=== PATIENT | male | born 1965 | race Caucasian/White ===

== ENCOUNTER 2019-09-26 08:03 | Outpatient (CLI) | payer MEDICAID, SELFPAY ==
[2019-09-26 08:58] VITALS: BMI 31.6
--- NOTE | 2019-09-26 09:22 | ECG_ITS ---
NAME OF STUDY: LEXISCAN SESTAMIBI STRESS TEST INDICATION: Chest Pain; Shortness of Breath NOTE: Please note that this is the electrocardiogram portion of the Lexiscan/Sestamibi stress test. The perfusion scan will be documented separately. DATA: Baseline heart rate was 85 beats per minute. Baseline blood pressure was 143/85 millimeters of mercury. Target heart rate was 167. Maximum heart rate achieved was 95. which was 56 % of the predicted target heart rate. Maximum blood pressure was 143/85 millimeters of mercury. The reason for ending the test was completion of the protocol. The patient experienced shortness of breath which was then resolved at the end of the test. ELECTROCARDIOGRAM: BASELINE: Sinus rhythm. Normal axis. Interventricular conduction delay, no ST-T changes suggestive of ischemia noted. No arrhythmia noted. EXERCISE: After Lexiscan injection, no ST-T changes suggestive of ischemic noted. No arrhythmia noted. CONCLUSION: Please note due to baseline abnormality of the EKG specificity and sensitivity of the EKG portion of LexiScan MIBI stress test will be low 1. EKG not suggestive of ischemia 2. Lexiscan injection unremarkable. 3. Perfusion scan will be documented separately. Electronically Signed On 09-26-2019 18:17:53 INSOLE AND HEEL STIFFENER by Bhaskar Ramachandran M.D. [email or web address]
--- NOTE | 2019-09-26 09:23 | NMCV_ITS ---
NM MIBI/MIBI Stress/Rest [address] Nicko Obrien Age: 54 Gender: M : 1965 Exam Date: 09/26/2019 09:14 Ordering Phys: Breana Marrero Technologist: LILY Verdin Exam Location: [facility] Indications: Chest Pain and S.O.B. STRESS TEST [facility] IMAGE PROTOCOL Rest/Stress 1 Lexiscan Day Radiopharmaceutical Dose (mCi) Administration Site Administered by Rest: Tc-99m 10.2 IV LILY Verdin Sestamibi Stress:Tc-99m 30.6 IV LILY Verdin Sestamibi Rest: 26-Sep-2019 60 Discovery 630 Stress: 26-Sep-2019 60 Discovery 630 0.4mg Lexiscan. Images obtained in supine and prone position. SPECT RESULTS Technical Quality: Good Raw Data Analysis: Normal, Soft tissue attenuation Image Corrections: No attenuation or motion correction applied Summed Stress Score: 1 Summed Rest Score: 0 Summed Difference Score: 1 PERFUSION FINDINGS SPECT images demonstrate homogeneous tracer distribution throughout the myocardium. FUNCTIONAL RESULTS (calculated via Gated SPECT) Stress Image LV EF (%): 70 Stress EDV (mL):98 TID: 0.96 Stress ESV (mL):29 Rest Image LV EF (%): 70 FUNCTIONAL FINDINGS: There is normal left ventricular systolic function. IMPRESSIONS Myocardial perfusion imaging is normal and low probability for obstructive coronary disease. EKG segment will be documented separately. Bhaskar Ramachandran MD (Electronically Signed) Final Date: 26 September 2019 13:06 S
[2019-09-26] MEDS: regadenoson 0.4 Mg/5 ml Syringe IVP (09:53)
[2019-09-26 10:07] VITALS: BP 143/85; PULSE 84
--- NOTE | 2019-09-26 10:10 | SUR.PREOP ---
Patient reports no pain or discomfort prior to the start of the procedure.
== END 2019-09-26 08:04 | disposition home or self-care (01) ==
LOC: RAD 08:11 → CDL 08:16
PROVIDERS: Family Provider Family Medicine; PCP Family Medicine; Visit Provider Nurse Practitioner Family
DX: R07.9 Chest pain, unspecified (principal); R53.83 Other fatigue; R06.02 Shortness of breath
CPT/HCPCS: 78452; 93017; A9500; J2785

== ENCOUNTER → 2019-10-24 09:30 | Outpatient (BNVA) | payer MEDICAID, SELFPAY | PROVIDERS: Family Provider Family Medicine; PCP Family Medicine; Visit Provider Specialist | DX: M25.562 Pain in left knee (principal); M25.561 Pain in right knee | CPT/HCPCS: 73560; 73565 ==

== ENCOUNTER 2019-10-31 15:57 | Emergency (ER) | payer MEDICAID, SELFPAY ==
[2019-10-31 16:01] VITALS: BMI 37.9
[2019-10-31 16:03] VITALS: BP 163/75; PULSE 102; RESP 18; TEMP 36.9; O2SAT 97
--- NOTE | 2019-10-31 16:04 | ED_ITS ---
Entered by Vero Pérez, acting as scribe for Ricardo Vallejo DO Documented by User: Darcy Ochoa MD 10/31/19 19:22 HPI - Neuro Symptoms/Deficit General: Chief Complaint: Neuro Symptoms/Deficit Stated Complaint: Poss stroke? Time Seen by Provider: 10/31/19 16:04 PFSH ED PFSH: Statuses (acute, chronic, etc) shown below reflect problem list status as previously entered and may not be historically accurate Social History Smoking and tobacco status: never smoked Alcohol intake: former Course Vital Signs: Vital signs: Vital Signs Temperature 98.4 F 10/31/19 16:03 Pulse Rate 99 10/31/19 19:22 Respiratory Rate 21 H 10/31/19 19:22 Blood Pressure 133/61 10/31/19 19:22 Pulse Oximetry 98 10/31/19 19:22 MDM - Neuro Symptoms/Deficit MDM Narrative: Medical decision making narrative: Patient presents here with paresthesias that is since resolved. Patient's had the symptoms for a while has no signs of acute stroke here. Patient's head CT is normal. Hemoglobin is lower than previous. I did a rectal exam that showed no signs of blood in his stool. I spoke to patient by possible admission he states he feels improved and would like to go home. I feel he is stable for discharge and informed him he needs to follow-up with his primary doctor in 3 to 5 weeks to have his hemoglobin checked. He is to return to ER if he worsens. He understands and agrees to this plan. Lab Data: Labs: Lab Results 10/31/19 10/31/19 10/31/19 Range/Units 16:15 16:36 16:36 WBC 4.3 (4.0-10.0) 10^3/ uL RBC 4.25 (4.1-5.3) 10^6/u L Hgb 8.2 L (11.7-16.6) g/dL Hct 29.7 L (42.0-52.0) % MCV 69.9 L (80-94) fL MCH 19.3 L (28.0-34.0) pg MCHC 27.6 L (30.0-36.0) g/dL RDW 15.9 H (12.1-15.1) % Plt Count 240 (130-400) 10^3/c mm MPV 10.3 (7.4-10.4) fL Neut % (Auto) 58.5 % Lymph % (Auto) 26.0 % [place] % (Auto) 9.6 % Eos % (Auto) 5.2 % Baso % (Auto) 0.5 % Neut # (Auto) 2.5 (1.8-7.7) 10^3/u L Lymph # (Auto) 1.1 (0.8-4.8) 10^3/u L [place] # (Auto) 0.4 (0.2-0.9) 10^3/u L Eos # (Auto) 0.2 (0.0-0.8) 10^3/u L Baso # (Auto) 0.0 (0.0-0.1) 10^3/u L Nucleated RBC % (a uto) 0 % Nucleated RBCs # 0.0 /100WBC PT 14.90 H (10.5-13.3) SECO NDS INR 1.13 (0.8-1.2) APTT 34.1 (23.9-36.7) SECO NDS Sodium (136-145) mmol/L Potassium (3.5-5.1) mmol/L Chloride (98-107) mmol/L Carbon Dioxide (22-29) mmol/L Anion Gap (5-19) BUN (6-20) mg/dL Creatinine (0.7-1.2) mg/dL GFR Calculation (90-130) mL/min Glucose (65-115) mg/dL POC Glucose 294 (70-110) mg/dL Calcium (8.5-10.5) mg/dL Total Bilirubin (0.15-1.2) mg/dL AST (0-40) U/L ALT (0-41) U/L Alkaline Phosphata se (40-130) IU/L Total Protein (6.6-8.7) g/dL Albumin (3.5-5.2) g/dL Globulin (1.3-4.6) g/dL Urine Color (Yellow) Urine Appearance (CLEAR) Urine pH (5-7) Ur Specific Gravit y (1.005-1.030) Urine Protein (Negative) Urine Glucose (UA) (Normal) Urine Ketones (Negative) Urine Occult Blood (Negative) Urine Nitrate (Negative) Urine Bilirubin (NEGATIVE) Urine Urobilinogen (Negative) mg/dL Ur Leukocyte Jessica ase (Negative) Urine Opiates Scre en (Negative) ng/mL Ur Barbiturates Sc reen (Negative) ng/mL Ur Phencyclidine S crn (Negative) ng/mL Ur Amphetamines Sc reen (Negative) ng/mL U Benzodiazepines Scrn (Negative) ng/mL Urine Cocaine Scre en (Negative) ng/mL U Marijuana (THC) Screen (Negative) ng/mL 10/31/19 10/31/19 10/31/19 Range/Units 16:36 17:45 17:45 WBC (4.0-10.0) 10^3/ uL RBC (4.1-5.3) 10^6/u L Hgb (11.7-16.6) g/dL Hct (42.0-52.0) % MCV (80-94) fL MCH (28.0-34.0) pg MCHC (30.0-36.0) g/dL RDW (12.1-15.1) % Plt Count (130-400) 10^3/c mm MPV (7.4-10.4) fL Neut % (Auto) % Lymph % (Auto) % [place] % (Auto) % Eos % (Auto) % Baso % (Auto) % Neut # (Auto) (1.8-7.7) 10^3/u L Lymph # (Auto) (0.8-4.8) 10^3/u L [place] # (Auto) (0.2-0.9) 10^3/u L Eos # (Auto) (0.0-0.8) 10^3/u L Baso # (Auto) (0.0-0.1) 10^3/u L Nucleated RBC % (a uto) % Nucleated RBCs # /100WBC PT (10.5-13.3) SECO NDS INR (0.8-1.2) APTT (23.9-36.7) SECO NDS Sodium 132 L (136-145) mmol/L Potassium 4.2 (3.5-5.1) mmol/L Chloride 98 (98-107) mmol/L Carbon Dioxide 24 (22-29) mmol/L Anion Gap 14.2 (5-19) BUN 8 (6-20) mg/dL Creatinine 0.8 (0.7-1.2) mg/dL GFR Calculation 101.1 (90-130) mL/min Glucose 319 H (65-115) mg/dL POC Glucose (70-110) mg/dL Calcium 9.3 (8.5-10.5) mg/dL Total Bilirubin 0.4 (0.15-1.2) mg/dL AST 55 H (0-40) U/L ALT 48 H (0-41) U/L Alkaline Phosphata se 135 H (40-130) IU/L Total Protein 7.4 (6.6-8.7) g/dL Albumin 4.1 (3.5-5.2) g/dL Globulin 3.3 (1.3-4.6) g/dL Urine Color Yellow (Yellow) Urine Appearance Clear (CLEAR) Urine pH 5 (5-7) Ur Specific Gravit y 1.015 (1.005-1.030) Urine Protein Neg (Negative) Urine Glucose (UA) 4+ H (Normal) Urine Ketones Negative (Negative) Urine Occult Blood Neg (Negative) Urine Nitrate Negative (Negative) Urine Bilirubin Neg (NEGATIVE) Urine Urobilinogen Norm (Negative) mg/dL Ur Leukocyte Jessica ase Negative (Negative) Urine Opiates Scre en Negative (Negative) ng/mL Ur Barbiturates Sc reen Negative (Negative) ng/mL Ur Phencyclidine S crn Negative (Negative) ng/mL Ur Amphetamines Sc reen Negative (Negative) ng/mL U Benzodiazepines Scrn Negative (Negative) ng/mL Urine Cocaine Scre en Negative (Negative) ng/mL U Marijuana (THC) Screen Negative (Negative) ng/mL Discharge Plan Discharge Patient Disposition: Home, Self-Care Clinical Impression: Paresthesia Anemia Qualifiers: Anemia type: unspecified type Qualified Code(s): D64.9 - Anemia, unspecified Condition: Stable Prescriptions: No Action Humira Pen 40 mg/0.8 mL pen injector kit 40 mg SUBCUT ONCE RF: 0 pantoprazole 40 mg tablet,delayed release (DR/EC) 40 mg PO QDAY RF: 0 venlafaxine [Effexor XR] 150 mg capsule,extended release 24hr 150 mg PO QDAY RF: 0 aspirin [Adult Low Dose Aspirin] 81 mg tablet,delayed release (DR/EC) 81 mg PO QDAY RF: 0 metformin 500 mg tablet 500 mg PO BID RF: 0 lisinopril 20 mg tablet 20 mg PO QDAY RF: 0 lovastatin 20 mg tablet 20 mg PO QDAY RF: 0 tizanidine 4 mg capsule 4 mg PO TID PRNRF: 0 naproxen 500 mg tablet 500 mg PO BID RF: 0 amitriptyline 50 mg tablet 50 mg PO QDAY RF: 0 tramadol 50 mg tablet 50 mg PO BID PRNRF: 0 isosorbide mononitrate 30 mg tablet extended release 24 hr 30 mg PO QDAY 30 Days Qty: 30 RF: 0 Discharge Orders: Discharge Order (Routine); Ordered 10/31/19 Ordered By: Darcy Ochoa Referrals: Luis Fernando Rhodes [Primary Care Provider] - 4-7 days Discharge Diet: Advance as tolerated Discharge Activity: Resume usual activity Patient Instructions: Paresthesia (ED), Anemia (ED) Discharge Date/Time: 10/31/19 19:22 Coding Level of Care Code ED Stretcher Leveler Operator for Chg Fwd Exam Problem Focused Documented by User: Ricardo Vallejo DO 11/03/19 06:37 HPI - Neuro Symptoms/Deficit General: Chief Complaint: Neuro Symptoms/Deficit Stated Complaint: Poss stroke? Time Seen by Provider: 10/31/19 16:04 Source: patient and family Mode of arrival: ambulatory Limitations: no limitations History of Present Illness: HPI Narrative: 54 yo male presents with numbness to R face and R arm. pt states this started today. pt has had chest pain in the L chest. pt states he has a hx of strokes. pt denies any other symptoms at this time. No history of previous coronary artery disease. Symptoms are not associated any exertions. Onset (ago): hour(s) (today) Timing confirmed by: spouse and family member Location: right face and right arm Severity: mild Quality: numb Relieving factors: none Exacerbating factors: none Context: sudden onset Associated symptoms: Reports no associated symptoms and chest pain (Left sided); Deny headache(s), malaise, nausea, vertigo or vomiting Treatments Prior to Arrival: none Review of Systems Const: Denies: fever, chills, body aches, fatigue, malaise or night sweats Eyes: Denies: photophobia ENMT: Denies: throat pain, oral sores/lesions, dental pain, nasal discharge or nasal congestion Card: Reports: chest pain (Left sided) Resp: Denies: shortness of breath, productive cough, non-productive cough or wheezing GI: Denies: abdominal pain, nausea, vomiting, vomiting blood, coffee grounds in vomit, difficulty swallowing, heartburn/indigestion, diarrhea, constipation, cramping, blood in stool or black tarry stool : Denies: flank pain, difficulty urinating, painful urination, urinary frequency, urinary urgency, urinary incontinence or blood in urine Skin/Breast: Denies: rash, itching or redness Neuro: Denies: headache, weakness in extremities, changes in sensation, lack of coordination, difficulty walking, frequent falls, dizziness, vertigo or confusion Psych: Denies: anxiety, depression, loss of interest, visual hallucinations, auditory hallucinations, suicidal ideation or homicidal ideation Endo: Denies: excessive urination, excessive thirst, tired all the time or cold intolerance Jayson/Lymph: Denies: easy bruising, easy bleeding, petechiae, enlarged lymph nodes or tender lymph nodes All/Imm: Denies: acute wheezing PFSH ED PFSH: Statuses (acute, chronic, etc) shown below reflect problem list status as previously entered and may not be historically accurate Social History Smoking and tobacco status: never smoked Alcohol intake: former NIH stroke score NIHSS: Level Of Consciousness - 1a: 0 Level Of Consciousness Questions - 1b: Both Correct Level Of Consciousness Commands - 1c: Both Correct Best Gaze - 2: Normal Visual Ch - 3: No Visual Loss Facial Palsy - 4: Normal Motor Arm Right - 5: No Drift Motor Arm Left - 5: No Drift Motor Leg Right - 6: No Drift Motor Leg Left - 6: No Drift Limb Ataxia - 7: Absent Sensory - 8: Mild To Moderate Loss Best Language - 9: No Aphasia Dysarthia - 10: Normal Extinction And Inattention - 11: 0 Score: Total Score: 1 Physical Exam Const: COMMON NORMALS: average body habitus, oriented x3 and alert GENERAL APPEARANCE: cooperative, comfortable, well kempt and well developed NUTRITIONAL APPEARANCE: obese ORIENTATION/CONSCIOUSNESS: Yes awake, Yes oriented to person and Yes oriented to place HENMT: COMMON NORMALS: normocephalic, head/scalp atraumatic, EAC's normal, TM's normal bilaterally, external nose normal, moist oral mucous membranes and oropharynx normal HEAD & SCALP: normocephalic and atraumatic NOSE: external nose normal EXTERNAL AUDITORY CANAL: EAC's normal TYMPANIC MEMBRANE: TM's normal bilaterally MOUTH: oral and palatal mucosa normal, lip normal and tongue normal THROAT: posterior oropharynx normal and tonsils normal Eye: COMMON NORMALS: PERRL, EOMs intact bilaterally, conjunctivae normal and no scleral icterus CONJUNCTIVA: Yes conjunctivae normal PUPIL: Yes PERRL Neck/C-Spine: COMMON NORMALS: full ROM, no lymphadenopathy, supple, no meningeal signs and thyroid normal THYROID: thyroid normal and asymmetrical Lymph: LYMPHATIC: no lymphadenopathy noted Resp: COMMON NORMALS: normal respiratory effort, no retractions, no use of accessory muscles and clear to auscultation bilaterally AUSCULTATION: clear to auscultation bilaterally GI: COMMON NORMALS: normal to inspection, nondistended, normoactive bowel sounds, soft to palpation and no hepatosplenomegaly PALPATION: Yes soft and Yes no hepatosplenomegaly : COMMON NORMALS: Yes no CVA tenderness BLADDER/KIDNEY EXAM: Yes no CVA tenderness Back/Pelvis: COMMON NORMALS: no CVA tenderness LUMBAR SPINE/LOWER BACK: Yes normal to inspection Neuro: COMMON NORMALS: oriented x3 SENSORIUM/ORIENTATION: Yes alert, Yes oriented to person and Yes oriented to place MENINGEAL SIGNS: Yes no meningeal signs Psych: APPEARANCE: Yes well kempt Skin: COMMON NORMALS: no rashes or lesions noted and skin turgor normal GENERAL SKIN EXAM: no rashes or lesions noted and turgor normal Course ED course: Care transferred to Dr. Ochoa at change of shift Vital Signs: Vital signs: Vital Signs Temperature 98.4 F 10/31/19 16:03 Pulse Rate 99 10/31/19 19:22 Respiratory Rate 21 H 10/31/19 19:22 Blood Pressure 133/61 10/31/19 19:22 Pulse Oximetry 98 10/31/19 19:22 MDM - Neuro Symptoms/Deficit Lab Data: Labs: Lab Results 10/31/19 10/31/19 10/31/19 Range/Units 16:15 16:36 16:36 WBC 4.3 (4.0-10.0) 10^3/ uL RBC 4.25 (4.1-5.3) 10^6/u L Hgb 8.2 L (11.7-16.6) g/dL Hct 29.7 L (42.0-52.0) % MCV 69.9 L (80-94) fL MCH 19.3 L (28.0-34.0) pg MCHC 27.6 L (30.0-36.0) g/dL RDW 15.9 H (12.1-15.1) % Plt Count 240 (130-400) 10^3/c mm MPV 10.3 (7.4-10.4) fL Neut % (Auto) 58.5 % Lymph % (Auto) 26.0 % [place] % (Auto) 9.6 % Eos % (Auto) 5.2 % Baso % (Auto) 0.5 % Neut # (Auto) 2.5 (1.8-7.7) 10^3/u L Lymph # (Auto) 1.1 (0.8-4.8) 10^3/u L [place] # (Auto) 0.4 (0.2-0.9) 10^3/u L Eos # (Auto) 0.2 (0.0-0.8) 10^3/u L Baso # (Auto) 0.0 (0.0-0.1) 10^3/u L Nucleated RBC % (a uto) 0 % Nucleated RBCs # 0.0 /100WBC PT 14.90 H (10.5-13.3) SECO NDS INR 1.13 (0.8-1.2) APTT 34.1 (23.9-36.7) SECO NDS Sodium (136-145) mmol/L Potassium (3.5-5.1) mmol/L Chloride (98-107) mmol/L Carbon Dioxide (22-29) mmol/L Anion Gap (5-19) BUN (6-20) mg/dL Creatinine (0.7-1.2) mg/dL GFR Calculation (90-130) mL/min Glucose (65-115) mg/dL POC Glucose 294 (70-110) mg/dL Calcium (8.5-10.5) mg/dL Total Bilirubin (0.15-1.2) mg/dL AST (0-40) U/L ALT (0-41) U/L Alkaline Phosphata se (40-130) IU/L Total Protein (6.6-8.7) g/dL Albumin (3.5-5.2) g/dL Globulin (1.3-4.6) g/dL Urine Color (Yellow) Urine Appearance (CLEAR) Urine pH (5-7) Ur Specific Gravit y (1.005-1.030) Urine Protein (Negative) Urine Glucose (UA) (Normal) Urine Ketones (Negative) Urine Occult Blood (Negative) Urine Nitrate (Negative) Urine Bilirubin (NEGATIVE) Urine Urobilinogen (Negative) mg/dL Ur Leukocyte Jessica ase (Negative) Urine Opiates Scre en (Negative) ng/mL Ur Barbiturates Sc reen (Negative) ng/mL Ur Phencyclidine S crn (Negative) ng/mL Ur Amphetamines Sc reen (Negative) ng/mL U Benzodiazepines Scrn (Negative) ng/mL Urine Cocaine Scre en (Negative) ng/mL U Marijuana (THC) Screen (Negative) ng/mL 10/31/19 10/31/19 10/31/19 Range/Units 16:36 17:45 17:45 WBC (4.0-10.0) 10^3/ uL RBC (4.1-5.3) 10^6/u L Hgb (11.7-16.6) g/dL Hct (42.0-52.0) % MCV (80-94) fL MCH (28.0-34.0) pg MCHC (30.0-36.0) g/dL RDW (12.1-15.1) % Plt Count (130-400) 10^3/c mm MPV (7.4-10.4) fL Neut % (Auto) % Lymph % (Auto) % [place] % (Auto) % Eos % (Auto) % Baso % (Auto) % Neut # (Auto) (1.8-7.7) 10^3/u L Lymph # (Auto) (0.8-4.8) 10^3/u L [place] # (Auto) (0.2-0.9) 10^3/u L Eos # (Auto) (0.0-0.8) 10^3/u L Baso # (Auto) (0.0-0.1) 10^3/u L Nucleated RBC % (a uto) % Nucleated RBCs # /100WBC PT (10.5-13.3) SECO NDS INR (0.8-1.2) APTT (23.9-36.7) SECO NDS Sodium 132 L (136-145) mmol/L Potassium 4.2 (3.5-5.1) mmol/L Chloride 98 (98-107) mmol/L Carbon Dioxide 24 (22-29) mmol/L Anion Gap 14.2 (5-19) BUN 8 (6-20) mg/dL Creatinine 0.8 (0.7-1.2) mg/dL GFR Calculation 101.1 (90-130) mL/min Glucose 319 H (65-115) mg/dL POC Glucose (70-110) mg/dL Calcium 9.3 (8.5-10.5) mg/dL Total Bilirubin 0.4 (0.15-1.2) mg/dL AST 55 H (0-40) U/L ALT 48 H (0-41) U/L Alkaline Phosphata se 135 H (40-130) IU/L Total Protein 7.4 (6.6-8.7) g/dL Albumin 4.1 (3.5-5.2) g/dL Globulin 3.3 (1.3-4.6) g/dL Urine Color Yellow (Yellow) Urine Appearance Clear (CLEAR) Urine pH 5 (5-7) Ur Specific Gravit y 1.015 (1.005-1.030) Urine Protein Neg (Negative) Urine Glucose (UA) 4+ H (Normal) Urine Ketones Negative (Negative) Urine Occult Blood Neg (Negative) Urine Nitrate Negative (Negative) Urine Bilirubin Neg (NEGATIVE) Urine Urobilinogen Norm (Negative) mg/dL Ur Leukocyte Jessica ase Negative (Negative) Urine Opiates Scre en Negative (Negative) ng/mL Ur Barbiturates Sc reen Negative (Negative) ng/mL Ur Phencyclidine S crn Negative (Negative) ng/mL Ur Amphetamines Sc reen Negative (Negative) ng/mL U Benzodiazepines Scrn Negative (Negative) ng/mL Urine Cocaine Scre en Negative (Negative) ng/mL U Marijuana (THC) Screen Negative (Negative) ng/mL Imaging Data^: CT Head: Radiologist's impression: [address] [address] [address] Scan Report Signed Patient: Nicko Obrien #: [id number] : 1965Acct#:[id number] Age/Sex: 54 / MADM Date: 10/31/19 Loc: ERRoom/Bed: Attending Dr: Ordering Provider/Ordering MD: Ricardo Vallejo DO Date of Service: 10/31/19 Procedure(s): CT head wo con* [id number] Accession Number(s): [id number] Report Number: [id number] WS: [id number] CT scan of the head, 10/31/2019 Clinical Data: Symptoms of Acute Stroke Comparison: MRI of the head and brain, 12/21/2009 DLP: 891.[address] scans at [facility] use at least one of these dose optimization techniques: automated exposure control; mA and/or kV adjustment per patient size (includes targeted exams where dose is matched to clinical indication); or iterative reconstruction. Findings: The ventricular system is normal without shift. No recent infarct or hemorrhage is seen. There are no abnormal intracerebral masses. The cerebellum and brainstem are not remarkable. Bony windows of the skull and skull base show no fractures or erosions. The mastoid air cells, internal auditory canals, sella turcica, intraorbital contents, and paranasal sinuses are unremarkable. CT/CT head wo con* [id number] Impression: Negative CT scan of the head Dictated By:Elsa Blas MD Signed By:Elsa Blasigned Date/Time:10/31/19 1618 Discharge Plan Discharge Patient Disposition: Home, Self-Care Clinical Impression: Paresthesia Anemia Qualifiers: Anemia type: unspecified type Qualified Code(s): D64.9 - Anemia, unspecified Condition: Stable Prescriptions: No Action Humira Pen 40 mg/0.8 mL pen injector kit 40 mg SUBCUT ONCE RF: 0 pantoprazole 40 mg tablet,delayed release (DR/EC) 40 mg PO QDAY RF: 0 venlafaxine [Effexor XR] 150 mg capsule,extended release 24hr 150 mg PO QDAY RF: 0 aspirin [Adult Low Dose Aspirin] 81 mg tablet,delayed release (DR/EC) 81 mg PO QDAY RF: 0 metformin 500 mg tablet 500 mg PO BID RF: 0 lisinopril 20 mg tablet 20 mg PO QDAY RF: 0 lovastatin 20 mg tablet 20 mg PO QDAY RF: 0 tizanidine 4 mg capsule 4 mg PO TID PRNRF: 0 naproxen 500 mg tablet 500 mg PO BID RF: 0 amitriptyline 50 mg tablet 50 mg PO QDAY RF: 0 tramadol 50 mg tablet 50 mg PO BID PRNRF: 0 isosorbide mononitrate 30 mg tablet extended release 24 hr 30 mg PO QDAY 30 Days Qty: 30 RF: 0 Discharge Orders: Discharge Order (Routine); Ordered 10/31/19 Ordered By: Darcy Ochoa Referrals: Luis Fernando Rhodes [Primary Care Provider] - 4-7 days Discharge Diet: Advance as tolerated Discharge Activity: Resume usual activity Patient Instructions: Paresthesia (ED), Anemia (ED) Discharge Date/Time: 10/31/19 19:22 Coding Level of Care Code ED Stretcher Leveler Operator for Chg Fwd Exam Problem Focused The documentation recorded by the Beto damian Bridget Annette, accurately reflects the service I personally performed and the decisions made by Yoni tsai Curtis L, DO Oct 31, 2019 15:57
--- NOTE | 2019-10-31 16:12 | ECG_ITS ---
Measurements Intervals [place] Rate: 101 P: 56 OH: 156 QRS: 20 QRSD: 92 T: 46 QT: 330 QTc: 429 SINUS TACHYCARDIA ABNORMAL RHYTHM ECG Compared to ECG 03/26/2018 07:48:34 Atrial-paced complex(es) or rhythm no longer present Myocardial infarct finding no longer present Electronically Signed On 10-31-2019 20:06:45 LINE CONSTRUCTION ENGINEER by Bhaskar Ramachandran M.D. [id number]
--- NOTE | 2019-10-31 16:12 | CT_ITS ---
WS: [id number] CT scan of the head, 10/31/2019 Clinical Data: Symptoms of Acute Stroke Comparison: MRI of the head and brain, 12/21/2009 DLP: 891.[address] scans at [facility] use at least one of these dose optimization techniques: automat ed exposure control; mA and/or kV adjustment per patient size (includes targeted exams where dose is matched to clinical indication); or iterative reconstruction. Findings: The ventricular system is normal without shift. No recent infarct or hemorrhage is seen. There are no abnormal intracerebral masses. The cerebellum and brainstem are not remarkable. Bony windows of the skull and skull base show no fractures or erosions. The mastoid air cells, materials intern al auditory canals, sella turcica, intraorbital contents, and paranasal sinuses are unremarkable. CT/CT head wo con* [id number] Impression: Negative CT scan of the head
[2019-10-31 16:21] LABS: Glucose Point of Care 294 mg/dL (70-110)
[2019-10-31] MEDS: sodium chloride 0.9% 500 ML 999 ML IV (16:47)
[2019-10-31 17:01] LABS: Basophils % 0.5 %; Eosinophils # 0.2 10^3/uL (0.0-0.8); Eosinophils % 5.2 %; Hematocrit 29.7 % (42.0-52.0); Hemoglobin 8.2 g/dL (11.7-16.6); Lymphocytes # 1.1 10^3/uL (0.8-4.8); Mean Corpuscular HGB Conc 27.6 g/dL (30.0-36.0); Mean Corpuscular Hemoglobin 19.3 pg (28.0-34.0); Mean Corpuscular Volume 69.9 fL (80-94); Mean Platelet Volume 10.3 fL (7.4-10.4); Monocytes # 0.4 10^3/uL (0.2-0.9); Monocytes % 9.6 %; Neutrophils # 2.5 10^3/uL (1.8-7.7); Neutrophils % 58.5 %; Nucleated Red Blood Cells % 0 %; Platelet Count 240 10^3/cmm (130-400); Red Blood Count 4.25 10^6/uL (4.1-5.3); Red Cell Distribution Width 15.9 % (12.1-15.1); White Blood Count 4.3 10^3/uL (4.0-10.0)
[2019-10-31 17:17] LABS: INR 1.13 (0.8-1.2)
[2019-10-31 17:18] LABS: Partial Thromboplastin Time 34.1 SECONDS (23.9-36.7)
[2019-10-31 17:19] LABS: Alanine Aminotransferase 48 U/L (0-41); Albumin Level 4.1 g/dL (3.5-5.2); Alkaline Phosphatase 135 IU/L (40-130); Anion Gap 14.2 (5-19); Aspartate Amino Transferase 55 U/L (0-40); Blood Urea Nitrogen 8 mg/dL (6-20); Calcium 9.3 mg/dL (8.5-10.5); Carbon Dioxide 24 mmol/L (22-29); Chloride 98 mmol/L (98-107); Globulin 3.3 g/dL (1.3-4.6); Glomerular Filtration Rate 101.1 mL/min (90-130); Glucose 319 mg/dL (65-115); Potassium 4.2 mmol/L (3.5-5.1); Sodium 132 mmol/L (136-145); Total Bilirubin 0.4 mg/dL (0.15-1.2); Total Protein 7.4 g/dL (6.6-8.7)
[2019-10-31 18:03] LABS: Add Urine Microscopic? NO
[2019-10-31 18:32] LABS: Amphetamines Screen Urine Negative (Negative); Barbiturates Screen Urine Negative (Negative); Benzodiazepines Screen Urine Negative (Negative); Cocaine Screen Urine Negative (Negative); Opiate Screen Urine Negative (Negative); PCP Screen Urine Negative (Negative); THC Screen Urine Negative (Negative)
[2019-10-31 18:37] LABS: Bilirubin Urine Neg (NEGATIVE); Blood Urine Neg (Negative); Glucose Urine UA 4+ (Normal); Ketones Urine Negative (Negative); Leukocyte Esterase Urine Negative (Negative); Nitrate Urine Negative (Negative); Protein Urine Neg (Negative); Specific Gravity, Urine 1.015 (1.005-1.030); Urine Appearance Clear (CLEAR); Urine Color Yellow (Yellow); Urobilinogen Urine Norm (Negative); pH Urine 5 (5-7)
[2019-10-31 19:22] VITALS: BP 133/61; PULSE 99; RESP 21; O2SAT 98
--- NOTE | 2019-11-04 14:31 | DCPLANNER ---
renal case manager had message to speak with patient about getting established with a primary care. renal case manager called patient, unable to speak with patient at this time, a voicemail was left for patient to return manager case phone call.
== END 2019-10-31 19:22 | disposition home or self-care (01) ==
PROVIDERS: Family Medicine; Emergency Provider Emergency Medicine; Family Provider Family Medicine; PCP Family Medicine
DX: R20.2 Paresthesia of skin (principal); D64.9 Anemia, unspecified; Z79.82 Long term (current) use of aspirin; Z79.4 Long term (current) use of insulin
CPT/HCPCS: 36415; 36416; 70450; 80053; 80307; 81003; 82962; 85025; 85610; 85730; 93005; 96360; 99283; 99284; A9270; J7040

== ENCOUNTER 2019-11-03 10:52 | Outpatient (CLI) | payer MEDICAID, SELFPAY ==
--- NOTE | 2019-11-03 11:45 | MR_ITS ---
WS: [id number] MRI RIGHT KNEE HISTORY: Pain COMPARISON: Knee radiograph 10/24/2019 Anterior cruciate ligament: Intact. Posterior cruciate ligament: Intact. Medial collateral ligament: Intact. Posterior lateral corner structures: Intact. Medial menisci: Intrasubstance degeneration in the posterior horn. No full-thickness tear. Lateral meniscus: Intact. Normal signal, size and shape. Extensor mechanism: Distal quadriceps tendon and patellar tendons are intact. Fluid and soft tissue: There is a small suprapatellar joint effusion. No Shelton's cyst. Osseous and articular structures: Patellofemoral compartment: Very slight lateral subluxation of the patella. There is mild thinning an d fissuring of the cartilage, greatest over the medial facet. No marrow edema. Medial compartment: Normal. Lateral compartment: Normal. MR/MR knee RT wo con* [id number] IMPRESSION: 1. Small suprapatellar joint effusion. 2. Mild lateral subluxation of the patella and mild fissuring of the patellar cartilage.
== END 2019-11-03 10:53 | disposition home or self-care (01) ==
LOC: RADSHAW 10:56
PROVIDERS: Family Provider Family Medicine; PCP Family Medicine; Visit Provider Specialist
DX: S83.011A Lateral subluxation of right patella, initial encounter (principal); X58.XXXA Exposure to other specified factors, initial encounter; M25.461 Effusion, right knee
CPT/HCPCS: 73721

== ENCOUNTER 2019-11-20 23:11 | Emergency (ER) | payer MEDICAID, SELFPAY ==
[2019-11-20 23:16] VITALS: BP 126/68; PULSE 96; RESP 18; TEMP 37.3; O2SAT 96; BMI 36.0
[2019-11-21] VITALS (11 sets, daily range): BP systolic 127–154; BP diastolic 56–86; PULSE 85–96; RESP 14–18; TEMP 36.6–36.9; O2SAT 95
--- NOTE | 2019-11-21 01:47 | ED_ITS ---
Entered by Katia Nuñez, acting as scribe for Ej Piper DO Nov 20, 2019 23:11 HPI - General Adult General: Chief complaint: General Medical Stated complaint: HENDRICKSON/SOB Time Seen by Provider: 11/21/19 01:46 Source: patient Mode of arrival: ambulatory History of Present Illness: HPI narrative: 54 y/o male presents to the ED with complaint of fever ( 100.1), cough and congestion. Pt states he has had the cough for a month, and congestion/HENDRICKSON for the past few days. He has had green/yellow sputum. He has been using his inhaler, as prescribed and doing his scheduled breathing treatments. He has family hx of heart dz and is scheduled for cardiac testing soon. Pt states he has a hx of anemia and is scheduled for an upper and lower scope, later this month. MD complaint: Congestion/HENDRICKSON/Cough Location: head and chest Severity: mild Pain Consistency: intermittent Associated symptoms: Reports cough, dyspnea, headache(s) and short of breath; Deny confusion, nausea, rash, palpitations or vomiting Review of Systems Const: Reports: fever; Denies: chills Eyes: Denies: change in vision or blurry vision ENMT: Reports: post nasal drip; Denies: painful swallowing, swelling of lips/tongue or facial/sinus pain Card: Denies: palpitations, irregular heart rhythm, edema or swelling of fee t/ankles Resp: Reports: shortness of breath and productive cough; Denies: non-productive cough or wheezing GI: Denies: abdominal pain, nausea, vomiting, rectal pain, blood in stool or black tarry stool : Denies: difficulty urinating, painful urination, urinary frequency, urinary urgency or blood in urine Musc: Reports: extremity swelling; Denies: neck pain, back pain, redness or joint warmth Skin/Breast: Denies: rash, itching or redness Neuro: Reports: headache; Denies: dizziness, vertigo or confusion Psych: Denies: anxiety PFSH ED PFSH: Social History Smoking and tobacco status: never smoked Alcohol intake: former Lives independently: Yes Household members: spouse History of recent travel: No Physical Exam Const: COMMON NORMALS: alert GENERAL APPEARANCE: well developed ORIENTATION/CONSCIOUSNESS: Yes awake, Yes oriented to person, Yes oriented to place and Yes oriented to time HENMT: COMMON NORMALS: normocephalic, external ears normal, external nose normal and moist oral mucous membranes HEAD & SCALP: normocephalic; no scalp tenderness FACE & SINUS: normal facial exam NOSE: external nose normal and no nasal discharge EXTERNAL EAR: Yes external ears normal MOUTH: tongue normal THROAT: posterior oropharynx normal; no peritonsillar mass Eye: COMMON NORMALS: PERRL, EOMs intact bilaterally and conjunctivae normal EYELID: eyelids normal CONJUNCTIVA: Yes conjunctivae normal PUPIL: Yes PERRL Neck/C-Spine: COMMON NORMALS: full ROM Chest: COMMONS NORMALS: inspection of chest normal CHEST: Yes symmetrical chest wall rise and No tenderness Resp: COMMON NORMALS: clear to auscultation bilaterally EFFORT & INSPEC TION: No tachypneic, No respiratory distress, No retractions, No uses accessory muscles and No tracheal deviation AUSCULTATION: clear to auscultation bilaterally, no rhonchi, no wheezes and diminished lung sounds (mild) Cardio: COMMON NORMALS: regular rate and regular rhythm RATE: regular rate RHYTHM: regular rhythm HEART SOUNDS: no murmurs PERIPHERAL PULSES: radial pulses present GI: INSPECTION: No abdominal distension AUSCULTATION: No hyperactive bowel sounds and No hypoactive bowel sounds PALPATION: No tender, No guarding and No rigid PERCUSSION: no dullness to percussion and no tympanic to percussion Extremity: GENERAL: Yes edema (+1 bilateral) Neuro: SENSORIUM/ORIENTATION: Yes alert, Yes oriented to person, Yes oriented to place and Yes oriented to time Psych: COMMON NORMALS: mental status grossly normal and speech normal SPEECH: Yes normal speech Skin: COMMON NORMALS: no rashes or lesions noted GENERAL SKIN EXAM: no rashes or lesions noted Course Vital Signs: Vital signs: Vital Signs Temperature 98.4 F 11/21/19 06:17 Pulse Rate 96 11/20/19 23:16 Respiratory Rate 18 11/20/19 23:16 Blood Pressure 126/68 11/20/19 23:16 Pulse Oximetry 96 11/20/19 23:16 MDM - General Adult MDM Narrative: Medical decision making narrative: 54-year-old male presents with shortness of breath, cough, and sputum production. He has a history of anemia, and had a hemoglobin of 8.4 last week. It 7.4 today. His other laboratory is benign. He notes that he has endoscopies scheduled I believe next week. His chest x-ray is free of infiltrate, although there is some perihilar opacity on the left side of his chest.. He is not having chest pain. CTA performed, does not reveal a clot or infiltrate. He does have some mediastinal nodes. He is receiving 1 unit of PRBCs. He will be allowed home with treatment for bronchitis. Lab Data: Labs: Lab Results 11/21/19 11/21/19 11/21/19 Range/Units 02:05 02:05 03:40 WBC 6.0 (4.0-10.0) 10^3/ uL RBC 3.91 L (4.1-5.3) 10^6/u L Hgb 7.4 L (11.7-16.6) g/dL Hct 28.3 L (42.0-52.0) % MCV 72.4 L (80-94) fL MCH 18.9 L (28.0-34.0) pg MCHC 26.1 L (30.0-36.0) g/dL RDW 21.4 H (12.1-15.1) % Plt Count 199 (130-400) 10^3/c mm MPV 9.6 (7.4-10.4) fL Neut % (Auto) 57.1 % Lymph % (Auto) 26.8 % [place] % (Auto) 11.5 % Eos % (Auto) 3.8 % Baso % (Auto) 0.3 % Neut # (Auto) 3.4 (1.8-7.7) 10^3/u L Lymph # (Auto) 1.6 (0.8-4.8) 10^3/u L [place] # (Auto) 0.7 (0.2-0.9) 10^3/u L Eos # (Auto) 0.2 (0.0-0.8) 10^3/u L Baso # (Auto) 0.0 (0.0-0.1) 10^3/u L Nucleated RBC % (a uto) 0 % Nucleated RBCs # 0.0 /100WBC Sodium 135 L (136-145) mmol/L Potassium 4.3 (3.5-5.1) mmol/L Chloride 101 (98-107) mmol/L Carbon Dioxide 22 (22-29) mmol/L Anion Gap 16.3 (5-19) BUN 9 (6-20) mg/dL Creatinine 0.9 (0.7-1.2) mg/dL GFR Calculation 88.3 L (90-130) mL/min Glucose 161 H (65-115) mg/dL Calcium 9.2 (8.5-10.5) mg/dL Total Bilirubin 0.4 (0.15-1.2) mg/dL AST 44 H (0-40) U/L ALT 35 (0-41) U/L Alkaline Phosphata se 132 H (40-130) IU/L C-Reactive Protein 17.0 H (0.0-4.9) mg/L NT-Pro-B Natriuret Pep 31 (0-125) pg/mL Total Protein 6.8 (6.6-8.7) g/dL Albumin 3.9 (3.5-5.2) g/dL Globulin 2.9 (1.3-4.6) g/dL Urine Color Yellow (Yellow) Urine Appearance Clear (CLEAR) Urine pH 7 (5-7) Ur Specific Gravit y 1.010 (1.005-1.030) Urine Protein Neg (Negative) Urine Glucose (UA) Norm (Normal) Urine Ketones Negative (Negative) Urine Blood Neg (Negative) Urine Nitrate Negative (Negative) Urine Bilirubin Neg (NEGATIVE) Urine Urobilinogen Norm (Negative) mg/dL Ur Leukocyte Jessica ase Negative (Negative) Urine RBC Rare (0-2) /hpf Urine WBC Rare (0-5) /hpf Ur Squamous Epith Cells Rare (0-5) Urine Bacteria Trace (NONE) Blood Type Rho(D) Type Antibody Screen Crossmatch 11/21/19 Range/Units 03:55 WBC (4.0-10.0) 10^3/ uL RBC (4.1-5.3) 10^6/u L Hgb (11.7-16.6) g/dL Hct (42.0-52.0) % MCV (80-94) fL MCH (28.0-34.0) pg MCHC (30.0-36.0) g/dL RDW (12.1-15.1) % Plt Count (130-400) 10^3/c mm MPV (7.4-10.4) fL Neut % (Auto) % Lymph % (Auto) % [place] % (Auto) % Eos % (Auto) % Baso % (Auto) % Neut # (Auto) (1.8-7.7) 10^3/u L Lymph # (Auto) (0.8-4.8) 10^3/u L [place] # (Auto) (0.2-0.9) 10^3/u L Eos # (Auto) (0.0-0.8) 10^3/u L Baso # (Auto) (0.0-0.1) 10^3/u L Nucleated RBC % (a uto) % Nucleated RBCs # /100WBC Sodium (136-145) mmol/L Potassium (3.5-5.1) mmol/L Chloride (98-107) mmol/L Carbon Dioxide (22-29) mmol/L Anion Gap (5-19) BUN (6-20) mg/dL Creatinine (0.7-1.2) mg/dL GFR Calculation (90-130) mL/min Glucose (65-115) mg/dL Calcium (8.5-10.5) mg/dL Total Bilirubin (0.15-1.2) mg/dL AST (0-40) U/L ALT (0-41) U/L Alkaline Phosphata se (40-130) IU/L C-Reactive Protein (0.0-4.9) mg/L NT-Pro-B Natriuret Pep (0-125) pg/mL Total Protein (6.6-8.7) g/dL Albumin (3.5-5.2) g/dL Globulin (1.3-4.6) g/dL Urine Color (Yellow) Urine Appearance (CLEAR) Urine pH (5-7) Ur Specific Gravit y (1.005-1.030) Urine Protein (Negative) Urine Glucose (UA) (Normal) Urine Ketones (Negative) Urine Blood (Negative) Urine Nitrate (Negative) Urine Bilirubin (NEGATIVE) Urine Urobilinogen (Negative) mg/dL Ur Leukocyte Jessica ase (Negative) Urine RBC (0-2) /hpf Urine WBC (0-5) /hpf Ur Squamous Epith Cells (0-5) Urine Bacteria (NONE) Blood Type B Positive Rho(D) Type Positive Antibody Screen Negative Crossmatch See Detail Discharge Plan Discharge Patient Disposition: Home, Self-Care Clinical Impression: Bronchitis Anemia Qualifiers: Anemia type: iron deficiency Iron deficiency anemia type: unspecified iron deficiency Qualified Code(s): D50.9 - Iron deficiency anemia, unspecified Condition: Stable Prescriptions: New doxycycline hyclate 100 mg capsule 100 mg PO BID 10 Days Qty: 20 RF: 0 prednisone 20 mg tablet 40 mg PO DAILY 5 Days Qty: 10 RF: 0 No Action Humira Pen 40 mg/0.8 mL pen injector kit 40 mg SUBCUT ONCE RF: 0 pantoprazole 40 mg tablet,delayed release (DR/EC) 40 mg PO QDAY RF: 0 venlafaxine [Effexor XR] 150 mg capsule,extended release 24hr 150 mg PO QDAY RF: 0 aspirin [Adult Low Dose Aspirin] 81 mg tablet,delayed release (DR/EC) 81 mg PO QDAY RF: 0 metformin 500 mg tablet 500 mg PO BID RF: 0 lisinopril 20 mg tablet 20 mg PO QDAY RF: 0 lovastatin 20 mg tablet 20 mg PO QDAY RF: 0 tizanidine 4 mg capsule 4 mg PO TID PRNRF: 0 naproxen 500 mg tablet 500 mg PO BID RF: 0 amitriptyline 50 mg tablet 50 mg PO QDAY RF: 0 tramadol 50 mg tablet 50 mg PO BID PRNRF: 0 glipizide 5 mg tablet 5 mg PO DAILY RF: 0 ferrous sulfate 325 mg (65 mg iron) tablet 325 mg PO BID RF: 0 isosorbide mononitrate 30 mg tablet extended release 24 hr 30 mg PO QDAY 30 Days Qty: 30 RF: 11 aspirin 81 mg Tablet,Chewable 81 mg PO DAILY RF: 0 Coricidin HBP Chest Anthony-Cough 10-200 mg Capsule 1 tab-cap PO Q8H PRN (Reason: Congestion) RF: 0 Discharge Orders: Discharge Order (Routine); Ordered 11/21/19 Ordered By: Ej Piper Referrals: Luis Fernando Rhodes [Primary Care Provider] - 1-3 days Discharge Diet: Advance as tolerated Discharge Activity: Increase activity as tolerated Patient Instructions: Acute Bronchitis (ED), Anemia (ED) Activity Restrictions/Additional Instructions: Return for worsening shortness of breath, chest discomfort, fever greater than 100, etc. despite treatment. You should have your blood count rechecked in 2 to 3 days to ensure it came up appropriately. Use your inhaler every 4 hours while awake for the first 2 days, then as needed. Coding Level of Care Code ED Reducing Machine Operator for Chg Fwd Exam Comprehensive The documentation recorded by the ectoribJoaquin ibrahim Ashley, accurately reflects the service I personally performed and the decisions made by me, Ej Piper DO Nov 20, 2019 23:11
--- NOTE | 2019-11-21 01:56 | ECG_ITS ---
Measurements Intervals Lynn Rate: 85 P: 66 IN: 158 QRS: 50 QRSD: 83 T: 61 QT: 367 QTc: 438 SINUS RHYTHM Compared to ECG 10/31/2019 16:16:02 Sinus tachycardia no longer present Electronically Signed On 11-21-2019 20:21:40 LAND SURVEYING SURVEY WORKER by Chiara Perez M.D. [email or web address]
--- NOTE | 2019-11-21 01:57 | XR_ITS ---
WS: [id number] XR chest 2V* [id number] REASON FOR EXAM: sob FINDINGS: Comparisons April 01, 2019. The heart and mediastinal interfaces are normal. The lung david are well aerated there are scattered granulomas bilaterally similar to the previous e xam. The hilum and apices are normal. No osseous abnormalities. A scoliotic curve convex to the right is seen. XR/XR chest 2V* [id number] IMPRESSION: Negative chest for active pathology.
[2019-11-21 02:16] LABS: Basophils % 0.3 %; Eosinophils # 0.2 10^3/uL (0.0-0.8); Eosinophils % 3.8 %; Hematocrit 28.3 % (42.0-52.0); Hemoglobin 7.4 g/dL (11.7-16.6); Lymphocytes # 1.6 10^3/uL (0.8-4.8); Lymphocytes % 26.8 %; Mean Corpuscular HGB Conc 26.1 g/dL (30.0-36.0); Mean Corpuscular Hemoglobin 18.9 pg (28.0-34.0); Mean Corpuscular Volume 72.4 fL (80-94); Mean Platelet Volume 9.6 fL (7.4-10.4); Monocytes # 0.7 10^3/uL (0.2-0.9); Monocytes % 11.5 %; Neutrophils # 3.4 10^3/uL (1.8-7.7); Neutrophils % 57.1 %; Nucleated Red Blood Cells % 0 %; Platelet Count 199 10^3/cmm (130-400); Red Blood Count 3.91 10^6/uL (4.1-5.3); Red Cell Distribution Width 21.4 % (12.1-15.1)
[2019-11-21 02:41] LABS: Alanine Aminotransferase 35 U/L (0-41); Albumin Level 3.9 g/dL (3.5-5.2); Alkaline Phosphatase 132 IU/L (40-130); Anion Gap 16.3 (5-19); Aspartate Amino Transferase 44 U/L (0-40); Blood Urea Nitrogen 9 mg/dL (6-20); Calcium 9.2 mg/dL (8.5-10.5); Carbon Dioxide 22 mmol/L (22-29); Chloride 101 mmol/L (98-107); Globulin 2.9 g/dL (1.3-4.6); Glomerular Filtration Rate 88.3 mL/min (90-130); Glucose 161 mg/dL (65-115); NT Pro B Type Natriuretic Pept 31 pg/mL (0-125); Potassium 4.3 mmol/L (3.5-5.1); Sodium 135 mmol/L (136-145); Total Bilirubin 0.4 mg/dL (0.15-1.2); Total Protein 6.8 g/dL (6.6-8.7)
--- NOTE | 2019-11-21 03:15 | CTR_ITS ---
PROCEDURE INFORMATION: Exam: CT Angiography Chest With Contrast Exam date and time: 11/21/2019 3:20 AM Age: 54 years old Clinical indication: Dyspnea; Additional info: Chest pain TECHNIQUE: Imaging protocol: Computed tomographic angiography of the chest with intravenous contrast. 3D rendering: MIP and/or 3D reconstructed images were created by the technologist. Total DLP: 623.18 mGy-cm Radiation optimization: All CT scans at this facility use at least one of these dose optimization techniques: automated exposure control; mA and/or kV adjustment per patient size (includes targeted exams where dose is matched to clinical indication); or iterative reconstruction. Contrast material: VISI; Contrast volume: 95 ml; Contrast route: IV; COMPARISON: CT Chest/Abdomen/Pelvis wo IV 03/10/2017 11:34 AM FINDINGS: Limitations: Motion on multiple slices through the lung bases. Pulmonary arteries: No central or segmental pulmonary embolus. No apparent subsegmental emboli on the slices without motion. Aorta: Still no aortic aneurysm. No aortic dissection. Other arteries: Two right renal arteries again evident. Lungs: Continued presence of small calcified granulomas in each lung; possible interval development of the calcified granuloma in the anterior medial right upper lobe. Interval clearance of the dependent atelectasis from both posterior sulci. Pleural space: Unremarkable. No pneumothorax. No pleural effusion. Heart: Still no cardiomegaly. No pericardial effusion. Mediastinum: Mild mediastinal lipomatosis again evident. Liver: No current suggestion of hepatic steatosis. Lymph nodes: Continued calcified nodes in each hilum and the AP window. Interval increase appearance of enlarged mediastinal and bilateral hilar nodes. Bones/joints: Continued mild S-shaped scoliosis. Old compression fractures again evident. Continued degeneration of a few discs. Old left 10th rib fracture. Soft tissues: Small lipoma in the medial subcutaneous fat of the right upper back still suspected. CT/CT angio chest PE protcl [id number] IMPRESSION: 1. No apparent pulmonary embolus. 2. Interval mediastinal and bilateral hilar adenopathy. 3. Old granulomatous disease again evident. Other findings detailed above. Radiation Dose CTDIVOL = (mGy): DLP = 623.18 (mGy-cm)
[2019-11-21] MEDS: diphenhydrAMINE 50 mg/mL SDV 1mL IVP (03:56)
[2019-11-21] MEDS: hydrocortisone 100 mg/2 mL SDV IVP (04:00)
[2019-11-21] MEDS: iodixanol 320 mg/mL 100mL Btl IV (04:17)
[2019-11-21 04:38] LABS: Bacteria Urine TRACE; Bilirubin Urine Neg (NEGATIVE); Blood Urine Neg (Negative); Glucose Urine UA Norm (Normal); Ketones Urine Negative (Negative); Leukocyte Esterase Urine Negative (Negative); Nitrate Urine Negative (Negative); Protein Urine Neg (Negative); RBC Urine RARE /hpf (0-2); Squamous Epithelial Cell Urine RARE (0-5); Urine Appearance Clear (CLEAR); Urine Color Yellow (Yellow); Urobilinogen Urine Norm (Negative); WBC Urine RARE /hpf (0-5); pH Urine 7 (5-7)
--- NOTE | 2019-11-21 07:27 | PC.NURSE ---
Report received from PM shift nurse at this time. Blood transfusing at 75mL/hr at this time, patient is tolerating well. Will continue to monitor.
--- NOTE | 2019-11-21 07:27 | PC.NURSE ---
Blood transfusion rate increased to 150mL/hr at this time.
[2019-11-21] MEDS: sodium chloride 0.9% 500 ML 999 ML IV (08:30)
== END 2019-11-21 10:12 | disposition home or self-care (01) ==
PROVIDERS: Emergency Provider Emergency Medicine; Family Provider Family Medicine; PCP Family Medicine
DX: J40 Bronchitis, not specified as acute or chronic (principal); D64.9 Anemia, unspecified
CPT/HCPCS: 36430; 71046; 71275; 80053; 81001; 83880; 85025; 86140; 86850; 86900; 86920; 93005; 96360; 96374; 96375; 99283; 99284; J1200; J1720; J7040; P9016; Q9967

== ENCOUNTER 2019-12-02 08:15 | Outpatient (CLI) | payer MEDICAID, SELFPAY ==
--- NOTE | 2019-12-02 08:45 | US_ITS ---
WS: [id number] Gallbladder ultrasound, 12/02/2019 Clinical Data: abdominal pain Comparison: Gallbladder ultrasound, 05/13/2019. Findings: The gallbladder shows no sludge or stone. The wall measures 0.2 cm with no pericholecystic fluid. The common bile duct is 0.4 cm and there are no intrahepatic ductal abnormalities. Liver shows no cysts, masses or dilated intrahepatic ducts. The liver measures 14.90 cm and shows fat ty infiltration. The pancreas is obscured by overlying bowel gas but no cyst, pseudocyst, or evidence of pancreatitis is noted. Right kidney measures 4.83 x 5.57 x 12.3 cm and no cyst, masses or hydronephrosis can be seen. The aorta and inferior vena cava show no vascular abnormalities. US/US gall bladder [id number] Impression: Negative gallbladder.
== END 2019-12-02 08:16 | disposition home or self-care (01) ==
LOC: US 08:16
PROVIDERS: Family Provider Family Medicine; PCP Family Medicine; Visit Provider Surgery
DX: R10.9 Unspecified abdominal pain (principal)
CPT/HCPCS: 76705

== ENCOUNTER 2019-12-06 07:28 | Day surgery (SDC) | payer MEDICAID, SELFPAY ==
[2019-12-05 10:25] VITALS: BMI 37.0
--- NOTE | 2019-12-06 07:58 | W.PM.OPSUD ---
Surgery/Procedure H&P Update DATE OF PROCEDURE: December 06, 2019 DATE H&P PERFORMED: 11/15/19 H&P UPDATE INFORMATION: I have reviewed H&P completed within last 30 days, I have examined patient prior to procedure and No changes to prior documentation PREOP DIAGNOSIS: Anemia PLANNED PROCEDURE: Operation Date: 12/06/19 09:30 Proposed Procedures p EGD/COLON [id number] 21848 D64.9(Not Applicable) - Renny Gould MD s Colonoscopy(Not Applicable) - Renny Gould MD
[2019-12-06 08:14] VITALS: BP 148/83; PULSE 92; RESP 18; TEMP 36.9; O2SAT 97
[2019-12-06] MEDS: sodium chloride 0.9% 1,000 ML 30 ML IV (08:16)
[2019-12-06 08:23] LABS: Glucose Point of Care 156 mg/dL (70-110)
--- NOTE | 2019-12-06 08:54 | ANES.PREANE2 ---
Pre-Anesthetic Assessment Pre-Anesthetic Assessment: Height/Weight: Height 1.7 m Weight 107.501 kg Temp Pulse Resp BP Pulse Ox 98.4 F 92 18 148/83 97 12/06/19 08:14 12/06/19 08:14 12/06/19 08:14 12/06/19 08:14 12/06/19 08:14 Preop Diagnosis: Anemia Proposed Procedure: Operation Date: 12/06/19 09:30 Proposed Procedures p EGD/COLON [id number] 55706 D64.9(Not Applicable) - Renny Gould MD s Colonoscopy(Not Applicable) - Renny Gould MD Familial anesthetic complications: none Was Beta [place] taken within 24 hours: N/A Last intake: Intake Last Liquid Date 12/05/19 Last Liquid Time 21:00 Last Solid Date 12/04/19 Social: Social History: No alcohol and No tobacco Exam: Pre-Anes Outpt Exam: alert, oriented x 3, clear to auscultation bilaterally and regular rate & rhythm Airway: Submandibular: WNL Cervical ROM: Other (limited) MP: 1 Dentition: False History/ROS: No significant history except as noted Pulmonary: Pulmonary: COPD, Cough, Sleep apnea (CPAPA) and SOB Comments: inhaler as needed CV/HEM: CV/HEM: Angina (Stable), Arrythmia, CAD and HTN : : None reported Hepatic: Hepatic: Cirrohsis ( non drinking ) GI: GI: GERD (controlled) Metabolic: Metabolic: DM, Hyperlipidemia and Morbid obesity Musc/skel: Musc/skel: Lower Back Pain and OA/DJD Neuropsych: Neuropsych: Depression, HENDRICKSON and TIA ( 6-7months ago ) Anesthetic Plan: ASA status: 3 Anesthesia: MAC Risk of > 500 ml blood loss (7ml/kg in children): No Meds/Allergies Current Medications: Current Medications Generic Name Dose Route Start Last Admin Trade Name Freq PRN Reason Stop Dose Admin Sodium Chloride 1,000 mls @ 30 ml s/hr 12/06/19 08:00 12/06/19 08:16 Sodium Chloride 0.9% IV 12/07/19 07:59 30 mls/hr .Q24H PAULA Administration PFSH Anesthesia PFSH: Social History Smoking and tobacco status: never smoked Alcohol intake: former Lives independently: Yes Household members: spouse History of recent travel: No Data Anesthesia Other Labs: Laboratory Results - last 48 hr 12/06/19 08:12 POC Glucose 156 Cardiac Studies: Holter Monitor 11/05/19
[2019-12-06 10:24] VITALS: BP 154/78; PULSE 56; RESP 18; TEMP 36.6; O2SAT 96
--- NOTE | 2019-12-06 10:32 | ANE.PACU2 ---
 Inpatient post-anesthesia follow up: Airway intact: Yes Vital signs: Temperature 98.4 F Pulse Rate 92 Respiratory Rate 18 Blood Pressure 148/83 Pulse Oximetry 97 Oxygen Delivery Me thod Room Air Oxygen Flow Rate Fraction of Inspir ed Oxygen Hydration adequate: Yes Nausea and vomiting: No Pain level: 1 Mental status: Baseline
[2019-12-06 10:36] VITALS: BP 155/91; PULSE 92; RESP 16; TEMP 36.6; O2SAT 98
== END 2019-12-06 10:47 | disposition home or self-care (01) ==
PROVIDERS: Family Provider Family Medicine; PCP Family Medicine; Visit Provider Surgery
PROC: 0DJ08ZZ Inspection of Upper Intestinal Tract, Via Natural or Artificial Opening Endoscopic (ICD-10-PCS; CPT 43235; principal; 2019-12-06 09:30)
PROC: 0DJD8ZZ Inspection of Lower Intestinal Tract, Via Natural or Artificial Opening Endoscopic (ICD-10-PCS; CPT 45378; 2019-12-06 09:30)
DX: D50.9 Iron deficiency anemia, unspecified (principal); K29.70 Gastritis, unspecified, without bleeding; K64.8 Other hemorrhoids; J44.9 Chronic obstructive pulmonary disease, unspecified; G47.30 Sleep apnea, unspecified; I25.10 Atherosclerotic heart disease of native coronary artery without angina pectoris; I10 Essential (primary) hypertension; K21.9 Gastro-esophageal reflux disease without esophagitis; E11.9 Type 2 diabetes mellitus without complications; E66.01 Morbid (severe) obesity due to excess calories; Z68.37 Body mass index [BMI] 37.0-37.9, adult
CPT/HCPCS: 12345; 36416; 43239; 45384; 82962; 88305; J2704; J7030

== ENCOUNTER 2019-12-31 19:47 | Emergency (ER) | payer MEDICAID, SELFPAY ==
[2019-12-31 19:54] VITALS: BP 139/81; PULSE 103; RESP 16; TEMP 37.4; O2SAT 97; BMI 37.3
--- NOTE | 2019-12-31 20:55 | XRR_ITS ---
PROCEDURE INFORMATION: Exam: XR Ribs, Bilateral Exam date and time: 12/31/2019 8:56 PM Age: 54 years old Clinical indication: Other: Bilateral rib pain; Additional info: Cough, rib pain TECHNIQUE: Imaging protocol: XR of the bilateral ribs. Views: 3 views. COMPARISON: CR XR chest 2V* [id number] 11/21/2019 2:25 AM FINDINGS: Bones/joints: There appears to be a subtle fracture of the left anterior 8th rib visible on the oblique view only. Lungs: The lungs are clear. Pleural space: No pleural effusion or pneumothorax. Soft tissues: Normal. XR/XR ribs BI mn 4V w CXR1V [id number] IMPRESSION: Subtle probably recent fracture left anterior 8th rib
--- NOTE | 2019-12-31 21:42 | W.ED.GENADLT ---
HPI - General Adult General: Chief complaint: General Medical Stated complaint: rib pain Time Seen by Provider: 12/31/19 20:06 Source: patient Mode of arrival: ambulatory Limitations: no limitations History of Present Illness: HPI narrative: Patient is a 54-year-old gentleman who presents today with rib pain. The patient has been coughing for the last 2 days. He has had a rib fracture in the past that he says the pain he is feeling in his ribs is similar to that. He also states that 1 week ago he was seen at another emergency department with a lady who was coughing and was told that on the same day that the lady was there he was called and told that the lady tested positive for COVID-19. The patient states that her he was not in actual contact with the person that was diagnosed, however his girlfriend and his son were in contact with the person. He was out in his truck when the person who supposedly has the infection was in the other emergency department. He states he has a subjective fever. He has mild shortness of breath. He is here to be evaluated. MD complaint: cough, rib pain Onset (ago): day(s) (2) Location: chest Radiation: non-radiation Severity: severe Quality: sharp Pain Consistency: intermittent Relieving factors: none Exacerbating factors: other (cough) Associated symptoms: Reports chest pain, cough, fevers/chills and short of breath; Deny dyspnea, headache(s), nausea, rash, palpitations or vomiting Treatments prior to arrival: none Review of Systems General: Reports: 10 or more systems reviewed and unremarkable except in HPI and below Const: Denies: fever, chills or body aches Eyes: Denies: change in vision or blurry vision ENMT: Denies: throat pain, enlarged tonsils, painful swallowing, hoarseness, mouth pain or swelling of lips/tongue Card: Reports: chest pain; Denies: palpitations, irregular heart rhythm, edema or swelling of feet/ankles Resp: Denies: shortness of breath, productive cough or non-productive cough GI: Denies: abdominal pain, nausea or vomiting : Denies: flank pain, painful urination, urinary frequency, urinary urgency or urinary hesitancy Musc: Denies: neck pain, back pain or extremity swelling Skin/Breast: Denies: rash, itching or redness Neuro: Denies: headache, numbness in extremities or weakness in extremities Endo: Denies: excessive urination, excessive thirst or tired all the time PFSH ED PFSH: Social History Smoking and tobacco status: never smoked Alcohol intake: former Lives independently: Yes Household members: spouse History of recent travel: No Physical Exam Const: COMMON NORMALS: no apparent distress, average body habitus, oriented x3, no limitations, healthy appearing, alert and well nourished HENMT: COMMON NORMALS: normocephalic, head/scalp atraumatic and moist oral mucous membranes HEAD & SCALP: normocephalic and atraumatic Eye: COMMON NORMALS: PERRL, EOMs intact bilaterally, conjunctivae normal and no scleral icterus CONJUNCTIVA: Yes conjunctivae normal PUPIL: Yes PERRL Neck/C-Spine: COMMON NORMALS: full ROM, supple, no meningeal signs, no JVD and no carotid bruits Chest: COMMONS NORMALS: inspection of chest normal and palpation of chest normal Resp: COMMON NORMALS: normal respiratory effort, no retractions, no use of accessory muscles, clear to auscultation bilaterally and percussion normal AUSCULTATION: clear to auscultation bilaterally PERCUSSION: percussion normal Cardio: COMMON NORMALS: no JVD, regular rate, regular rhythm, S1 normal heart sound, S2 normal heart sound, no gallops, no clicks, no murmurs, no rub and peripheral pulses 2+ throughout RATE: regular rate RHYTHM: regular rhythm HEART SOUNDS: S1 normal and S2 normal PERIPHERAL PULSES: pulses 2+ throughout GI: COMMON NORMALS: normal to inspection, nondistended, normoactive bowel sounds, soft to palpation, non-tender, no hepatosplenomegaly, no masses and no bruits PALPATION: Yes soft and Yes no hepatosplenomegaly : COMMON NORMALS: Yes no CVA tenderness BLADDER/KIDNEY EXAM: Yes no CVA tenderness Back/Pelvis: COMMON NORMALS: no CVA tenderness Extremity: COMMON NORMALS: normal to inspection, full ROM, normal capillary refill, no calf tenderness and no pedal edema Neuro: COMMON NORMALS: oriented x3 SENSORIUM/ORIENTATION: Yes alert MENINGEAL SIGNS: Yes no meningeal signs Skin: COMMON NORMALS: no rashes or lesions noted, no wounds, skin turgor normal, no jaundice, no petechiae and no mottling GENERAL SKIN EXAM: no rashes or lesions noted and turgor normal Course Vital Signs: Vital signs: Vital Signs Temperature 99.3 F 12/31/19 19:54 Pulse Rate 103 H 12/31/19 19:54 Respiratory Rate 16 12/31/19 19:54 Blood Pressure 139/81 12/31/19 19:54 Pulse Oximetry 97 12/31/19 19:54 MDM - General Adult MDM Narrative: Medical decision making narrative: Patient who presents to the emergency department with rib pain secondary to cough. He also claims that he has been exposed to COVID-19 in the last week. The patient is not in any distress, vital signs are stable. He is not ill enough to be admitted to the hospital. He was swabbed for influenza and COVID-19. He has negative for influenza. He is therefore discharged home and advised to self quarantine for at least 14 days. He will be contacted with the results of the test Medical Records: Attestation: I reviewed the patient's medical records. Lab Data: Labs: Lab Results 12/31/19 Range/Units 21:00 Influenza Type A A g Negative (Negative) Influenza Type B A g Negative (Negative) Imaging Data^: Other Xray: Radiologist's impression: [address] [address] XRay Report Signed Patient: Nicko Obrien #: [id number] : 1965Acct#:[id number] Age/Sex: 54 / MADM Date: 12/31/19 [facility] Attending Dr: Ordering Provider/Ordering MD: Tino Josue MD, [facility] [place] of Service: 12/31/19 Procedure(s): XR ribs BI mn 4V w CXR1V [id number] Accession Number(s): [id number] Report Number: [id number] PROCEDURE INFORMATION: Exam: XR Ribs, Bilateral Exam date and time: 12/31/2019 8:56 PM Age: 54 years old Clinical indication: Other: Bilateral rib pain; Additional info: Cough, rib pain TECHNIQUE: Imaging protocol: XR of the bilateral ribs. Views: 3 views. COMPARISON: CR XR chest 2V* [id number] 11/21/2019 2:25 AM FINDINGS: Bones/joints: There appears to be a subtle fracture of the left anterior 8th rib visible on the oblique view only. Lungs: The lungs are clear. Pleural space: No pleural effusion or pneumothorax. Soft tissues: Normal. XR/XR ribs BI mn 4V w CXR1V [id number] IMPRESSION: Subtle probably recent fracture left anterior 8th rib Dictated By:Shellie Hayward MD Signed By:Shellie Haywardigned Date/Time:12/31/192130 DD/ 29 Discharge Plan Discharge Patient Disposition: Home, Self-Care Clinical Impression: Exposure to COVID-19 virus Closed rib fracture Qualifiers: Encounter type: initial encounter Rib fracture type: single rib Laterality: left Qualified Code(s): S22.32XA - Fracture of one rib, left side, initial encounter for closed fracture Condition: Stable Prescriptions: [place] 5-325 mg tablet 1 tab PO Q8H PRN (Reason: rib fracture) Qty: 14 RF: 0 Continued Humira Pen 40 mg/0.8 mL pen injector kit 40 mg SUBCUT ONCE RF: 0 pantoprazole 40 mg tablet,delayed release (DR/EC) 40 mg PO QDAY RF: 0 venlafaxine [Effexor XR] 150 mg capsule,extended release 24hr 150 mg PO QDAY RF: 0 aspirin [Adult Low Dose Aspirin] 81 mg tablet,delayed release (DR/EC) 81 mg PO QDAY RF: 0 metformin 500 mg tablet 500 mg PO BID RF: 0 lovastatin 20 mg tablet 20 mg PO QDAY RF: 0 tizanidine 4 mg capsule 4 mg PO TID PRN (Reason: Spasms) RF: 0 naproxen 500 mg tablet 500 mg PO BID RF: 0 amitriptyline 50 mg tablet 50 mg PO QDAY RF: 0 tramadol 50 mg tablet 50 mg PO BID PRN (Reason: Pain) RF: 0 glipizide 5 mg tablet 5 mg PO DAILY RF: 0 ferrous sulfate 325 mg (65 mg iron) tablet 325 mg PO BID RF: 0 isosorbide mononitrate 30 mg tablet extended release 24 hr 30 mg PO QDAY 30 Days Qty: 30 RF: 11 Coricidin HBP Chest Anthony-Cough 10-200 mg Capsule 1 tab-cap PO Q8H PRN (Reason: Congestion) RF: 0 Discharge Orders: Discharge Order (Routine); Ordered 12/31/19 Ordered By: Tino Josue Referrals: Luis Fernando Rhodes [Primary Care Provider] - 7-10 days Discharge Diet: Usual diet Discharge Activity: Increase activity as tolerated Patient Instructions: Rib Fracture (ED) Activity Restrictions/Additional Instructions: Return for any new or worsening symptoms. Follow-up with your primary care provider within 1 week. Take the pain medication as needed for severe pain and ibuprofen as needed for mild to moderate pain. Since it appears he went in place where you were exposed to COVID-19, you have been tested for this illness and you will be contacted with the results of the test. Until you are contacted you need to quarantine at home for at least 14 days. If however you feel worse, especially with shortness of breath then please return to the emergency department for evaluation. If you have any concerns please return for evaluation. Coding Level of Care Code ED Wire Coiler Machine Operator for Felipa Pérez
[2019-12-31 21:45] VITALS: BP 111/53; PULSE 66; RESP 16; O2SAT 97
[2019-12-31 21:48] LABS: Influenza A by IFA Negative (Negative); Influenza B by IFA Negative (Negative)
[2020-01-03 07:51] LABS: Coronavirus Overall Results NOT DETECTED
== END 2019-12-31 21:57 | disposition home or self-care (01) ==
PROVIDERS: Emergency Provider Family Medicine; Family Provider Family Medicine; PCP Family Medicine
DX: S22.32XA Fracture of one rib, left side, initial encounter for closed fracture (principal); X58.XXXA Exposure to other specified factors, initial encounter; Z20.828 Contact with and (suspected) exposure to other viral communicable diseases; I10 Essential (primary) hypertension; E11.9 Type 2 diabetes mellitus without complications; G45.9 Transient cerebral ischemic attack, unspecified
CPT/HCPCS: 12345; 71111; 87635; 87804; 99281; 99283

== ENCOUNTER 2020-01-04 23:16 | Emergency (ER) | payer MEDICAID, SELFPAY ==
[2020-01-04 23:17] VITALS: BP 156/90; PULSE 90; RESP 18; TEMP 37.4; O2SAT 95; BMI 36.6
--- NOTE | 2020-01-04 23:24 | ED_ITS ---
HPI - Chest Pain General: Chief Complaint: Chest Pain Stated Complaint: RIGHT RIB PAIN Time Seen by Provider: 01/04/20 23:17 Source: patient and EMS Mode of arrival: EMS Limitations: no limitations History of Present Illness: HPI narrative: 54-year-old male who was transferred here from [place] to have imaging to rule out pulmonary embolism. Patient had elevated d-dimer over there. Patient's troponins were negative. He states he had a cough for a month and a fever over the last 2 to 3 days. He states he had severe right-sided chest pain and has been told last week that he had a rib fracture. He states pain is much worse with his cough and with palpation. Associated symptoms: Reports fever(s); Deny abdominal pain, dyspnea, nausea or vomiting Review of Systems Const: Reports: fever; Denies: chills, body aches or change in appetite Eyes: Denies: blurry vision or eye discomfort ENMT: Denies: throat pain or dental pain Card: Reports: chest pain Resp: Reports: non-productive cough; Denies: shortness of breath GI: Denies: abdominal pain, nausea, vomiting or diarrhea : Denies: painful urination Musc: Denies: neck pain or back pain Skin/Breast: Denies: rash Neuro: Denies: headache Psych: Denies: depression Jayson/Lymph: Denies: easy bruising All/Imm: Denies: hives PFSH ED PFSH: Medical History COPD (chronic obstructive pulmonary disease) Depression Diabetes mellitus, type II Dyslipidemia Gastroesophageal reflux Hiatal hernia Hypertension Migraine Sleep apnea TIA (transient ischemic attack) Had several episodes , most recent one was in Aug. Has Migraine head ache Surgical History H/O esophagogastroduodenoscopy (~12/06/19) Gastritis H/O hernia repair History of carpal tunnel release Left Status post colonoscopy (~12/06/19) AVMs ascending colon Family History Other CAD (coronary artery disease) Cancer Denies family history of Anesthesia complication Bleeding disorder Social History Smoking and tobacco status: never smoked Alcohol intake: former Lives independently: Yes Household members: spouse History of recent travel: No Physical Exam Const: COMMON NORMALS: no apparent distress, oriented x3 and healthy appearing HENMT: COMMON NORMALS: normocephalic and head/scalp atraumatic HEAD & SCALP: normocephalic and atraumatic Eye: COMMON NORMALS: PERRL and EOMs intact bilaterally PUPIL: Yes PERRL Neck/C-Spine: COMMON NORMALS: full ROM and supple Chest: COMMONS NORMALS: inspection of chest normal OTHER: point tender over right chest Resp: COMMON NORMALS: normal respiratory effort, no retractions, no use of accessory muscles and clear to auscultation bilaterally AUSCULTATION: clear to auscultation bilaterally Cardio: COMMON NORMALS: regular rate, regular rhythm and no murmurs RATE: regular rate RHYTHM: regular rhythm GI: COMMON NORMALS: normal to inspection, nondistended, normoactive bowel sounds, soft to palpation, non-tender and no masses PALPATION: Yes soft Extremity: COMMON NORMALS: normal to inspection and full ROM Neuro: COMMON NORMALS: oriented x3, moves all extremities and no focal motor deficits Psych: COMMON NORMALS: mental status grossly normal, thought process normal and cooperative THOUGHT PROCESS: normal thought process Skin: COMMON NORMALS: no rashes or lesions noted and no wounds GENERAL SKIN EXAM: no rashes or lesions noted Course Vital Signs: Vital signs: Vital Signs Temperature 99.3 F 01/04/20 23:17 Pulse Rate 78 01/05/20 01:49 Respiratory Rate 18 01/05/20 01:49 Blood Pressure 156/90 01/05/20 01:40 Pulse Oximetry 100 01/05/20 01:49 MDM - Chest Pain MDM Narrative: Medical decision making narrative: Patient presents for chest pain that is likely muscular in nature. Patient is point tender on the right side of his chest. He is sent here on a PE and CT scan here is negative. Patient's lab work here is negative as well. He has no signs of pneumonia. Patient is stable for discharge and is to follow-up with his primary care doctor in 3 to 5 days and return if worsening. Lab Data: Labs: Lab Results 01/04/20 01/04/20 01/04/20 Range/Units 23:35 23:35 23:35 WBC 7.1 (4.0-10.0) 10^3/ uL RBC 5.28 (4.1-5.3) 10^6/u L Hgb 14.0 (11.7-16.6) g/dL Hct 43.8 (42.0-52.0) % MCV 83.0 (80-94) fL MCH 26.5 L (28.0-34.0) pg MCHC 32.0 (30.0-36.0) g/dL RDW 22.2 H (12.1-15.1) % Plt Count 239 (130-400) 10^3/c mm MPV 9.6 (7.4-10.4) fL Neut % (Auto) 68.8 % Lymph % (Auto) 19.9 % [place] % (Auto) 10.1 % Eos % (Auto) 0.6 % Baso % (Auto) 0.3 % Neut # (Auto) 4.9 (1.8-7.7) 10^3/u L Lymph # (Auto) 1.4 (0.8-4.8) 10^3/u L [place] # (Auto) 0.7 (0.2-0.9) 10^3/u L Eos # (Auto) 0.0 (0.0-0.8) 10^3/u L Baso # (Auto) 0.0 (0.0-0.1) 10^3/u L Nucleated RBC % (a uto) 0 % Nucleated RBCs # 0.0 /100WBC Sodium 134 L (136-145) mmol/L Potassium 4.3 (3.5-5.1) mmol/L Chloride 98 (98-107) mmol/L Carbon Dioxide 24 (22-29) mmol/L Anion Gap 16.3 (5-19) BUN 6 (6-20) mg/dL Creatinine 0.7 (0.7-1.2) mg/dL GFR Calculation 118.0 (90-130) mL/min Glucose 111 (65-115) mg/dL Calculated Osmolal ity 274 L (285-295) mOsm/k g Lactate 1.1 (0.5-2.2) mmol/L Calcium 9.4 (8.5-10.5) mg/dL Imaging Data^: CT Chest: Attestation: I personally reviewed and interpreted this imaging study as follows: Radiologist's impression: [address] [address] [address] Scan Report Signed Patient: Nicko Obrien Unit #: [id number] : 1965 Age/Sex: 54 / M ADM Date: 01/04/20 Loc: ER Room/Bed: Attending Dr: Ordering Provider/Ordering MD: Darcy Ochoa MD Date of Service: 01/04/20 Procedure(s): CT angio chest PE protcl [id number] Accession Number(s): [id number] Report Number: [id number] PROCEDURE INFORMATION: Exam: CT Angiography Chest With Contrast Exam date and time: 01/04/2020 11:46 PM Age: 54 years old Clinical indication: Chest pain; Type not specified; Patient HX: HX rib FX 4 days ago; Additional info: Pe TECHNIQUE: Imaging protocol: Computed tomographic angiography of the chest with intravenous contrast. 3D rendering: MIP and/or 3D reconstructed images were created by the technologist. Total DLP: 624.32 mGy-cm Radiation optimization: All CT scans at this facility use at least one of these dose optimization techniques: automated exposure control; mA and/or kV adjustment per patient size (includes targeted exams where dose is matched to clinical indication); or iterative reconstruction. Contrast material: OMNI 350; Contrast volume: 80 ml; Contrast route: 20G; COMPARISON: CT angio chest PE protcl [id number] 11/21/2019 4:31 AM FINDINGS: Pulmonary arteries: No visible pulmonary embolism/pulmonary arterial thrombus. Aorta: Unremarkable. No aortic aneurysm. No aortic dissection. Lungs: Rare calcified granuloma of antecedent granulomatous disease of the lung parenchyma. No active interstitial or alveolar airspace disease. Pleural space: Unremarkable. No pneumothorax. No pleural effusion. Heart: Unremarkable. No cardiomegaly. No pericardial effusion. Lymph nodes: Again note of moderately prominent middle mediastinal and hilar lymph nodes some with evidence of calcification consistent with antecedent granulomatous disease/antecedent histoplasmosis. No visible significant overall change since 11/21/2019. Bones/joints: Scoliosis. No visible rib fracture. Soft tissues: Unremarkable. CT/CT angio chest PE protcl [id number] IMPRESSION: No visible pulmonary embolism. EKG Data^: EKG 1: Attestation: I personally reviewed and interpreted this EKG as follows: EKG interpretation date: 01/05/20 EKG interpretation time: 01:32 Interpretation: nsr hr [address] or t wave abnormalities qrs 89 qtc 431 Discharge Plan Discharge Patient Disposition: Home, Self-Care Clinical Impression: Chest wall pain Condition: Stable Prescriptions: [place] 5-325 mg tablet 1 tab PO Q6H PRN (Reason: pain) Qty: 14 RF: 0 No Action Humira Pen 40 mg/0.8 mL pen injector kit 40 mg SUBCUT ONCE RF: 0 pantoprazole 40 mg tablet,delayed release (DR/EC) 40 mg PO QDAY RF: 0 venlafaxine [Effexor XR] 150 mg capsule,extended release 24hr 150 mg PO QDAY RF: 0 aspirin [Adult Low Dose Aspirin] 81 mg tablet,delayed release (DR/EC) 81 mg PO QDAY RF: 0 metformin 500 mg tablet 500 mg PO BID RF: 0 lovastatin 20 mg tablet 20 mg PO QDAY RF: 0 tizanidine 4 mg capsule 4 mg PO TID PRN (Reason: Spasms) RF: 0 naproxen 500 mg tablet 500 mg PO BID RF: 0 amitriptyline 50 mg tablet 50 mg PO QDAY RF: 0 tramadol 50 mg tablet 50 mg PO BID PRN (Reason: Pain) RF: 0 glipizide 5 mg tablet 5 mg PO DAILY RF: 0 ferrous sulfate 325 mg (65 mg iron) tablet 325 mg PO BID RF: 0 isosorbide mononitrate 30 mg tablet extended release 24 hr 30 mg PO QDAY 30 Days Qty: 30 RF: 11 Coricidin HBP Chest Anthony-Cough 10-200 mg Capsule 1 tab-cap PO Q8H PRN (Reason: Congestion) RF: 0 [place] 5-325 mg tablet 1 tab PO Q8H PRN (Reason: rib fracture) Qty: 14 RF: 0 Discharge Orders: Discharge Order (Routine); Ordered 01/05/20 Ordered By: Darcy Ochoa Referrals: Luis Fernando Rhodes [Primary Care Provider] - 4-7 days Discharge Diet: Advance as tolerated Discharge Activity: Resume usual activity Patient Instructions: Chest Pain (ED), Thoracic Pain (ED) Discharge Date/Time: 01/05/20 01:55 Coding Level of Care Code ED Artillery Specialist for Chg Fwd Exam Comprehensive
[2020-01-04 23:29] VITALS: BP 156/90; PULSE 86; RESP 18; O2SAT 96
[2020-01-04] MEDS: acetaminophen 500 mg Tablet 1000 MG PO (23:40)
[2020-01-04] MEDS: sodium chloride 0.9% 1,000 ML 999 ML IV (23:42)
[2020-01-04 23:44] VITALS: RESP 18; O2SAT 96
[2020-01-04] MEDS: morphine 4 mg/mL SDV 1 mL IVP (23:44)
[2020-01-04 23:50] LABS: Basophils % 0.3 %; Eosinophils % 0.6 %; Hematocrit 43.8 % (42.0-52.0); Lymphocytes # 1.4 10^3/uL (0.8-4.8); Lymphocytes % 19.9 %; Mean Corpuscular Hemoglobin 26.5 pg (28.0-34.0); Mean Platelet Volume 9.6 fL (7.4-10.4); Monocytes # 0.7 10^3/uL (0.2-0.9); Monocytes % 10.1 %; Neutrophils # 4.9 10^3/uL (1.8-7.7); Neutrophils % 68.8 %; Nucleated Red Blood Cells % 0 %; Platelet Count 239 10^3/cmm (130-400); Red Blood Count 5.28 10^6/uL (4.1-5.3); Red Cell Distribution Width 22.2 % (12.1-15.1); White Blood Count 7.1 10^3/uL (4.0-10.0)
[2020-01-04 23:55] LABS: Anion Gap 16.3 (5-19); Blood Urea Nitrogen 6 mg/dL (6-20); Calcium 9.4 mg/dL (8.5-10.5); Carbon Dioxide 24 mmol/L (22-29); Chloride 98 mmol/L (98-107); Glucose 111 mg/dL (65-115); Lactate (Lactic Acid level) 1.1 mmol/L (0.5-2.2); Osmolality Calculated 274 mOsm/kg (285-295); Potassium 4.3 mmol/L (3.5-5.1); Sodium 134 mmol/L (136-145)
[2020-01-05] VITALS (10 sets, daily range): BP systolic 156; BP diastolic 90; PULSE 78; RESP 18; O2SAT 95–100
[2020-01-05] MEDS: diphenhydrAMINE 50 mg/mL SDV 1mL IVP (00:26)
[2020-01-05] MEDS: hydrocortisone 100 mg/2 mL SDV IVP (00:28)
--- NOTE | 2020-01-05 00:31 | PC.NURSE ---
Pt. pre medicated. To CT scan via stretcher, with tech
[2020-01-05] MEDS: iohexol 350 mg/mL 100 mL Btl IV (00:46)
== END 2020-01-05 01:55 | disposition home or self-care (01) ==
PROVIDERS: Emergency Provider Emergency Medicine; Family Provider Family Medicine; PCP Family Medicine
DX: R07.89 Other chest pain (principal); J44.9 Chronic obstructive pulmonary disease, unspecified; F32.9 Major depressive disorder, single episode, unspecified; E11.9 Type 2 diabetes mellitus without complications; E78.5 Hyperlipidemia, unspecified; K21.9 Gastro-esophageal reflux disease without esophagitis; I10 Essential (primary) hypertension; G47.30 Sleep apnea, unspecified; Z86.73 Personal history of transient ischemic attack (TIA), and cerebral infarction without residual deficits; Z82.49 Family history of ischemic heart disease and other diseases of the circulatory system; Z79.4 Long term (current) use of insulin; Z79.82 Long term (current) use of aspirin
CPT/HCPCS: 12345; 36415; 71275; 80048; 83605; 85025; 96375; 99283; J1200; J1720; J2270; J7030; Q9967

== ENCOUNTER 2020-01-19 19:14 | Emergency (ER) | payer MEDICAID, SELFPAY ==
[2020-01-19 19:20] VITALS: BP 124/81; PULSE 101; RESP 16; TEMP 36.8; O2SAT 97; BMI 37.4
--- NOTE | 2020-01-19 19:27 | ED_ITS ---
HPI - Abdominal Pain General: Chief Complaint: Abdominal Pain Stated Complaint: lower abd pain Time Seen by Provider: 01/19/20 19:26 History of Present Illness: HPI narrative: Pt states about 2 hours ago he tarted having low abd pain, it travels to his right side. He has had chronic right side pain for a while and he has a HIDA scan scheduled next thursday. This pain that started today is different. He started having dry heaves with the pain, he has had dififculty urinating and controlling his bladder for the past 4 days. no fever MD elicited complaint: abdominal pain and flank pain Onset (ago): day(s) Pain Consistency: intermittent Location: RLQ and LLQ Severity: moderate Quality: cramping and stabbing Radiation: LUQ Migration to: no migration Exacerbating factors: eating and movement Relieving factors: nothing Associated Symptoms: Reports anorexia, nausea and vomiting; Denies fever(s) Review of Systems General: Reports: 10 or more systems reviewed and unremarkable except in HPI and below Const: Denies: fever ENMT: Denies: throat pain Card: Denies: chest pain or swelling of feet/ankles Resp: Denies: shortness of breath or productive cough GI: Reports: abdominal pain, nausea and vomiting : Reports: flank pain, urinary frequency, urinary urgency and urinary incontinence Musc: Denies: back pain or extremity swelling Skin/Breast: Denies: rash Neuro: Denies: headache, numbness in extremities or weakness in extremities PFS ED PFSH: Medical History COPD (chronic obstructive pulmonary disease) Depression Diabetes mellitus, type II Dyslipidemia Gastroesophageal reflux Hiatal hernia Hypertension Migraine Sleep apnea TIA (transient ischemic attack) Had several episodes , most recent one was in Aug. Has Migraine h ead ache Surgical History H/O esophagogastroduodenoscopy (~12/06/19) Gastritis H/O hernia repair History of carpal tunnel release Left Status post colonoscopy (~12/06/19) AVMs ascending colon Family History Other CAD (coronary artery disease) Cancer Denies family history of Anesthesia complication Bleeding disorder Social History Smoking and tobacco status: never smoked Alcohol intake: former Lives independently: Yes Household members: spouse History of recent travel: No Physical Exam Const: COMMON NORMALS: no apparent distress and oriented x3 GENERAL APPEARANCE: cooperative; not in distress HENMT: COMMON NORMALS: normocephalic HEAD & SCALP: normal to inspection and normocephalic MOUTH: oral and palatal mucosa normal and lip normal Neck/C-Spine: COMMON NORMALS: full ROM, no lymphadenopathy, supple and no meningeal signs GENERAL: Yes normal visual inspection and Yes trachea midline Chest: COMMONS NORMALS: inspection of chest normal Resp: COMMON NORMALS: normal respiratory effort and clear to auscultation bilaterally EFFORT & INSPECTION: Yes able to speak in complete sentences and No respiratory distress AUSCULTATION: clear to auscultation bilaterally, no rales, no rhonchi and no wheezes Cardio: COMMON NORMALS: regular rate, regular rhythm, S1 normal heart sound, S2 normal heart sound and no murmurs RATE: regular rate RHYTHM: regular rhythm HEART SOUNDS: S1 normal and S2 normal PERIPHERAL PULSES: radial pulses present and dorsalis pedis pulses present GI: COMMON NORMALS: soft to palpation AUSCULTATION: Yes normoactive bowel sounds PALPATION: Yes soft and Yes tender Details: LLQ, RLQ and other (suprapubic) RECTAL EXAM: Yes deferred : COMMON NORMALS: Yes no CVA tenderness BLADDER/KIDNEY EXAM: Yes no CVA tenderness Back/Pelvis: COMMON NORMALS: no CVA tenderness Extremity: COMMON NORMALS: normal to inspection, full ROM, normal capillary refill, no calf tenderness and no pedal edema Neuro: COMMON NORMALS: oriented x3, CN's II-XII intact bilaterally, moves all extremities and no focal motor deficits MENINGEAL SIGNS: Yes no meningeal signs Skin: COMMON NORMALS: no rashes or lesions noted GENERAL SKIN EXAM: no rashes or lesions noted Course Vital Signs: Vital signs: Vital Signs Temperature 98.2 F 01/19/20 19:20 Pulse Rate 92 01/19/20 21:54 Respiratory Rate 16 01/19/20 21:54 Blood Pressure 131/85 01/19/20 21:54 Pulse Oximetry 99 01/19/20 21:54 MDM - Abdominal Pain MDM Narrative: Medical decision making narrative: Pt is allergic to iv constrast but has had it after being pretreated before so I will give him hydrocortisone and benadryl 2100: pts ct is unremarkable, no uti either. I qill try a po challenge on him and have him f/u with general surgery as scheduled. He has a HIDA scan scheduled for next week. he will need to stick with a clear liquid diet and advance as tolerated. He is likely urinating more due to his elevated sugars. pain is gone Lab Data: Attestation: I reviewed the patient's lab results. Labs: Lab Results 01/19/20 01/19/20 01/19/20 Range/Units 20:05 20:13 20:13 WBC 9.0 (4.0-10.0) 10^3/ uL RBC 5.80 H (4.1-5.3) 10^6/u L Hgb 15.6 (11.7-16.6) g/dL Hct 48.7 (42.0-52.0) % MCV 84.0 (80-94) fL MCH 26.9 L (28.0-34.0) pg MCHC 32.0 (30.0-36.0) g/dL RDW 20.4 H (12.1-15.1) % Plt Count 180 (130-400) 10^3/c mm MPV 9.8 (7.4-10.4) fL Neut % (Auto) 72.2 % Lymph % (Auto) 18.7 % Hardy % (Auto) 7.1 % Eos % (Auto) 1.4 % Baso % (Auto) 0.3 % Neut # (Auto) 6.5 (1.8-7.7) 10^3/u L Lymph # (Auto) 1.7 (0.8-4.8) 10^3/u L Hardy # (Auto) 0.6 (0.2-0.9) 10^3/u L Eos # (Auto) 0.1 (0.0-0.8) 10^3/u L Baso # (Auto) 0.0 (0.0-0.1) 10^3/u L Nucleated RBC % (a uto) 0 % Nucleated RBCs # 0.0 /100WBC Sodium 137 (136-145) mmol/L Potassium 3.7 (3.5-5.1) mmol/L Chloride 98 (98-107) mmol/L Carbon Dioxide 28 (22-29) mmol/L Anion Gap 14.7 (5-19) BUN 9 (6-20) mg/dL Creatinine 0.8 (0.7-1.2) mg/dL GFR Calculation 101.1 (90-130) mL/min Glucose 198 H (65-115) mg/dL Calculated Osmolal ity 286 (285-295) mOsm/k g Lactate (0.5-2.2) mmol/L Calcium 9.9 (8.5-10.5) mg/dL Total Bilirubin 0.4 (0.15-1.2) mg/dL AST 61 H (0-40) U/L ALT 91 H (0-41) U/L Alkaline Phosphata se 146 H (40-130) IU/L Total Protein 7.7 (6.6-8.7) g/dL Albumin 4.4 (3.5-5.2) g/dL Globulin 3.3 (1.3-4.6) g/dL Urine Color Yellow (Yellow) Urine Appearance Clear (CLEAR) Urine pH 6 (5-7) Ur Specific Gravit y 1.020 (1.005-1.030) Urine Protein Neg (Negative) Urine Glucose (UA) Norm (Normal) Urine Ketones Negative (Negative) Urine Blood Neg (Negative) Urine Nitrate Negative (Negative) Urine Bilirubin Neg (NEGATIVE) Urine Urobilinogen Norm (Negative) mg/dL Ur Leukocyte Jessica ase Negative (Negative) 01/19/20 Range/Units 20:16 WBC (4.0-10.0) 10^3/ uL RBC (4.1-5.3) 10^6/u L Hgb (11.7-16.6) g/dL Hct (42.0-52.0) % MCV (80-94) fL MCH (28.0-34.0) pg MCHC (30.0-36.0) g/dL RDW (12.1-15.1) % Plt Count (130-400) 10^3/c mm MPV (7.4-10.4) fL Neut % (Auto) % Lymph % (Auto) % Hardy % (Auto) % Eos % (Auto) % Baso % (Auto) % Neut # (Auto) (1.8-7.7) 10^3/u L Lymph # (Auto) (0.8-4.8) 10^3/u L Hardy # (Auto) (0.2-0.9) 10^3/u L Eos # (Auto) (0.0-0.8) 10^3/u L Baso # (Auto) (0.0-0.1) 10^3/u L Nucleated RBC % (a uto) % Nucleated RBCs # /100WBC Sodium (136-145) mmol/L Potassium (3.5-5.1) mmol/L Chloride (98-107) mmol/L Carbon Dioxide (22-29) mmol/L Anion Gap (5-19) BUN (6-20) mg/dL Creatinine (0.7-1.2) mg/dL GFR Calculation (90-130) mL/min Glucose (65-115) mg/dL Calculated Osmolal ity (285-295) mOsm/k g Lactate 1.8 (0.5-2.2) mmol/L Calcium (8.5-10.5) mg/dL Total Bilirubin (0.15-1.2) mg/dL AST (0-40) U/L ALT (0-41) U/L Alkaline Phosphata se (40-130) IU/L Total Protein (6.6-8.7) g/dL Albumin (3.5-5.2) g/dL Globulin (1.3-4.6) g/dL Urine Color (Yellow) Urine Appearance (CLEAR) Urine pH (5-7) Ur Specific Gravit y (1.005-1.030) Urine Protein (Negative) Urine Glucose (UA) (Normal) Urine Ketones (Negative) Urine Blood (Negative) Urine Nitrate (Negative) Urine Bilirubin (NEGATIVE) Urine Urobilinogen (Negative) mg/dL Ur Leukocyte Jessica ase (Negative) Imaging Data ^: CT Abd/Pel: Radiologist's impression: [address] [place] [address] CT Scan Report Signed Patient: Nicko Obrien #: [id number] : 1965Acct#:[id number] Age/Sex: 54 / MADM Date: 01/19/20 Loc: ERRoom/Bed: Attending Dr: Ordering Provider/Ordering MD: Cyndie Scott DO Date of Service: 01/19/20 Procedure(s): CT abdomen pelvis w con* [id number] Accession Number(s): [id number] Report Number: [id number] PROCEDURE INFORMATION: Exam: CT Abdomen And Pelvis With Contrast Exam date and time: 01/19/2020 7:49 PM Age: 54 years old Clinical indication: Abdominal pain; Generalized; Prior surgery; Surgery type: Hernia; Additional info: Abd pain TECHNIQUE: Imaging protocol: Computed tomography of the abdomen and pelvis with intravenous contrast. Radiation optimization: All CT scans at this facility use at least one of these dose optimization techniques: automated exposure control; mA and/or kV adjustment per patient size (includes targeted exams where dose is matched to clinical indication); or iterative reconstruction. Contrast material: VISI 320; Contrast volume: 95 ml; Contrast route: IV; COMPARISON: CT abdomen pelvis w con* [id number] 06/07/2019 12:53 AM RADIATION DOSE METRICS: Total DLP: 1800.84 mGy-cm FINDINGS: Lungs: Limited assessment lung bases without visible evidence of active cardiopulmonary process. Liver: Mild diffuse fatty infiltration liver. Stable tiny left hepatic lobe cyst. Gallbladder and bile ducts: Normal. No calcified stones. No ductal dilation. Pancreas: Normal. No ductal dilation. Spleen: Mild splenomegaly at 15.5 cm. Adrenals: Normal. No mass. Kidneys and ureters: Stable small renal cortical cyst inferior pole right kidney. Stomach and bowel: Minimal diverticulosis coli without evidence for diverticulitis. Nonobstructive bowel pattern. No evidence for adynamic or reactive ileus. Appendix: No evidence of appendicitis. Intraperitoneal space: Unremarkable. No free air. No significant fluid collection. Vasculature: The abdominal aorta is nonaneurysmal. Minimal arterial sclerotic disease. Lymph nodes: Unremarkable. No enlarged lymph nodes. Bladder: Unremarkable as visualized. Reproductive: Unremarkable as visualized. Bones/joints: Mild scoliosis. No visible acute osseous abnormality. Soft tissues: Bilateral small inguinal hernias containing fat only. CT/CT abdomen pelvis w con* [id number] IMPRESSION: 1. Currently no visible evidence of active or acute abdominal or pelvic pathologic process. 2. Splenomegaly. Radiation Dose CTDIVOL = (mGy): DLP = 1800.84 (mGy-cm) Dictated By:Johan Briggs Signed By:Johan BriggsSignasael Date/Time:01/19/202100 Discharge Plan Discharge Patient Disposition: Home, Self-Care Clinical Impression: Abdominal pain in male, Elevated transaminase level Diabetes mellitus, type II Qualifiers: Diabetes mellitus [facility] insulin use: without long term care phlebotomist use Diabetes mellitus complication status: without complication Qualified Code(s): E11.9 - Type 2 diabetes mellitus without complications Condition: Stable Prescriptions: New dicyclomine 10 mg capsule 10 mg PO TID Qty: 20 RF: 0 No Action Humira Pen 40 mg/0.8 mL pen injector kit 40 mg SUBCUT ONCE RF: 0 pantoprazole 40 mg tablet,delayed release (DR/EC) 40 mg PO DAILY RF: 0 venlafaxine [Effexor XR] 150 mg capsule,extended release 24hr 150 mg PO QDAY RF: 0 aspirin [Adult Low Dose Aspirin] 81 mg tablet,delayed release (DR/EC) 81 mg PO DAILY RF: 0 metformin 500 mg tablet 500 mg PO BID RF: 0 lovastatin 20 mg tablet 20 mg PO DAILY RF: 0 tizanidine 4 mg capsule 4 mg PO TID PRN (Reason: Spasms) RF: 0 amitriptyline 50 mg tablet 50 mg PO DAILY RF: 0 tramadol 50 mg tablet 50 mg PO BID PRN (Reason: Pain) RF: 0 glipizide 5 mg tablet 5 mg PO DAILY RF: 0 ferrous sulfate 325 mg (65 mg iron) tablet 325 mg PO BID RF: 0 losartan 50 mg tablet 50 mg PO DAILY RF: 0 Pain Relief 650 mg Tablet Extended Release 650 mg PO Q12H PRN (Reason: Pain) RF: 0 isosorbide mononitrate 30 mg tablet extended release 24 hr 30 mg PO DAILY RF: 0 Discharge Orders: Discharge Order (Routine); Ordered 01/19/20 Ordered By: Cyndie Scott Referrals: Renny Gould MD [Physician] - 4-7 days Luis Fernando Rhodes [Primary Care Provider] - 1-3 days Discharge Diet: Advance as tolerated and Clear Liquid Discharge Activity: Resume usual activity Patient Instructions: Abdominal Pain (ED) Activity Restrictions/Additional Instructions: f/u with Scheduled HIDA scan, return if worse, any problem, any change, check your sugars carefully and maintain a diabetic diet Discharge Date/Time: 01/19/20 22:07 Coding Level of Care Code ED Supervisor Statement Clerks for Chg Fwd Exam Comprehensive
--- NOTE | 2020-01-19 19:44 | CTR_ITS ---
PROCEDURE INFORMATION: Exam: CT Abdomen And Pelvis With Contrast Exam date and time: 01/19/2020 7:49 PM Age: 54 years old Clinical indication: Abdominal pain; Generalized; Prior surgery; Surgery type: Hernia; Additional info: Abd pain TECHNIQUE: Imaging protocol: Computed tomography of the abdomen and pelvis with intravenous contrast. Radiation optimization: All CT scans at this facility use at least one of these dose optimization techniques: automated exposure control; mA and/or kV adjustment per patient size (includes targeted exams where dose is matched to clinical indication); or iterative reconstruction. Contrast material: VISI 320; Contrast volume: 95 ml; Contrast route: IV; COMPARISON: CT abdomen pelvis w con* [id number] 06/07/2019 12:53 AM RADIATION DOSE METRICS: Total DLP: 1800.84 mGy-cm FINDINGS: Lungs: Limited assessment lung bases without visible evidence of active cardiopulmonary process. Liver: Mild diffuse fatty infiltration liver. Stable tiny left hepatic lobe cyst. Gallbladder and bile ducts: Normal. No calcified stones. No ductal dilation. Pancreas: Normal. No ductal dilation. Spleen: Mild splenomegaly at 15.5 cm. Adrenals: Normal. No mass. Kidneys and ureters: Stable small renal cortical cyst inferior pole right kidney. Stomach and bowel: Minimal diverticulosis coli without evidence for diverticulitis. Nonobstructive bowel pattern. No evidence for adynamic or reactive ileus. Appendix: No evidence of appendicitis. Intraperitoneal space: Unremarkable. No free air. No significant fluid collection. Vasculature: The abdominal aorta is nonaneurysmal. Minimal arterial sclerotic disease. Lymph nodes: Unremarkable. No enlarged lymph nodes. Bladder: Unremarkable as visualized. Reproductive: Unremarkable as visualized. Bones/joints: Mild scoliosis. No visible acute osseous abnormality. Soft tissues: Bilateral small inguinal hernias containing fat only. CT/CT abdomen pelvis w con* [id number] IMPRESSION: 1. Currently no visible evidence of active or acute abdominal or pelvic pathologic process. 2. Splenomegaly. Radiation Dose CTDIVOL = (mGy): DLP = 1800.84 (mGy-cm)
[2020-01-19] MEDS: hydrocortisone 100 mg/2 mL SDV IVP (20:12)
[2020-01-19] MEDS: diphenhydrAMINE 50 mg/mL SDV 1mL IVP (20:15)
[2020-01-19] MEDS: sodium chloride 0.9% 1,000 ML 999 ML IV (20:20)
[2020-01-19] MEDS: ondansetron 2 mg/ML SDV 2 mL 4 MG IVP (20:20)
[2020-01-19 20:25] VITALS: RESP 16
[2020-01-19] MEDS: morphine 4 mg/mL SDV 1 mL IVP (20:25)
[2020-01-19] MEDS: iodixanol 320 mg/mL 100mL Btl IV (20:27)
[2020-01-19 20:35] LABS: Basophils % 0.3 %; Eosinophils # 0.1 10^3/uL (0.0-0.8); Eosinophils % 1.4 %; Hematocrit 48.7 % (42.0-52.0); Hemoglobin 15.6 g/dL (11.7-16.6); Lymphocytes # 1.7 10^3/uL (0.8-4.8); Lymphocytes % 18.7 %; Mean Corpuscular Hemoglobin 26.9 pg (28.0-34.0); Mean Platelet Volume 9.8 fL (7.4-10.4); Monocytes # 0.6 10^3/uL (0.2-0.9); Monocytes % 7.1 %; Neutrophils # 6.5 10^3/uL (1.8-7.7); Neutrophils % 72.2 %; Nucleated Red Blood Cells % 0 %; Platelet Count 180 10^3/cmm (130-400); Red Cell Distribution Width 20.4 % (12.1-15.1)
[2020-01-19 20:36] LABS: Add Urine Microscopic? NO
[2020-01-19 20:41] LABS: Bilirubin Urine Neg (NEGATIVE); Blood Urine Neg (Negative); Glucose Urine UA Norm (Normal); Ketones Urine Negative (Negative); Leukocyte Esterase Urine Negative (Negative); Nitrate Urine Negative (Negative); Protein Urine Neg (Negative); Urine Appearance Clear (CLEAR); Urine Color Yellow (Yellow); Urobilinogen Urine Norm (Negative); pH Urine 6 (5-7)
[2020-01-19 20:49] LABS: Lactate (Lactic Acid level) 1.8 mmol/L (0.5-2.2)
[2020-01-19 20:50] LABS: Alanine Aminotransferase 91 U/L (0-41); Albumin Level 4.4 g/dL (3.5-5.2); Alkaline Phosphatase 146 IU/L (40-130); Anion Gap 14.7 (5-19); Aspartate Amino Transferase 61 U/L (0-40); Blood Urea Nitrogen 9 mg/dL (6-20); Calcium 9.9 mg/dL (8.5-10.5); Carbon Dioxide 28 mmol/L (22-29); Chloride 98 mmol/L (98-107); Globulin 3.3 g/dL (1.3-4.6); Glomerular Filtration Rate 101.1 mL/min (90-130); Glucose 198 mg/dL (65-115); Osmolality Calculated 286 mOsm/kg (285-295); Potassium 3.7 mmol/L (3.5-5.1); Sodium 137 mmol/L (136-145); Total Bilirubin 0.4 mg/dL (0.15-1.2); Total Protein 7.7 g/dL (6.6-8.7)
[2020-01-19 21:54] VITALS: BP 131/85; PULSE 92; RESP 16; O2SAT 99
--- NOTE | 2020-01-20 10:44 | DCPLANNER ---
talent program manager had message to schedule a follow up appointment for patient with general surgery. talent program manager called [facility], spoke with Rocio, gave clinic patients information. talent program manager was told that patients information would be printed and given to Lola to schedule. Clinic will call patient with appointment information.
--- NOTE | 2020-01-26 13:49 | DCPLANNER ---
Patient has a follow up appointment scheduled for Monday, January 27, 2020 at 11:[address] Gould. Clinic will call patient with appointment information.
--- NOTE | 2020-01-31 14:06 | DCPLANNER ---
Patient did attend appointment scheduled for 01.27.20 with [facility].
== END 2020-01-19 22:07 | disposition home or self-care (01) ==
PROVIDERS: Emergency Provider Emergency Medicine; Family Provider Family Medicine; PCP Family Medicine
DX: R10.9 Unspecified abdominal pain (principal); R74.0 Nonspecific elevation of levels of transaminase and lactic acid dehydrogenase [LDH]; E11.9 Type 2 diabetes mellitus without complications; Z79.4 Long term (current) use of insulin; Z79.82 Long term (current) use of aspirin; J44.9 Chronic obstructive pulmonary disease, unspecified; E78.5 Hyperlipidemia, unspecified; I10 Essential (primary) hypertension; Z86.73 Personal history of transient ischemic attack (TIA), and cerebral infarction without residual deficits; K21.9 Gastro-esophageal reflux disease without esophagitis
CPT/HCPCS: 12345; 74177; 80053; 81003; 83605; 85025; 96361; 96374; 96375; 99282; 99284; J1200; J1720; J2270; J2405; J7030; Q9967

== ENCOUNTER 2020-01-25 06:54 | Outpatient (CLI) | payer MEDICAID, SELFPAY ==
--- NOTE | 2020-01-25 08:00 | NM_ITS ---
WS: [id number] NM hepatobiliary w phar* [id number] REASON FOR EXAM: Abdominal Pain TECHNICAL: 8.1 mCi reason labeled technetium 99m mebrofenin And was given 8 ounces of ensure to stimu late gallbladder. FINDINGS: The gallbladder appeared promptly at approximately 15 minutes appeared to be well concentra prema at 60 minutes was given 8 ounces ensure plus. The ejection fraction is 73%. NM/NM hepatobiliary w phar* [id number] IMPRESSION: Normal appearance of the gallbladder with normal ejection fraction.
== END 2020-01-25 06:55 | disposition home or self-care (01) ==
LOC: RAD 06:58
PROVIDERS: Family Provider Family Medicine; PCP Family Medicine; Visit Provider Surgery
DX: R10.9 Unspecified abdominal pain (principal)
CPT/HCPCS: 78227; A9537

== ENCOUNTER 2020-08-08 09:59 | Outpatient (CLI) | payer MEDICAID, SELFPAY ==
--- NOTE | 2020-08-08 11:30 | CT_ITS ---
WS: [id number] CT ABDOMEN AND PELVIS WITH CONTRAST HISTORY: R10.33 - Periumbilical pain TECHNIQUE: Imaging performed of the abdomen and pelvis with IV contrast. Single phase imaging of the abdomen. Coronal and sagittal reformats are submitted. All CT scans at [facility] use at least one of these dose optimization techniques: automated exposure control; mA and/or kV adjustment per patient size (includes targeted exams where dose is matched to clinical indication); or iterativ e reconstruction. IV CONTRAST: Visipaque 320; 95 mL IV. Oral contrast: Yes. DLP: 1535.79 mGy.cm COMPARISON: 01/19/2020 Lower thorax: Lung bases are clear. Heart is normal size. Small hiatal hernia. Liver/biliary system: Liver is top normal size with mild hepatic steatosis. Hypodense nodule measurin g 5 mm in the lateral segment LEFT lobe of the liver is unchanged. Surface of the liver is irregular. No bile duct dilatation. Gallbladder: Mildly contracted gallbladder. No adjacent inflammation. Pancreas: Normal. Spleen: Spleen is top normal size at 14 cm in length. Adrenal glands: Normal. Right kidney: Cortical cyst lower pole measures 8 mm. No obstruction. Left kidney: Normal. Aorta: Normal. Lymphadenopathy: None. Free fluid: None. GI tract: No evidence for appendicitis or obstruction. There are few sigmoid diverticula without acut e inflammation. Within the small bowel loops there are numerous tubular intraluminal defects which ne ed to be further evaluated. These may be ingested foreign bodies or parasitic worms. If these structu res are not able to extend to the terminal ileum obstruction is pending. Abdominal wall: Small fat-containing umbilical hernia. Pelvis: Normal. Bones: Partial sacralization L5 on the RIGHT. CT/CT abdomen pelvis w con* [id number] IMPRESSION: 1. No evidence for GI tract obstruction, appendicitis or diverticulitis. 2. Abnormal tubular structures in the small bowel. Not causing obstruction. In gested, nondigested foreign bodies vs helminthic/parasitic disease. 3. Hepatic steatosis. 4. Mild stable splenomegaly. Notified Renny Gould MD at 08/08/2020 12:21 PM.
[2020-08-08] MEDS: iodixanol 320 mg/mL 100mL Btl IV (11:32)
== END 2020-08-08 10:00 | disposition home or self-care (01) ==
LOC: RAD 10:03
PROVIDERS: PCP Family Medicine; Visit Provider Surgery
DX: R10.33 Periumbilical pain (principal); K76.0 Fatty (change of) liver, not elsewhere classified; R16.1 Splenomegaly, not elsewhere classified
CPT/HCPCS: 74177

== ENCOUNTER 2020-08-24 08:32 | Outpatient (CLI) | payer MEDICAID, SELFPAY ==
--- NOTE | 2020-08-24 09:00 | CT_ITS ---
WS: [id number] CT scan of the abdomen and pelvis with Oral contrast. Additional two-dimensional coronal and sagittal reconstruction was performed. 08/24/2020 Clinical Data: R93.3 - Abnormal findings on diagnostic imaging of other parts of digestive tract Comparison: CT abdomen and pelvis, 08/08/2020. DLP: 1115.[address] scans at [facility] use at least one of these dose optimization techniques: automat ed exposure control; mA and/or kV adjustment per patient size (includes targeted exams where dose is matched to clinical indication); or iterative reconstruction. Findings: The lower lungs show no nodules, masses or effusions. The liver, gallbladder, spleen, adrenal glands and pancreas are normal. The kidneys show equal bilateral contrast excretion with no cyst or masses. The abdominal aorta is normal in size. No appendicitis or diverticulitis is seen. Oral contrast is in the stomach and small bowel and there is no bowel dilatation. No abnormal intraluminal filling defects of the small bowel can be seen. No a bscess, adenopathy, ascites, mass, obstruction or free air is present. The bladder is unremarkable. N o inguinal hernia is seen. The prostate is enlarged. There is an incidental cyst of the right spermat ic cord. The bones of the lower thorax, lumbar spine, pelvis, and hips are normal. CT/CT abdomen pelvis wo con [id number] Impression: 1. Negative for abnormal intraluminal small bowel filling defects. 2. Negative for acute intra-abdominal or pelvic abnormalities.
[2020-08-24] MEDS: iohexol 300 mg/mL 50 mL Btl PO (09:29)
== END 2020-08-24 08:33 | disposition home or self-care (01) ==
PROVIDERS: PCP Family Medicine; Visit Provider Surgery
DX: R93.3 Abnormal findings on diagnostic imaging of other parts of digestive tract (principal)
CPT/HCPCS: 74176; Q9967

== ENCOUNTER 2020-12-13 13:48 | Emergency (ER) | payer MEDICAID, SELFPAY ==
[2020-12-13 13:53] VITALS: BP 139/80; PULSE 102; RESP 16; TEMP 36.8; O2SAT 94; BMI 34.9
--- NOTE | 2020-12-13 14:31 | ECG_ITS ---
[facility] Test Date: 2020-12-13 Pat Name: Nicko Obrien Department: Room: Gender: Male Manager Work: : 1965 Requested By: Luna Zamudio Order Number: [id number] Lindsay MD: Chiara Perez M.D. Measurements Intervals [place] Rate: 103 P: 36 SC: 124 QRS: -4 QRSD: 105 T: 32 QT: 348 QTc: 456 Interpretive Statements SINUS TACHYCARDIA POSSIBLE LEFT ATRIAL ENLARGEMENT [-0.1mV P WAVE IN V1/V2] INFERIOR MYOCARDIAL INFARCTION [40+ ms Q WAVE AND/OR ST/T ABNORMALITY IN II/aVF], OF INDETERMINATE AGE Compared to ECG 11/21/2019 02:42:01 Myocardial infarct finding now present Sinus rhythm no longer present Electronically Signed On 12-13-2020 20:38:00 CDT by Chiara Perez M.D. [email or web address]
--- NOTE | 2020-12-13 14:34 | XR_ITS ---
WS: [id number] Exam: XR chest 1V portable [id number] Date/Time of Exam: 12/13/2020 2:34 PM Reason For Exam: chest pain Comparison 12/31/2019. Findings: The lungs are clear and fully expanded. Costophrenic angles are sharp. No infiltrates. Bronchovascula r relief appears normal. Cardiac silhouette is unremarkable. Bony elements are intact. XR/XR chest 1V portable [id number] IMPRESSION: Unremarkable chest radiograph.
[2020-12-13 14:43] VITALS: BP 139/93; PULSE 106; RESP 16; O2SAT 95
--- NOTE | 2020-12-13 14:44 | ED_ITS ---
HPI - Chest Pain General: Chief Complaint: Chest Pain Stated Complaint: CP, H/A, BACK PAIN, L ARM PAIN RADIATING TO NECK Time Seen by Provider: 12/13/20 14:29 History of Present Illness: HPI narrative: This patient is a 55 year old male presenting with chest pain. He reports that it started while he was sitting and watching TV. He also has had 2 episodes of vomiting since the pain started. He has had prior episodes of chest pain in the past - about two years ago was her with chest pain and had a stress test - which was normal. Associated symptoms: Reports abdominal pain, nausea and vomiting; Deny dyspnea or fever(s) Review of Systems General: Reports: 10 or more systems reviewed and unremarkable except in HPI and below Const: Denies: fever(s), chills, fatigue or malaise Eyes: Denies: change in vision ENMT: Denies: odynophagia Card: Reports: chest pain; Denies: swelling of feet/ankles Resp: Denies: dyspnea, productive cough or non-productive cough GI: Reports: abdominal pain, nausea and vomiting : Denies: flank pain Musc: Denies: neck pain or back pain Skin/Breast: Denies: rash Neuro: Denies: headache(s), numbness in extremities or weakness in extremities Jayson/Lymph: Denies: easy bruising or easy bleeding PFS ED PFSH: Medical History COPD (chronic obstructive pulmonary disease) Depression Diabetes mellitus, type II Diastasis recti Dyslipidemia Gastroesophageal reflux Hiatal hernia Hypertension Migraine Sleep apnea TIA (transient ischemic attack) Had several episodes , most recent one was in Aug. Has Migraine head ache Surgical History H/O esophagogastroduodenoscopy (~12/06/19) Gastritis H/O hernia repair History of carpal tunnel release Left History of thumb surgery Status post colonoscopy (~12/06/19) AVMs ascending colon Family History Other CAD (coronary artery disease) Cancer Denies family history of Anesthesia complication Bleeding disorder Social History Smoking and tobacco status: never smoked Alcohol intake: former Lives independently: Yes Household members: spouse History of recent travel: No Physical Exam Const: COMMON NORMALS: no acute distress, patient oriented x3, no limitations and alert GENERAL APPEARANCE: cooperative and comfortable HENMT: HEAD & SCALP: normal to inspection FACE & SINUS: normal facial exam Eye: GENERAL EYE: appearance normal, both eyes and all related structures Neck/C-Spine: COMMON NORMALS: supple, no meningeal signs and no JVD Chest: COMMONS NORMALS: normal inspection of the chest Resp: COMMON NORMALS: normal respiratory effort, No use of accessory muscles and clear to auscultation bilaterally AUSCULTATION: clear to auscultation bilaterally Cardio: COMMON NORMALS: no JVD, regular rate, regular rhythm and No murmurs present (Cardio) RATE: regular rate RHYTHM: regular rhythm GI: COMMON NORMALS: Normal to inspection, nondistended, normoactive bowel sounds present, Soft to palpation and non-tender INSPECTION: Yes normal to inspection AUSCULTATION: Yes normoactive bowel sounds PALPATION: Yes Soft to palpation Back/Pelvis: COMMON NORMALS: thoracic and lumbar spine normal to inspection Extremity: COMMON NORMALS: normal to inspection Neuro: COMMON NORMALS: patient oriented x3, moves all extremities, no focal motor deficits and no sensory deficits noted SENSORIUM/ORIENTATION: Yes alert MENINGEAL SIGNS: Yes no meningeal signs Psych: COMMON NORMALS: mental status grossly normal, cooperative and normal affect Skin: COMMON NORMALS: no rashes or lesions noted and turgor normal GENERAL SKIN EXAM: no rashes or lesions noted and turgor normal Course ED course: Patient looked fairly comfortable on initial arrival - but throughout ED stay became more uncomfortable and tachycardic. Given zofran twice, and morphine ordered. On re-examination, increased tenderness in the RUQ so US ordered. Cardiac work up seems neg so far. On second liter of fluids. care turned over to Dr. Ochoa. Vital Signs: Vital signs: Vital Signs Temperature 98.3 F 12/13/20 13:53 Pulse Rate 110 H 12/13/20 16:34 Respiratory Rate 20 H 12/13/20 16:34 Blood Pressure 152/91 12/13/20 16:34 Pulse Oximetry 96 12/13/20 16:34 MDM - Chest Pain Lab Data: Labs: Lab Results 12/13/20 12/13/20 12/13/20 Range/Units 14:35 14:35 14:35 WBC 10.4 H (4.0-10.0) 10^3/ uL RBC 5.77 H (4.1-5.3) 10^6/u L Hgb 18.6 H (11.7-16.6) g/dL Hct 54.5 H (42.0-52.0) % MCV 94.5 H (80-94) fL MCH 32.2 (28.0-34.0) pg MCHC 34.1 (30.0-36.0) g/dL RDW 13.4 (12.1-15.1) % Plt Count 165 (130-400) 10^3/c mm MPV 10.0 (7.4-10.4) fL Neut % (Auto) 81.0 % Lymph % (Auto) 10.3 % [place] % (Auto) 5.8 % Eos % (Auto) 1.9 % Baso % (Auto) 0.5 % Neut # (Auto) 8.46 H (1.8-7.7) 10^3/u L Lymph # (Auto) 1.1 (0.8-4.8) 10^3/u L [place] # (Auto) 0.6 (0.2-0.9) 10^3/u L Eos # (Auto) 0.2 (0.0-0.8) 10^3/u L Baso # (Auto) 0.1 (0.0-0.1) 10^3/u L Nucleated RBC % (a uto) 0 % Nucleated RBCs # 0.0 /100WBC D-Dimer 0.55 (0-0.59) ug/mIFE U Sodium (136-145) mmol/L Potassium (3.5-5.1) mmol/L Chloride (98-107) mmol/L Carbon Dioxide (22-29) mmol/L Anion Gap (5-19) BUN (6-20) mg/dL Creatinine (0.7-1.2) mg/dL GFR Calculation (90-130) mL/min Glucose (65-115) mg/dL Calculated Osmolal ity (285-295) mOsm/k g Calcium (8.5-10.5) mg/dL Total Bilirubin (0.15-1.2) mg/dL AST (0-40) U/L ALT (0-41) U/L Alkaline Phosphata se (40-130) IU/L Troponin T Baselin e 9 (0-15) ng/L Troponin T 120 Min curyung (0-15) ng/L Delta Troponin T (0-10) ABS# Total Protein (6.6-8.7) g/dL Albumin (3.5-5.2) g/dL Globulin (1.3-4.6) g/dL Lipase (13-60) U/L Urine Color (Yellow) Urine Appearance (CLEAR) Urine pH (5-7) Ur Specific Gravit y (1.005-1.030) Urine Protein (Negative) Urine Glucose (UA) (Normal) Urine Ketones (Negative) Urine Blood (Negative) Urine Nitrate (Negative) Urine Bilirubin (Negative) Urine Urobilinogen (Negative) mg/dL Ur Leukocyte Jessica ase (Negative) 12/13/20 12/13/20 12/13/20 Range/Units 14:35 16:32 16:32 WBC (4.0-10.0) 10^3/ uL RBC (4.1-5.3) 10^6/u L Hgb (11.7-16.6) g/dL Hct (42.0-52.0) % MCV (80-94) fL MCH (28.0-34.0) pg MCHC (30.0-36.0) g/dL RDW (12.1-15.1) % Plt Count (130-400) 10^3/c mm MPV (7.4-10.4) fL Neut % (Auto) % Lymph % (Auto) % [place] % (Auto) % Eos % (Auto) % Baso % (Auto) % Neut # (Auto) (1.8-7.7) 10^3/u L Lymph # (Auto) (0.8-4.8) 10^3/u L [place] # (Auto) (0.2-0.9) 10^3/u L Eos # (Auto) (0.0-0.8) 10^3/u L Baso # (Auto) (0.0-0.1) 10^3/u L Nucleated RBC % (a uto) % Nucleated RBCs # /100WBC D-Dimer (0-0.59) ug/mIFE U Sodium 138 (136-145) mmol/L Potassium 3.9 (3.5-5.1) mmol/L Chloride 100 (98-107) mmol/L Carbon Dioxide 27 (22-29) mmol/L Anion Gap 14.9 (5-19) BUN 11 (6-20) mg/dL Creatinine 0.6 L (0.7-1.2) mg/dL GFR Calculation 140.4 H (90-130) mL/min Glucose 109 (65-115) mg/dL Calculated Osmolal ity 286 (285-295) mOsm/k g Calcium 9.6 (8.5-10.5) mg/dL Total Bilirubin 1.0 (0.15-1.2) mg/dL AST 63 H (0-40) U/L ALT 52 H (0-41) U/L Alkaline Phosphata se 168 H (40-130) IU/L Troponin T Baselin e (0-15) ng/L Troponin T 120 Min curyung 8.70 (0-15) ng/L Delta Troponin T -0.30 L (0-10) ABS# Total Protein 8.2 (6.6-8.7) g/dL Albumin 4.6 (3.5-5.2) g/dL Globulin 3.6 (1.3-4.6) g/dL Lipase 41 (13-60) U/L Urine Color Yellow (Yellow) Urine Appearance Clear (CLEAR) Urine pH 5 (5-7) Ur Specific Gravit y 1.020 (1.005-1.030) Urine Protein Neg (Negative) Urine Glucose (UA) 4+ H (Normal) Urine Ketones 1+ H (Negative) Urine Blood Neg (Negative) Urine Nitrate Negative (Negative) Urine Bilirubin Neg (Negative) Urine Urobilinogen Norm (Negative) mg/dL Ur Leukocyte Jessica ase Negative (Negative) Discharge Plan Discharge Prescriptions: No Action pantoprazole 40 mg tablet,delayed release (DR/EC) 40 mg PO BEDTIME RF: 0 venlafaxine [Effexor XR] 150 mg capsule,extended release 24hr 150 mg PO QPM RF: 0 aspirin [Adult Low Dose Aspirin] 81 mg tablet,delayed release (DR/EC) 81 mg PO BEDTIME RF: 0 tramadol 50 mg tablet 50 mg PO BID PRN (Reason: Pain) RF: 0 metformin 500 mg tablet 1,000 mg PO BID RF: 0 glipizide 5 mg tablet 5 mg PO BID RF: 0 ferrous sulfate 325 mg (65 mg iron) tablet 325 mg PO BID RF: 0 carvedilol 3.125 mg tablet 3.125 mg PO BID 30 Days Qty: 60 RF: 5 (DME) Diabetic Shoes See Rx Instructions .Route .MEDSUPPLY Qty: 1 RF: 0 tamsulosin 0.4 mg capsule 0.4 mg PO DAILY RF: 0 (DME) Diabetic Shoes See Rx Instructions .Route .MEDSUPPLY Qty: 1 RF: 0 losartan 50 mg tablet 25 mg PO BEDTIME RF: 0 multivitamin Tablet 1 tab PO DAILY RF: 0 Flexeril 10 mg Tablet 10 mg PO BID PRN (Reason: Muscle Spasm) RF: 0 tizanidine 2 mg tablet 6 mg PO BEDTIME RF: 0 trazodone 50 mg Tablet 50 - 100 mg PO BEDTIME PRN (Reason: Sleep) RF: 0 gabapentin 300 mg Capsule See Rx Instructions .ROUTE .COMPLEX RF: 0 clobetasol 0.05 % Ointment 1 applic TOPICAL BID RF: 0 lovastatin 20 mg Tablet 20 mg PO BEDTIME RF: 0 ProAir HFA 90 mcg/actuation Hfa Aerosol Inhaler 2 puff INHALATION Q4H PRN (Reason: Shortness Of Breath) RF: 0 Tylenol 325 mg Capsule 650 mg PO PRN RF: 0 Lantus Solostar U-100 Insulin 100 unit/mL (3 mL) Insulin Pen See Rx Instructions .ROUTE .COMPLEX RF: 0 Jardiance 25 mg Tablet 25 mg PO BEDTIME RF: 0 Coding Level of Care Code ED Construction Specialist for Felipa Pérez
[2020-12-13 15:03] LABS: Troponin(5th) Baseline 9 ng/L (0-15)
[2020-12-13 15:25] LABS: Basophils # 0.1 10^3/uL (0.0-0.1); Basophils % 0.5 %; Eosinophils # 0.2 10^3/uL (0.0-0.8); Eosinophils % 1.9 %; Hematocrit 54.5 % (42.0-52.0); Hemoglobin 18.6 g/dL (11.7-16.6); Lymphocytes # 1.1 10^3/uL (0.8-4.8); Lymphocytes % 10.3 %; Mean Corpuscular HGB Conc 34.1 g/dL (30.0-36.0); Mean Corpuscular Hemoglobin 32.2 pg (28.0-34.0); Mean Corpuscular Volume 94.5 fL (80-94); Monocytes # 0.6 10^3/uL (0.2-0.9); Monocytes % 5.8 %; Neutrophils # 8.46 10^3/uL (1.8-7.7); Nucleated Red Blood Cells % 0 %; Platelet Count 165 10^3/cmm (130-400); Red Blood Count 5.77 10^6/uL (4.1-5.3); Red Cell Distribution Width 13.4 % (12.1-15.1); White Blood Count 10.4 10^3/uL (4.0-10.0)
[2020-12-13 16:10] LABS: Alanine Aminotransferase 52 U/L (0-41); Albumin Level 4.6 g/dL (3.5-5.2); Alkaline Phosphatase 168 IU/L (40-130); Anion Gap 14.9 (5-19); Aspartate Amino Transferase 63 U/L (0-40); Blood Urea Nitrogen 11 mg/dL (6-20); Calcium 9.6 mg/dL (8.5-10.5); Carbon Dioxide 27 mmol/L (22-29); Chloride 100 mmol/L (98-107); Globulin 3.6 g/dL (1.3-4.6); Glomerular Filtration Rate 140.4 mL/min (90-130); Glucose 109 mg/dL (65-115); Lipase 41 U/L (13-60); Osmolality Calculated 286 mOsm/kg (285-295); Potassium 3.9 mmol/L (3.5-5.1); Sodium 138 mmol/L (136-145); Total Protein 8.2 g/dL (6.6-8.7)
[2020-12-13 16:27] LABS: D Dimer 0.55 ug/mIFEU (0-0.59)
[2020-12-13] MEDS: ondansetron 2 mg/ML SDV 2 mL 4 MG IVP (16:30)
--- NOTE | 2020-12-13 16:31 | ECG_ITS ---
[facility] Test Date: 2020-12-13 Pat Name: Nicko Obrien Department: Room: Gender: Male [employer] Agent: : 1965 Requested By: Luna Zamudio Order Number: [id number] Lindsay MD: Chiara Perez M.D. Measurements Intervals [place] Rate: 109 P: 62 IA: 150 QRS: 15 QRSD: 83 T: 48 QT: 339 QTc: 458 Interpretive Statements SINUS TACHYCARDIA ABNORMAL RHYTHM ECG Compared to ECG 12/13/2020 13:52:08 Myocardial infarct finding no longer present Electronically Signed On 12-13-2020 20:45:06 CDT by Chiara Perez M.D. [id number]
[2020-12-13 16:34] VITALS: BP 152/91; PULSE 110; RESP 20; O2SAT 96
[2020-12-13 16:57] LABS: Add Urine Microscopic? NO
[2020-12-13 17:10] LABS: Bilirubin Urine Neg (Negative); Blood Urine Neg (Negative); Glucose Urine UA 4+ (Normal); Ketones Urine 1+ (Negative); Leukocyte Esterase Urine Negative (Negative); Nitrate Urine Negative (Negative); Protein Urine Neg (Negative); Urine Appearance Clear (CLEAR); Urine Color Yellow (Yellow); Urobilinogen Urine Norm (Negative); pH Urine 5 (5-7)
--- NOTE | 2020-12-13 17:23 | US_ITS ---
WS: [id number] RIGHT UPPER QUADRANT ULTRASOUND HISTORY: RUQ pain, vomiting COMPARISON: 12/02/2019 Liver: 17.7 cm in length. Mild hepatomegaly without significant coarsened echotexture. Surface of the liver is irregular and nodular. No mass or bile duct dilatation. Gallbladder: Very mildly distended gallbladder with no stones or pericholecystic fluid. CBD: 0.5 cm Pancreas: Poorly visualized pancreas. Right kidney: 11.3 cm in length. Normal size and echogenicity. No hydronephrosis or mass. Aorta and IVC: Unremarkable abdominal aorta and IVC. No ascites. US/US gall bladder [id number] IMPRESSION: 1. No cholelithiasis or gallbladder wall thickening. 2. Mild hepatomegaly with changes of cirrhosis.
--- NOTE | 2020-12-13 18:13 | CTR_ITS ---
PROCEDURE INFORMATION: Exam: CT Abdomen And Pelvis With Contrast Exam date and time: 12/13/2020 6:18 PM Age: 55 years old Clinical indication: Abdominal pain; Prior surgery; Surgery type: Hernia, egd; Additional info: Abd pain TECHNIQUE: Imaging protocol: Computed tomography of the abdomen and pelvis with contrast. Radiation optimization: All CT scans at this facility use at least one of these dose optimization techniques: automated exposure control; mA and/or kV adjustment per patient size (includes targeted exams where dose is matched to clinical indication); or iterative reconstruction. Contrast material: OMNI 300; Contrast volume: 95 ml; Contrast route: INTRAVENOUS (IV); COMPARISON: CT abdomen pelvis wo con [id number] 08/24/2020 10:31 AM RADIATION DOSE METRICS: Total DLP (mGy-cm): 1860.16 FINDINGS: Lungs: The visualized lung bases are clear. Liver: Normal size and density. No focal mass. Gallbladder and bile ducts: No intrahepatic or extrahepatic biliary dilitation. No calcified stones. Pancreas: No evidence of mass. No ductal dilation. Spleen: No splenomegaly or mass. Adrenal glands: Normal. Kidneys and ureters: Simple appearing cysts in the right kidney measure up to 11 mm. These are incidental do not require further imaging. No stones or hydronephrosis. Stomach and bowel: A few scattered diverticula throughout the colon. No signs of acute diverticulitis. No focal bowel wall thickening or mass. No signs of obstruction. Appendix: The appendix is not clearly seen, but there are no secondary signs of acute appendicitis. Intraperitoneal space: No free air. No free fluid or evidence of abscess. Vasculature: No concerning abnormalities. Lymph nodes: No lymphadenopathy. Urinary bladder: Normal CT appearance. Reproductive: Normal CT appearance for age. Bones/joints: No acute abnormality. Soft tissues: Small fat containing inguinal hernias. CT/CT abdomen pelvis w con* [id number] IMPRESSION: 1. Mild colonic diverticulosis. No signs of acute diverticulitis. 2. Small fat containing inguinal hernias. COMMENTS: Consistent with the [employer]'s Incidental Findings Committee white paper (J Am Elvis Radiol 2018): Any incidental renal lesion less than 1 cm or classified as too small to characterize, or any incidental cystic renal lesion characterized as simple-appearing, is likely benign. No follow-up imaging is recommended for these lesions per consensus recommendations based on imaging criteria. Radiation Dose CTDIVOL = (mGy): DLP = 1860.16 (mGy-cm)
[2020-12-13] MEDS: famotidine 20 mg/2 mL INJ 40 MG IVP (18:34)
[2020-12-13] MEDS: morphine 4 mg/mL SDV 1 mL IVP (18:34)
[2020-12-13] MEDS: diphenhydrAMINE 50 mg/mL SDV 1mL IVP (18:34)
[2020-12-13] MEDS: sodium chloride 0.9% 1,000 ML 999 ML IV ×2 (18:35→19:17)
[2020-12-13 18:45] VITALS: BP 136/84; PULSE 119; RESP 27; TEMP 37.4; O2SAT 94
[2020-12-13] MEDS: iohexol 300 mg/mL 100 mL Btl IV (18:52)
[2020-12-13 19:00] VITALS: BP 136/78; PULSE 115; RESP 26; O2SAT 96
[2020-12-13 20:09] VITALS: BP 135/86; PULSE 115; RESP 18; TEMP 37.1; O2SAT 94
== END 2020-12-13 20:13 | disposition home or self-care (01) ==
PROVIDERS: Emergency Medicine; Emergency Provider Emergency Medicine; PCP Family Medicine
DX: R07.9 Chest pain, unspecified (principal); Z79.82 Long term (current) use of aspirin; Z79.4 Long term (current) use of insulin; J44.9 Chronic obstructive pulmonary disease, unspecified; E11.9 Type 2 diabetes mellitus without complications; E78.5 Hyperlipidemia, unspecified; I10 Essential (primary) hypertension; Z86.73 Personal history of transient ischemic attack (TIA), and cerebral infarction without residual deficits
CPT/HCPCS: 36415; 71045; 74177; 76705; 80053; 81003; 83690; 84484; 85025; 85378; 93005; 96374; 96375; 99285; J1200; J2270; J2405; J3490; J7030; Q9967

== ENCOUNTER 2021-01-28 19:16 | Emergency (ER) | payer MEDICAID, SELFPAY ==
[2021-01-28 20:08] VITALS: BP 132/78; PULSE 80; RESP 16; TEMP 36.7; O2SAT 98; BMI 34.7
[2021-01-28 20:13] VITALS: BP 136/64; PULSE 79; RESP 18; TEMP 37.1; O2SAT 96
[2021-01-28 21:01] VITALS: PULSE 79
--- NOTE | 2021-01-28 21:11 | CTR_ITS ---
PROCEDURE INFORMATION: Exam: CT Lumbar Spine Without Contrast Exam date and time: 01/28/2021 9:13 PM Age: 55 years old Clinical indication: Low back pain; Prior surgery; Surgery date: <1 month; Additional info: Pain recent surgery TECHNIQUE: Imaging protocol: Computed tomography images of the lumbar spine without contrast. Radiation optimization: All CT scans at this facility use at least one of these dose optimization techniques: automated exposure control; mA and/or kV adjustment per patient size (includes targeted exams where dose is matched to clinical indication); or iterative reconstruction. COMPARISON: [place] [id number] 03/10/2017 11:37 AM RADIATION DOSE METRICS: Total DLP (mGy-cm): 2735.76 FINDINGS: Vertebrae: See Discs/Spinal canal/Neural foramina finding. Discs/Spinal canal/Neural foramina: Interval surgery with placement of posterior instrumentation at L3 and L4 as well as intervertebral disc space prosthesis. No acute bony findings. Soft tissues: Unremarkable. CT/CT lumbar spine wo con* [id number] IMPRESSION: No acute findings. Radiation Dose CTDIVOL = (mGy): DLP = 2735.76 (mGy-cm)
[2021-01-28] MEDS: dexamethasone 10 mg/mL INJ IM (21:35)
[2021-01-28] MEDS: ketorolac 60 mg/2 mL INJ IM (21:35)
--- NOTE | 2021-01-28 22:36 | ED_ITS ---
HPI - Extremity Problem General: Chief complaint: Extremity Problem,Nontraumatic Stated complaint: LOWER BACK/HIP PAIN Time Seen by Provider: 01/28/21 21:04 Source: patient Mode of arrival: ambulatory Limitations: no limitations History of Present Illness: HPI Narrative: 55 yo male patient presents with lumbar pain that is chronic. Pt states he is having a burning sensation ra diating down his right leg. Pt denies any fever, loss of bowel or bladder. Pt states he has chronic back pain and had lumbar pins placed 3 weeks ago. Pt deneis any urinary symptoms. Pt states he takes oxycodone at home for back pain. pt denies any new injury or trauma. Associated symptoms: Deny chest pain, fever(s) or rash Review of Systems Const: Denies: fever(s), chills, body aches, change in appetite, change in weight, fatigue, malaise or diaphoresis Eyes: Denies: change in vision, blurry vision, blind spots, photophobia, eye discomfort, eye discharge, eye redness, floaters or seeing flashes ENMT: Denies: throat pain, uvular edema, enlarged tonsils, odynophagia, hoarseness, mouth pain, swelling of lips/tongue, oral sores, bleeding gums, dental pain, dry mouth, ear or mastoid pain, ear discharge, change in hearing, tinnitus, disequilibrium, nasal discharge, nasal congestion, post nasal drip or sinus pain Card: Denies: chest pain, palpitations, irregular heart rhythm, edema, swelling of feet/ankles, lightheadedness, syncope, pre-syncope, dyspnea on exert ion, orthopnea, leg pain with exertion or acrocyanosis Resp: Denies: dyspnea, productive cough, non-productive cough, wheezing, stridor, pain on inspiration, change in phlegm color, hemoptysis or chest congestion GI: Denies: abdominal pain, nausea, vomiting, hematemesis, dysphagia, diarrhe a, constipation, GI cramping, change in bowel habits or rectal pain : Denies: flank pain, dysuria, urinary frequency, urinary urgency, urinary hesitancy or hematuria Musc: Reports: back pain; Denies: neck pain, extremity pain, extremity swelling, joint pain, joint swelling, joint redness, joint warmth or deformity Skin/Breast: Denies: rash, pruritus, erythema, sores, new lesions, changes in skin color or dry skin Neuro: Denies: headache(s), numbness in extremities, weakness in extremities, sensory changes, lack of coordination, difficulty walking, frequent falls, dizziness, vertigo, confusion, behavioral changes, Slurred speech present, difficulty communicating thoughts or seizure-like activity Psych: Denies: anxiety, depression, suicidal ideation or homicidal ideation Endo: Denies: polyuria, polydipsia, tired all the time, cold intolerance, excessive sweating, flushing, hot flashes or heat intolerance Jayson/Lymph: Denies: easy bruising, easy bleeding, petechiae, purpura, enlarged lymph nodes or tender lymph nodes All/Imm: Denies: urticaria, throat swelling, tongue swelling, facial swelling, acute wheezing or itchy eyes PFSH ED PFSH: Medical History COPD (chronic obstructive pulmonary disease) Depression Diabetes mellitus, type II Diastasis recti Dyslipidemia Gastroesophageal reflux Hiatal hernia Hypertension Migraine Sleep apnea TIA (transient ischemic attack) Had several episodes , most recent one was in Aug. Has Migraine head ache Surgical History H/O esophagogastroduodenoscopy (~12/06/19) Gastritis H/O hernia repair History of carpal tunnel release Left History of thumb surgery Status post colonoscopy (~12/06/19) AVMs ascending colon Family History Mother CAD (coronary artery disease) Stroke Sister CAD (coronary artery disease) Cancer Diabetes Brother CAD (coronary artery disease) Family/Other Cancer Diabetes Grandmother Diabetes Father Lung disease Denies family history of Clotting disorder Dementia Chronic kidney disease (CKD) Suicide Anesthesia complication Bleeding disorder Social History Smoking and tobacco status: never smoked Alcohol intake: former Lives independently: Yes Household members: spouse History of recent travel: No Physical Exam Const: COMMON NORMALS: no acute distress, average body habitus, patient oriented x3, no limitations, healthy appearing, alert and well nourished HENMT: COMMON NORMALS: normocephalic and atraumatic HEAD & SCALP: normocephalic and atraumatic THROAT: no uvular edema Eye: COMMON NORMALS: Equal, round and reactive pupils present PUPIL: Yes Equal, round and reactive pupils present Neck/C-Spine: COMMON NORMALS: full ROM, no lymphadenopathy, supple, no meningeal signs, no JVD, Thyroid normal and No carotid bruits THYROID: Thyroid normal Lymph: LYMPHATIC: no lymphadenopathy noted and no lymphedema noted Chest: COMMONS NORMALS: normal inspection of the chest Resp: COMMON NORMALS: normal respiratory effort, No retractions, No use of accessory muscles and clear to auscultation bilaterally AUSCULTATION: clear to auscultation bilaterally Cardio: COMMON NORMALS: no JVD, regular rate and regular rhythm RATE: regular rate RHYTHM: regular rhythm GI: COMMON NORMALS: Normal to inspection, nondistended, normoactive bowel sounds present, Soft to palpation, non-tender, No hepatosplenomegaly present, no masses and no bruits PALPATION: Yes Soft to palpation and Yes No hepatosplenomegaly present : COMMON NORMALS: Yes no CVA tenderness BLADDER/KIDNEY EXAM: Yes no CVA tenderness and No CVA tenderness MALE GROIN/PERINEUM EXAM: Yes other (Pt has good rectal tone) Back/Pelvis: COMMON NORMALS: no CVA tenderness, thoracic and lumbar spine normal to inspection, thoraco-lumbar ROM normal and straight leg raise negative bilaterally GENERAL BACK: No CVA tenderness, No mass, No erythema, No ecchymosis, Yes scar(s), No swelling, Yes tenderness and No Millan-Lange sign THORACIC SPINE/UPPER BACK: Yes normal to inspection and Yes thoracic ROM normal LUMBAR SPINE/LOWER BACK: Yes normal to inspection, Yes lumbar ROM normal, Yes lumbar spinal tenderness, Yes paraspinal muscle tenderness and Yes straight leg raise negative bilaterally SACROILIAC JOINTS: Yes SI joints normal Extremity: COMMON NORMALS: normal to inspection, full ROM, capillary refill normal, no joint enlargement, no clubbing, cyanosis or edema, no calf tenderness and no pedal edema Neuro: COMMON NORMALS: patient oriented x3 SENSORIUM/ORIENTATION: Yes alert MENINGEAL SIGNS: Yes no meningeal signs Psych: COMMON NORMALS: mental status grossly normal, Normal thought process present, cooperative, normal affect, speech normal, activity/motor behavior normal, denies hallucinations, denies homicidal ideation and denies suicidal ideation SPEECH: Yes normal speech THOUGHT PROCESS: Normal thought process present Skin: COMMON NORMALS: no rashes or lesions noted, no wounds, turgor normal, no jaundice, no petechiae and no mottling GENERAL SKIN EXAM: no rashes or lesions noted and turgor normal Course Vital Signs: Vital signs: Vital Signs Temperature 98.8 F 01/28/21 20:13 Pulse Rate 79 01/28/21 21:01 Respiratory Rate 18 01/28/21 20:13 Blood Pressure 136/64 01/28/21 20:13 Pulse Oximetry 96 01/28/21 20:13 MDM - Extremity (Nontraumatic) MDM Narrative: Medical decision making narrative: 55 yo male patient presents with lumbar pain that is chronic. Pt states he is having a burning sensation radiating down his right leg. Pt denies any fever, loss of bowel or bladder. Pt states he has chronic back pain and had lumbar pins placed 3 weeks ago. Pt deneis any urinary symptoms. Pt states he takes oxycodone at home for back pain. pt denies any new injury or trauma. Pt CT lumbar spine with no acute findings. Pt has good rectal tone. Pt has no fever and no systemic symptoms of illness. Given patient recent placement of pins, I will have him follow up with surgeon. I discussed close return precautions. Pt was given decadron and toradol while here and did have clinical improvement. Differential Diagnosis: Extremity Problem Differential Diagnosis: Likely deep vein thrombosis of lower extremity (epidural abscess, lumbar radiculapthy scitica chronic back pain) Discharge Plan Discharge Condition: Stable Prescriptions: No Action pantoprazole 40 mg tablet,delayed release (DR/EC) 40 mg PO BEDTIME RF: 0 venlafaxine [Effexor XR] 150 mg capsule,extended release 24hr 150 mg PO QPM RF: 0 aspirin [Adult Low Dose Aspirin] 81 mg tablet,delayed release (DR/EC) 81 mg PO BEDTIME RF: 0 tramadol 50 mg tablet 50 mg PO BID PRN (Reason: Pain) RF: 0 metformin 500 mg tablet 1,000 mg PO BID RF: 0 glipizide 5 mg tablet 5 mg PO BID RF: 0 ferrous sulfate 325 mg (65 mg iron) tablet 325 mg PO BID RF: 0 (DME) Diabetic Shoes See Rx Instructions .Route .MEDSUPPLY Qty: 1 RF: 0 tamsulosin 0.4 mg capsule 0.4 mg PO DAILY RF: 0 (DME) Diabetic Shoes See Rx Instructions .Route .MEDSUPPLY Qty: 1 RF: 0 carvedilol 3.125 mg tablet See Rx Instructions .ROUTE .COMPLEX Qty: 60 RF: 5 losartan 50 mg tablet 25 mg PO BEDTIME RF: 0 multivitamin Tablet 1 tab PO DAILY RF: 0 Flexeril 10 mg Tablet 10 mg PO BID PRN (Reason: Muscle Spasm) RF: 0 tizanidine 2 mg tablet 6 mg PO BEDTIME RF: 0 trazodone 50 mg Tablet 50 - 100 mg PO BEDTIME PRN (Reason: Sleep) RF: 0 gabapentin 300 mg Capsule See Rx Instructions .ROUTE .COMPLEX RF: 0 clobetasol 0.05 % Ointment 1 applic TOPICAL BID RF: 0 lovastatin 20 mg Tablet 20 mg PO BEDTIME RF: 0 ProAir HFA 90 mcg/actuation Hfa Aerosol Inhaler 2 puff INHALATION Q4H PRN (Reason: Shortness Of Breath) RF: 0 Tylenol 325 mg Capsule 650 mg PO PRN RF: 0 Jardiance 25 mg Tablet 25 mg PO BEDTIME RF: 0 Lantus Solostar U-100 Insulin 100 unit/mL (3 mL) insulin pen See Rx Instructions .ROUTE .COMPLEX RF: 0 Discharge Orders: Discharge ED (Routine); Ordered 01/28/21 Ordered By: Didi Moya Referrals: Luis Fernando Rhodes [Primary Care Provider] - Discharge Diet: Advance as tolerated Discharge Activity: Increase activity as tolerated Activity Restrictions/Additional Instructions: Please follow up with surgeon Please return with any worsening of symptoms, fever, loss of bowel or bladder or any other concerning findings. Coding Level of Care Code ED Roving Machine Operator for Felipa Pérez
[2021-01-28 22:54] VITALS: BP 139/78; PULSE 74; RESP 18; TEMP 36.7; O2SAT 97
== END 2021-01-28 22:55 | disposition home or self-care (01) ==
PROVIDERS: Emergency Provider Registered Nurse; PCP Family Medicine
DX: M54.5 Low back pain (principal); Z79.82 Long term (current) use of aspirin; Z79.4 Long term (current) use of insulin
CPT/HCPCS: 72131; 96372; 99283; J1100; J1885

== ENCOUNTER 2021-01-31 22:54 | Emergency (ER) | payer MEDICAID, SELFPAY ==
[2021-01-31 23:09] VITALS: BP 128/70; PULSE 83; RESP 18; TEMP 36.7; O2SAT 96; BMI 34.7
--- NOTE | 2021-01-31 23:41 | ED_ITS ---
HPI - Back Pain/Injury General: Chief Complaint: Back Pain/Injury Stated Complaint: BACK PAIN Time Seen by Provider: 01/31/21 22:56 Source: patient Mode of arrival: ambulatory Limitations: no limitations History of Present Illness: HPI Narrative: 55-year-old male is a history of chronic back pain who had back surgery 3 weeks ago. He states that tonight he was riding a car and felt a sharp twinge in his right lower back with some pain rating down his right side. He denies any difficulty ambulating and denies any bowel or bladder incontinence. States pain is currently a 7 out of 10. He is scheduled to see his neurosurgeon next week and has an MRI scheduled next . Associated symptoms: Deny abdominal pain, chills, dysuria, fever(s), nausea or vomiting Review of Systems Const: Denies: fever(s), chills, body aches or change in appetite Eyes: Denies: blurry vision or eye discomfort ENMT: Denies: throat pain or dental pain Card: Denies: chest pain Resp: Denies: dyspnea GI: Denies: abdominal pain, nausea, vomiting or diarrhea : Denies: dysuria Musc: Reports: back pain; Denies: neck pain Skin/Breast: Denies: rash Neuro: Denies: headache(s) Psych: Denies: depression Jayson/Lymph: Denies: easy bruising All/Imm: Denies: urticaria PFSH ED PFSH: Medical History COPD (chronic obstructive pulmonary disease) Depression Diabetes mellitus, type II Diastasis recti Dyslipidemia Gastroesophageal reflux Hiatal hernia Hypertension Migraine Sleep apnea TIA (transient ischemic attack) Had several episodes , most recent one was in Aug. Has Migraine head ache Surgical History H/O esophagogastroduodenoscopy (~12/06/19) Gastritis H/O hernia repair History of carpal tunnel release Left History of thumb surgery Status post colonoscopy (~12/06/19) AVMs ascending colon Family History Mother CAD (coronary artery disease) Stroke Sister CAD (coronary artery disease) Cancer Diabetes Brother CAD (coronary artery disease) Family/Other Cancer Diabetes Grandmother Diabetes Father Lung disease Denies family history of Clotting disorder Dementia Chronic kidney disease (CKD) Suicide Anesthesia complication Bleeding disorder Social History Smoking and tobacco status: never smoked Alcohol intake: former Lives independently: Yes Household members: spouse History of recent travel: No Physical Exam Const: COMMON NORMALS: no acute distress, patient oriented x3 and healthy appearing HENMT: COMMON NORMALS: normocephalic and atraumatic HEAD & SCALP: normocephalic and atraumatic Eye: COMMON NORMALS: Equal, round and reactive pupils present and EOMs intact bilaterally PUPIL: Yes Equal, round and reactive pupils present Neck/C-Spine: COMMON NORMALS: full ROM and supple Chest: COMMONS NORMALS: normal inspection of the chest and normal palpation of entire chest wall Resp: COMMON NORMALS: normal respiratory effort, No retractions, No use of accessory muscles and clear to auscultation bilaterally AUSCULTATION: clear to auscultation bilaterally Cardio: COMMON NORMALS: regular rate, regular rhythm and No murmurs present (C ardio) RATE: regular rate RHYTHM: regular rhythm GI: COMMON NORMALS: Normal to inspection, nondistended, normoactive bowel sounds present, Soft to palpation, non-tender and no masses PALPATION: Yes Soft to palpation Back/Pelvis: OTHER: Tenderness to right lower back with no midline tenderness no saddle anesthesia Extremity: COMMON NORMALS: normal to inspection and full ROM Neuro: COMMON NORMALS: patient oriented x3, moves all extremities and no focal motor deficits Psych: COMMON NORMALS: mental status grossly normal, Normal thought process present and cooperative THOUGHT PROCESS: Normal thought process present Skin: COMMON NORMALS: no rashes or lesions noted and no wounds GENERAL SKIN EXAM: no rashes or lesions noted Course Vital Signs: Vital signs: Vital Signs Temperature 98.1 F 01/31/21 23:09 Pulse Rate 75 01/31/21 23:51 Respiratory Rate 18 01/31/21 23:09 Blood Pressure 131/80 01/31/21 23:51 Pulse Oximetry 95 01/31/21 23:51 MDM - Back Pain/Injury MDM Narrative: Medical decision making narrative: Patient presents here with back pain is chronic in nature. His pain is much improved here. He has no signs of cord compression or epidural abscess. He is stable for discharge. Patient is able ambulate without any difficulty. He is to follow-up with his neurosurgeon next week and have his MRI next week as scheduled. He is return if worsening. Discharge Plan Discharge Patient Disposition: Home Clinical Impression: Low back pain Qualifiers: Chronicity: chronic Back pain laterality: bilateral Sciatica presence: without sciatica Qualified Code(s): M54.5 - Low back pain Condition: Stable Prescriptions: New hydrocodone-acetaminophen 5-325 mg tablet 1 tab PO Q6H PRN (Reason: pain) Qty: 14 RF: 0 No Action pantoprazole 40 mg tablet,delayed release (DR/EC) 40 mg PO BEDTIME RF: 0 venlafaxine [Effexor XR] 150 mg capsule,extended release 24hr 150 mg PO QPM RF: 0 aspirin [Adult Low Dose Aspirin] 81 mg tablet,delayed release (DR/EC) 81 mg PO BEDTIME RF: 0 tramadol 50 mg tablet 50 mg PO BID PRN (Reason: Pain) RF: 0 metformin 500 mg tablet 1,000 mg PO BID RF: 0 glipizide 5 mg tablet 5 mg PO BID RF: 0 ferrous sulfate 325 mg (65 mg iron) tablet 325 mg PO BID RF: 0 (DME) Diabetic Shoes See Rx Instructions .Route .MEDSUPPLY Qty: 1 RF: 0 tamsulosin 0.4 mg capsule 0.4 mg PO DAILY RF: 0 (DME) Diabetic Shoes See Rx Instructions .Route .MEDSUPPLY Qty: 1 RF: 0 carvedilol 3.125 mg tablet See Rx Instructions .ROUTE .COMPLEX Qty: 60 RF: 5 losartan 50 mg tablet 25 mg PO BEDTIME RF: 0 multivitamin Tablet 1 tab PO DAILY RF: 0 Flexeril 10 mg Tablet 10 mg PO BID PRN (Reason: Muscle Spasm) RF: 0 tizanidine 2 mg tablet 6 mg PO BEDTIME RF: 0 trazodone 50 mg Tablet 50 - 100 mg PO BEDTIME PRN (Reason: Sleep) RF: 0 gabapentin 300 mg Capsule See Rx Instructions .ROUTE .COMPLEX RF: 0 clobetasol 0.05 % Ointment 1 applic TOPICAL BID RF: 0 lovastatin 20 mg Tablet 20 mg PO BEDTIME RF: 0 ProAir HFA 90 mcg/actuation Hfa Aerosol Inhaler 2 puff INHALATION Q4H PRN (Reason: Shortness Of Breath) RF: 0 Tylenol 325 mg Capsule 650 mg PO PRN RF: 0 Jardiance 25 mg Tablet 25 mg PO BEDTIME RF: 0 Lantus Solostar U-100 Insulin 100 unit/mL (3 mL) insulin pen See Rx Instructions .ROUTE .COMPLEX RF: 0 Discharge Orders: Discharge ED (Routine); Ordered 02/01/21 Ordered By: Darcy Ochoa Referrals: Luis Fernando Rhodes [Primary Care Provider] - Discharge Diet: Advance as tolerated Discharge Activity: Resume usual activity Patient Instructions: Back Pain (ED), Opioid Safety Coding Level of Care Code ED Mixer Operator Helper Hot Metal for Felipa Pérez
[2021-01-31 23:51] VITALS: BP 131/80; PULSE 75; O2SAT 95
[2021-02-01] MEDS: dexamethasone 10 mg/mL INJ IM
[2021-02-01] MEDS: HYDROmorphone 1 mg/mL INJ 1 mL IM
[2021-02-01] MEDS: diazePAM 2 mg Tablet PO (00:01)
[2021-02-01 00:52] VITALS: BP 138/84; PULSE 83; O2SAT 95
== END 2021-02-01 00:54 | disposition home or self-care (01) ==
PROVIDERS: Emergency Provider Emergency Medicine; PCP Family Medicine
DX: G89.29 Other chronic pain (principal); M54.5 Low back pain; Z79.82 Long term (current) use of aspirin; Z79.4 Long term (current) use of insulin; J44.9 Chronic obstructive pulmonary disease, unspecified; E11.9 Type 2 diabetes mellitus without complications; E78.5 Hyperlipidemia, unspecified; I10 Essential (primary) hypertension; Z86.73 Personal history of transient ischemic attack (TIA), and cerebral infarction without residual deficits
CPT/HCPCS: 96372; 99283; J1100; J1170

== ENCOUNTER 2021-02-13 07:02 | Outpatient (CLI) | payer MEDICAID, SELFPAY ==
--- NOTE | 2021-02-13 07:15 | USCV_ITS ---
Nicko Obrien Age: 55 Gender: M : 1965 Exam Date: 02/13/2021 07:31 Ordering Phys: Chiara Perez MD ([email or web address]) Technologist: CHRISTOPHE Exam Location: [facility] [place]ication: Risk Factors: Previous Vascular Surgery: Right Brachial BP: / Left Brachial BP: / Right Left Velocity (cm/s) Spectral Plaque Velocity (cm/s) Spectral Plaque Syst/Diast Broadening Syst/Diast Broadening 84.90/ 18.70 Prox CCA 118.00/ 25.40 71.70/ 16.50 Mid CCA 91.50 / 23.20 55.10/ 19.80 Distal CCA 67.30 / 18.70 48.50/ 17.60 Prox ICA 48.00 / 17.70 55.10/ 20.90 Mid ICA 36.80 / 18.40 69.50/ 30.90 Distal ICA 53.20 / 23.00 82.70 ECA 59.20 0.97 ICA/CCA 0.58 Antegrade Vertebral Antegrade 62.80/ 13.20 cm/s 40.80/ 13.80 cm/s Tri Subclavian Tri 67.30 103.4 0 FINDINGS Intimal thickening in the common carotid and internal carotid arteries bilaterally. Normal Doppler flow velocities. Normal Doppler waveforms. CONCLUSIONS Intimal thickening in the common carotid and internal carotid arteries bilaterally. No significant stenosis in the external or internal carotid arteries bilaterally, based on the above findings Dr Chiara Perez MD [facility] (Electronically Signed) Final Date: 18 Feb 2021 11:15 S
== END 2021-02-13 07:03 | disposition home or self-care (01) ==
LOC: US 07:03
PROVIDERS: PCP Family Medicine; Visit Provider Internal Medicine Cardiovascular Disease
DX: I77.9 Disorder of arteries and arterioles, unspecified (principal); R09.89 Other specified symptoms and signs involving the circulatory and respiratory systems
CPT/HCPCS: 93880

== ENCOUNTER 2021-05-15 07:22 | Outpatient (CLI) | payer MEDICAID, SELFPAY ==
[2021-05-15 07:37] VITALS: BMI 32.7
--- NOTE | 2021-05-15 07:42 | ECG_ITS ---
[facility] Test Date: 2021-05-15 Pat Name: Nicko Obrien Department: Room: Gender: Male Rose Grader: : 1965 Requested By: Chiara Perez Order Number: [id number] Lindsay MD: Chiara Perez M.D. Interpretive Statements NAME OF STUDY: LEXISCAN SESTAMIBI STRESS TEST INDICATION: Chest Pain, PROCEDURE: At the baseline, the EKG revealed sinus bradycardia with a poor R wave progression. The baseline blood pressure was 134/88 mm Hg with a heart rate of 59 beats/min. Lexiscan was infused over a period of 20 seconds. A total of 0.4 milligrams of Lexiscan was infused. The stress phase was continued for a total of 5 minutes. Heart rate at the end of the stress phase was 74 with a blood pressure 134/85. The EKG at the peak infusion revealed no significant changes. Sestamibi was injected 20 seconds after the Lexiscan infusion. Blood pressure at the end of the recovery phase was 139/85 with a heart rate of 73 per minute. CONCLUSION: 1. No significant EKG changes with the LexiScan infusion 2. No LexiScan induced chest pain or cardiac arrhythmia 3. Normal blood pressure and heart rate response 4. Sestamibi/sestamibi perfusion scan pending; see separate report. Electronically Signed On 05-17-2021 0:32:50 CDT by Chiara Perez M.D. [id number]
--- NOTE | 2021-05-15 07:43 | NMCV_ITS ---
NM nurys perf SPECT r/s* [id number] Nicko Obrien Age: 55 Gender: M : 1965 Exam Date: 05/15/2021 08:19 Ordering Phys: Chiara Perez MD ([email or web address]) Technologist: LILY Buckley Exam Location: [facility] Indications: CHEST PAIN STRESS TEST Please see separate stress test report in [facility] for full findings IMAGE PROTOCOL Rest/Stress 1 Lexiscan Day Radiopharmaceutical Dose (mCi) Administration Site Administered by Rest: Tc-99m 10.6 IV LILY Davila Sestamibi Stress:Tc-99m 33.0 IV LILY Davila Sestamibi Rest: 15-May-2021 60 Discovery 630 Stress: 15-May-2021 30 Discovery 630 0.4mg Lexiscan. Images obtained in supine and prone position. SPECT RESULTS Technical Quality: Excellent Raw Data Analysis: Normal Image Corrections: No attenuation or motion correction applied Summed Stress Score: 0 Summed Rest Score: 0 Summed Difference Score: 0 PERFUSION FINDINGS Uniform myocardial tracer uptake. No significant perfusion abnormalities. FUNCTIONAL RESULTS (calculated via Gated SPECT) Stress Image LV EF (%): 67 Stress EDV (mL):123 TID: 1 Stress ESV (mL):41 FUNCTIONAL FINDINGS: Segmental wall motion analysis revealing no gross wall motion abnormalities IMPRESSIONS 1. Unremarkable myocardial perfusion imaging 2. Normal LV ejection fraction 67%. 3. LV wall motion analysis revealing no gross wall motion normalities. 4. Normal LV volume. No significant coronary ischemia, based on the above findings Dr Chiara Perez MD [facility] (Electronically Signed) Final Date: 15 May 2021 16:33 S
[2021-05-15] MEDS: regadenoson 0.4 Mg/5 ml Syringe IVP (09:00)
[2021-05-15 09:11] VITALS: BP 129/85; PULSE 73
== END 2021-05-15 07:23 | disposition home or self-care (01) ==
PROVIDERS: PCP Family Medicine; Visit Provider Internal Medicine Cardiovascular Disease
DX: R07.9 Chest pain, unspecified (principal)
CPT/HCPCS: 78452; 93017; A9500; J2785

== ENCOUNTER 2021-09-23 11:21 | Outpatient (CLI) | payer MEDICAID, SELFPAY ==
[2021-09-23 11:46] LABS: Basophils % 0.5 %; Eosinophils # 0.1 10^3/uL (0.0-0.8); Eosinophils % 2.7 %; Hematocrit 46.9 % (42.0-52.0); Hemoglobin 16.2 g/dL (11.7-16.6); Lymphocytes # 1.1 10^3/uL (0.8-4.8); Mean Corpuscular HGB Conc 34.5 g/dL (30.0-36.0); Mean Corpuscular Hemoglobin 30.8 pg (28.0-34.0); Mean Corpuscular Volume 89.2 fl (80-94); Mean Platelet Volume 10.1 fL (7.4-10.4); Monocytes # 0.4 10^3/uL (0.2-0.9); Monocytes % 9.8 %; Neutrophils # 2.08 10^3/uL (1.8-7.7); Neutrophils % 56.7 %; Nucleated Red Blood Cells % 0 %; Platelet Count 112 10^3/cmm (130-400); Red Blood Count 5.26 10^6/uL (4.1-5.3); Red Cell Distribution Width 12.8 % (12.1-15.1); White Blood Count 3.7 10^3/uL (4.0-10.0)
[2021-09-23 12:05] LABS: Alanine Aminotransferase 19 U/L (0-41); Albumin Level 4.4 g/dL (3.5-5.2); Alkaline Phosphatase 132 IU/L (40-130); Anion Gap 16.1 (5-19); Aspartate Amino Transferase 28 U/L (0-40); Blood Urea Nitrogen 10 mg/dL (6-20); Calcium 8.8 mg/dL (8.5-10.5); Carbon Dioxide 24 mmol/L (22-29); Chloride 104 mmol/L (98-107); Globulin 2.9 g/dL (1.3-4.6); Glomerular Filtration Rate 172.6 mL/min (90-130); Glucose 97 mg/dL (65-115); Osmolality Calculated 289 mOsm/kg (285-295); Potassium 4.1 mmol/L (3.5-5.1); Sodium 140 mmol/L (136-145); Total Bilirubin 0.5 mg/dL (0.15-1.2); Total Protein 7.3 g/dL (6.6-8.7)
[2021-09-23 12:40] LABS: Hepatitis A Antibody IgM Non-Reactive (Nonreactive); Hepatitis B Core AB, Total Non-Reactive (Nonreactive); Hepatitis B Surface Antigen Non-Reactive (Nonreactive); Hepatitis C Virus Antibody Non-Reactive (Nonreactive)
[2021-09-23 12:48] LABS: Hepatitis B Surface AB < 3.5 (11.5-1000)
[2021-09-23 14:16] LABS: HIV 1 & 2 Antibody Non-Reactive (Non-Reactiv); HIV 1 & 2 Antigen Non-Reactive (Non-Reactiv)
[2021-09-25 14:16] LABS: Quantiferon Mitogen 8.87 IU/mL; Quantiferon Nil 0.02 IU/mL; Quantiferon TB Gold NEGATIVE (NEGATIVE)
== END 2021-09-23 11:22 | disposition home or self-care (01) ==
PROVIDERS: PCP Family Medicine; Visit Provider Dermatology
DX: Z79.899 Other long term (current) drug therapy (principal)
CPT/HCPCS: 36415; 80053; 85025; 86480; 86705; 86706; 86709; 86803; 87340; 87806

== ENCOUNTER → 2021-09-24 09:05 | Outpatient (BNVA) | payer MEDICAID, SELFPAY | PROVIDERS: PCP Family Medicine; Visit Provider Podiatrist Foot & Ankle Surgery | DX: S99.921A Unspecified injury of right foot, initial encounter (principal) | CPT/HCPCS: 73630 ==

== ENCOUNTER → 2022-04-24 10:08 | Outpatient (BNVA) | payer MEDICAID, SELFPAY | PROVIDERS: PCP Family Medicine; Visit Provider Internal Medicine Cardiovascular Disease | DX: R07.89 Other chest pain (principal); E78.5 Hyperlipidemia, unspecified; I10 Essential (primary) hypertension; E11.9 Type 2 diabetes mellitus without complications; Z79.84 Long term (current) use of oral hypoglycemic drugs; Z86.73 Personal history of transient ischemic attack (TIA), and cerebral infarction without residual deficits | CPT/HCPCS: 99214 ==

== ENCOUNTER 2022-09-09 14:18 | Outpatient (CLI) | payer MEDICAID, SELFPAY ==
--- NOTE | 2022-09-09 | USCV_ITS ---
Nicko Obrien Age: 57 Gender: M : 1965 Exam Date: 09/09/2022 14:56 Ordering Phys: Chiara Perez MD ([email or web address]) Technologist: VARUN [place]am [place] [facility] [place] [facility] [place] Indication: CHEST PAIN AND SHORTNESS OF BREATH BP: 110 / 69 HR: 69 Rhythm: Sinus Technical Quality: Adequate MEASUREMENTS (Male / Female) Normal Values 2D ECHO LVOT Diameter 2.0 cm LV Ejection Fraction MOD 2C 67.3 % LV Ejection Fraction 2C AL 69.5 % LA Diameter 2.6 cm LA Width 3.7 cm LA Height 5.3 cm RA Width 4.2 cm RA Height 5.2 cm Aorta at Sinotubular Diameter 2.5 cm IVC Diameter 1.9 cm M-MODE Aortic Annulus Diameter 3.0 cm LA Ao Ratio MM 0.6 MV E Point Septal Separation 0.2 cm DOPPLER AV Peak Velocity 165.0 cm/s LVOT Peak Velocity 123.0 cm/s AV Area Cont Eq vti 2.7 cm squared AV Area Cont Eq pk 2.4 cm squared MV Peak Velocity 106.0 cm/s MV Area PHT 2.9 cm squared Mitral E to A Ratio 0.9 MV E' Velocity 46.5 cm/s Mitral E to MV E' Ratio 8.1 Mitral E to LV E' Lateral Ratio 7.1 Mitral E to LV E' Septal Ratio 9.3 TR Peak Velocity 251.3 cm/s TR Peak Gradient 25.3 mmHg TR Mean Velocity 217.5 cm/s TR Mean Gradient 19.1 mmHg TR Velocity Time Integral 71.6 cm TV Peak E Velocity 55.0 cm/s Right Atrial Pressure 3.0 mmHg Pulmonary Artery Systolic Pressu 28.3 mmHg PV Peak Velocity 103.0 cm/s RV Acceleration Time 0.1 s RV Ejection Time 0.3 s RV AcT/ET 0.4 FINDINGS Left Ventricle Normal left ventricular size and systolic function, EF 67 %. No regional wall motion abnormalities. Mild left ventricular hypertrophy. Grade I/IV diastolic dysfunction (abnormal relaxation filling pattern), normal to mildly elevated filling pressures. Right Ventricle The right ventricle is normal in size and function. Right Atrium The right atrium is normal in size. Left Atrium The left atrium is normal in size. Mitral Valve No gross abnormalities noted Aortic Valve No gross abnormalities noted Tricuspid Valve Trace tricuspid valve regurgitation. Estimated pulmonary artery peak systolic pressure of 28 mmHg. Pulmonic Valve No gross abnormalities noted Pericardium Normal pericardium without effusion. Aorta Normal ascending aorta dimension. IVC Normal inferior vena cava. CONCLUSIONS Normal left ventricular size and systolic function, EF 67 %. No regional wall motion abnormalities. Mild left ventricular hypertrophy. Grade I/IV diastolic dysfunction (abnormal relaxation filling pattern), normal to mildly elevated filling pressures. Trace tricuspid valve regurgitation. Estimated pulmonary artery peak systolic pressure of 28 mmHg. There is no pericardial effusion. There are no intracardiac masses. Compared to the previous study from 04/29/2017, there may not be significant change Dr Chiara Perez MD FAC (Electronically Signed) Final Date: 10 September 2022 20:29 S
== END 2022-09-09 14:19 | disposition home or self-care (01) ==
LOC: RAD 14:20
PROVIDERS: PCP Family Medicine; Visit Provider Internal Medicine Cardiovascular Disease
DX: R07.9 Chest pain, unspecified (principal); R06.02 Shortness of breath; I07.1 Rheumatic tricuspid insufficiency
CPT/HCPCS: 93306

== ENCOUNTER 2023-04-13 11:38 | Outpatient (CLI) | payer MEDICAID, SELFPAY ==
[2023-04-13 12:51] LABS: Basophils % 0.7 %; Eosinophils # 0.1 10^3/uL (0.0-0.8); Eosinophils % 4.3 %; Hematocrit 43.6 % (42.0-52.0); Lymphocytes # 0.9 10^3/uL (0.8-4.8); Lymphocytes % 30.8 %; Mean Corpuscular HGB Conc 34.4 g/dL (30.0-36.0); Mean Corpuscular Hemoglobin 30.8 pg (28.0-34.0); Mean Corpuscular Volume 89.5 fl (80-94); Mean Platelet Volume 9.9 fL (7.4-10.4); Monocytes # 0.3 10^3/uL (0.2-0.9); Monocytes % 11.4 %; Neutrophils # 1.57 10^3/uL (1.8-7.7); Neutrophils % 52.5 %; Nucleated Red Blood Cells % 0 %; Platelet Count 87 10^3/cmm (130-400); Red Blood Count 4.87 10^6/uL (4.1-5.3)
[2023-04-13 13:09] LABS: Alanine Aminotransferase 22 U/L (0-41); Albumin Level 3.9 g/dL (3.5-5.2); Alkaline Phosphatase 91 U/L (40-130); Anion Gap 10.9 (5-19); Aspartate Amino Transferase 31 U/L (0-40); Blood Urea Nitrogen 6 mg/dL (6-20); Calcium 9.2 mg/dL (8.5-10.5); Carbon Dioxide 24 mmol/L (22-29); Chloride 102 mmol/L (98-107); Globulin 2.6 g/dL (1.3-4.6); Glucose 152 mg/dL (65-115); Osmolality Calculated 277 mOsm/kg (285-295); Potassium 3.9 mmol/L (3.5-5.1); Sodium 133 mmol/L (136-145); Total Bilirubin 0.9 mg/dL (0.15-1.2); Total Protein 6.5 g/dL (6.6-8.7)
[2023-04-13 13:36] LABS: Hepatitis C Virus Antibody Non-Reactive (Nonreactive)
[2023-04-13 13:43] LABS: Hepatitis B Core AB, Total Non-Reactive (Nonreactive); Hepatitis B Surface Antigen Non-Reactive (Nonreactive)
[2023-04-13 13:44] LABS: Hepatitis B Surface AB < 3.5 (11.5-1000)
== END 2023-04-13 11:39 | disposition home or self-care (01) ==
LOC: LAB 11:44
PROVIDERS: PCP Family Medicine; Visit Provider Nurse Practitioner Family
DX: L40.0 Psoriasis vulgaris (principal)
CPT/HCPCS: 36415; 80048; 80076; 85025; 86704; 86706; 86803; 87340

== ENCOUNTER 2023-04-22 10:38 | Observation (INO) | payer MEDICAID, SELFPAY ==
[2023-04-22] VITALS (11 sets, daily range): BP systolic 90–121; BP diastolic 64–83; PULSE 58–73; RESP 17–18; TEMP 36.4–36.9; O2SAT 92–97
[2023-04-22 10:55] LABS: Glucose Point of Care 199 mg/dL (70-110)
--- NOTE | 2023-04-22 11:37 | CT_ITS ---
WS: [id number] CT HEAD NONCONTRAST HISTORY: near syncope with dizziness TECHNIQUE: Contiguous axial imaging performed through the brain in 2.5 mm imaging. Bone and soft tiss ue windows. Sagittal and coronal reformats reviewed. All CT scans at [facility] use at least one of these dose optimization techniques: automated exposure control; mA and/or kV adjustment per pa tient size (includes targeted exams where dose is matched to clinical indication); or iterative recon struction. DLP: 1093.99 mGy.cm COMPARISON: 10/31/2019 No acute intracranial hemorrhage, midline shift or mass effect. No atrophy or prior infarcts or herniation. Ventricles: Normal size with no hydrocephalus. No inferior displacement of cerebellar tonsils. Paranasal sinuses: As visualized are clear. Mastoid air cells: Well pneumatized. Calvarium and scalp: Skull is intact with no soft tissue edema or swelling. CT/CT head wo con* [id number] IMPRESSION: Negative head CT.
--- NOTE | 2023-04-22 11:37 | XR_ITS ---
WS: [id number] Portable AP upright chest, 04/22/2023 Clinical Data: near syncope improved Comparison: Portable chest, 12/13/2020 Findings: No nodules, masses or effusions are seen. The heart is normal. The pulmonary vascularity is not increased. No pneumonia or pneumothorax is seen. Monitor leads are on the chest wall. There is a minimal dextroscoliosis of the midthoracic spine. XR/XR chest 1V portable [id number] Impression: Negative chest.
--- NOTE | 2023-04-22 11:40 | ECG_ITS ---
[facility] Test Date: 2023-04-22 Pat Name: Nicko Obrien Department: Room: Gender: Male Scale Agent: : 1965 Requested By: Jeff Schofield Order Number: [id number] Lindsay MD: Chiara Perez M.D. Measurements Intervals [place] Rate: 61 P: 47 NV: 190 QRS: 14 QRSD: 90 T: 43 QT: 425 QTc: 431 Interpretive Statements SINUS RHYTHM Compared to ECG 12/13/2020 16:38:29 Sinus tachycardia no longer present Electronically Signed On 04-22-2023 23:23:46 CDT by Chiara Perez M.D. [id number]
--- NOTE | 2023-04-22 11:49 | ED_ITS ---
HPI - Dizziness General: Chief Complaint: Dizziness Stated Complaint: dizzy, disoriented Time Seen by Provider: 04/22/23 11:12 History of Present Illness: HPI Narrative: 57-year-old male presents to the emergency department chief complaint of having dizziness and near syncope while driving his car. In route to his appointment he had not had any breakfast prior to this event. The reports that they were going to need on the highway speeds in which she was all over the road in which she eventually pulled over the patient reports that he drank some soda in which his symptoms continue to improve when she just feels this fatigue per the as well as her he reported having no chest pain or shortness of breath associated with these symptoms which her reports she would not have any focal weakness or numbness. The patient presents to the ER for further assessment and management. Associated symptoms: Denies chest pain, chills, headache(s), malaise, nausea, palpitations or vomiting Review of Systems General: Reports: 10 or more systems reviewed and unremarkable except in HPI and below Const: Denies: fever(s), chills, fatigue or malaise Eyes: Denies: change in vision or blurry vision Card: Denies: chest pain or palpitations Resp: Denies: dyspnea or productive cough GI: Denies: abdominal pain, nausea or vomiting : Denies: flank pain Musc: Denies: extremity pain or extremity swelling Skin/Breast: Denies: rash or pruritus Neuro: Reports: dizziness and vertigo; Denies: headache(s) Psych: Denies: anxiety or depression Jayson/Lymph: Denies: easy bleeding All/Imm: Denies: urticaria, throat swelling or facial swelling PFS ED PFSH: Medical History COPD (chronic obstructive pulmonary disease) Depression Diabetes mellitus, type II Diastasis recti Dyslipidemia Gastroesophageal reflux Hammertoe, bilateral Hiatal hernia Hypertension Migraine Sleep apnea TIA (transient ischemic attack) Had several episodes , most recent one was in Aug. Has Migraine head ache Surgical History H/O esophagogastroduodenoscopy (~12/06/19) Gastritis H/O hernia repair History of carpal tunnel release Left History of carpal tunnel surgery of right wrist History of thumb surgery Status post colonoscopy (~12/06/19) AVMs ascending colon Family History Mother CAD (coronary artery disease) Stroke Sister CAD (coronary artery disease) Cancer Diabetes Brother CAD (coronary artery disease) Family/Other Cancer Diabetes Grandmother Diabetes Father Lung disease Denies family history of Clotting disorder Dementia Chronic kidney disease (CKD) Suicide Anesthesia complication Bleeding disorder Social History Smoking and tobacco status: never smoked Alcohol intake: former Substance/Drug Use: never Lives independently: Yes Household members: spouse Physical Exam Narrative: EXAM NARRATIVE: Patient appears nontoxic appears no obvious acute distress no obvious nystagmus appreciated exam patient reports generalized weakness with no current dizziness or vertigo Const: COMMON NORMALS: no acute distress, patient oriented x3 and healthy appearing HENMT: COMMON NORMALS: normocephalic and atraumatic HEAD & SCALP: normocephalic and atraumatic Eye: COMMON NORMALS: Equal, round and reactive pupils present and EOMs intact bilaterally PUPIL: Yes Equal, round and reactive pupils present Neck/C-Spine: COMMON NORMALS: full ROM, supple and no JVD Lymph: LYMPHATIC: no lymphadenopathy noted Chest: COMMONS NORMALS: normal inspection of the chest and normal palpation of entire chest wall Resp: COMMON NORMALS: normal respiratory effort, No retractions and clear to auscultation bilaterally EFFORT & INSPECTION: Yes able to speak in complete sentences and Yes symmetric chest movement AUSCULTATION: clear to auscultation bilaterally Cardio: COMMON NORMALS: no JVD, regular rate and regular rhythm RATE: regular rate RHYTHM: regular rhythm GI: COMMON NORMALS: Normal to inspection, nondistended, normoactive bowel sounds present, Soft to palpation and non-tender INSPECTION: Yes normal to inspection PALPATION: Yes Soft to palpation : COMMON NORMALS: Yes no CVA tenderness BLADDER/KIDNEY EXAM: Yes no CVA tenderness Back/Pelvis: COMMON NORMALS: no CVA tenderness Extremity: COMMON NORMALS: normal to inspection and full ROM Neuro: COMMON NORMALS: patient oriented x3, CN's II-XII intact bilaterally, moves all extremities and no focal motor deficits Psych: COMMON NORMALS: mental status grossly normal, Normal thought process present, cooperative and normal affect THOUGHT PROCESS: Normal thought process present Skin: COMMON NORMALS: no rashes or lesions noted GENERAL SKIN EXAM: no rashes or lesions noted Course Vital Signs: Vital signs: Vital Signs Temperature 97.9 F 04/22/23 10:47 Pulse Rate 60 04/22/23 14:30 Respiratory Rate 18 04/22/23 14:30 Blood Pressure 100/70 04/22/23 14:30 Pulse Oximetry 96 04/22/23 14:30 Oxygen Delivery Me thod Room Air 04/22/23 14:30 MDM - Dizziness Medical Decision Making Due to patient's symptoms condition cardiac and neuro work-up will be obtained we will continue to follow. Upon talking to the patient and at length underlying concerns of possible and probable hypoglycemic event most likely contribute to his current symptoms we will continue to follow. and Patient's lab work revealed hyperammonia anemia with ammonia level of 83 patient also was found to be leukopenic and thrombocytopenic do this influenza COVID swabs were obtained that came back negative patient has been complaining of generalized weakness upon further investigation the patient had remark having a tick bite in the past 1 week but does not report any recent fevers we will be treating for tickborne disease due to patient's confusion and hyperammonia. Discussed patient's case with that has granted acceptance observation overnight. Lab Data 04/22/23 11:27 04/22/23 11:27 Radiology Impressions Chest X-Ray 04/22/23 11:37 Impression: Negative chest. Head CT 04/22/23 11:37 IMPRESSION: Negative head CT. Laboratory Results WBC 2.9 10^3/uL (4.0-10.0) L 04/22/23 11:27 RBC 4.60 10^6/uL (4.1-5.3) 04/22/23 11:27 Hgb 14.4 g/dL (11.7-16.6) 04/22/23 11:27 Hct 41.8 % (42.0-52.0) L 04/22/23 11:27 MCV 90.9 fl (80-94) 04/22/23 11:27 MCH 31.3 pg (28.0-34.0) 04/22/23 11: MCHC 34.4 g/dL (30.0-36.0) 04/22/23 11:27 RDW 15.0 % (12.1-15.1) 04/22/23 11:27 Plt Count 78 10^3/cmm (130-400) L 04/22/23 11:27 MPV 10.4 fL (7.4-10.4) 04/22/23 11:27 Neut % (Auto) 47.1 % 04/22/23 11:27 Lymph % (Auto) 34.5 % 04/22/23 11:27 [place] % (Auto) 15.4 % 04/22/23 11:27 Eos % (Auto) 2.4 % 04/22/23 11:27 Baso % (Auto) 0.3 % 04/22/23 11:27 Neut # (Auto) 1.38 10^3/uL (1.8-7.7) L 04/22/23 11:27 Lymph # (Auto) 1.0 10^3/uL (0.8-4.8) 04/22/23 11:27 [place] # (Auto) 0.5 10^3/uL (0.2-0.9) 04/22/23 11:27 Eos # (Auto) 0.1 10^3/uL (0.0-0.8) 04/22/23 11:27 Baso # (Auto) 0.0 10^3/uL (0.0-0.1) 04/22/23 11:27 Nucleated RBC % (auto) 0 % 04/22/23 11:27 Nucleated RBCs # 0.0 /100WBC 04/22/23 11:27 Sodium 137 mmol/L (136-145) 04/22/23 11:27 Potassium 4.1 mmol/L (3.5-5.1) 04/22/23 11:27 Chloride 105 mmol/L (98-107) 04/22/23 11:27 Carbon Dioxide 24 mmol/L (22-29) 04/22/23 11:27 Anion Gap 12.1 (5-19) 04/22/23 11:27 BUN 8 mg/dL (6-20) 04/22/23 11:27 Creatinine 0.6 mg/dL (0.7-1.2) L 04/22/23 11:27 GFR Calculation 139.4 mL/min (90-130) H 04/22/23 11:27 Glucose 188 mg/dL (65-115) H 04/22/23 11:27 POC Glucose 199 mg/dL (70-110) H 04/22/23 10:52 Calculated Osmolality 287 mOsm/kg (285-295) 04/22/23 11:27 Calcium 8.6 mg/dL (8.5-10.5) 04/22/23 11:27 Total Bilirubin 0.7 mg/dL (0.15-1.2) 04/22/23 11:27 AST 23 U/L (0-40) 04/22/23 11:27 ALT 19 U/L (0-41) 04/22/23 11:27 Alkaline Phosphatase 89 U/L (40-130) 04/22/23 11:27 Ammonia 83 umol/L (16-60) H 04/22/23 11:27 Troponin T Baseline 10 ng/L (0-15) 04/22/23 11:27 Troponin T 120 Minute 9.65 ng/L (0-15) 04/22/23 13:33 Delta Troponin T -0.35 ABS# (0-10) L 04/22/23 13:33 C-Reactive Protein 3.3 mg/L (0.0-4.9) 04/22/23 11:27 NT-Pro-B Natriuret Pep 36 pg/mL (0-125) 04/22/23 11:27 Total Protein 5.7 g/dL (6.6-8.7) L 04/22/23 11:27 Albumin 3.6 g/dL (3.5-5.2) 04/22/23 11:27 Globulin 2.1 g/dL (1.3-4.6) 04/22/23 11:27 Urine Color Yellow (Yellow) 04/22/23 13:11 Urine Appearance Clear (CLEAR) 04/22/23 13:11 Urine pH 5 (5-7) 04/22/23 13:11 Ur Specific [place] 1.020 (1.005-1.030) 04/22/23 13:11 Urine Protein Neg (Negative) 04/22/23 13:11 Urine Glucose (UA) 4+ (Normal) H 04/22/23 13:11 Urine Ketones Negative (Negative) 04/22/23 13:11 Urine Blood Neg (Negative) 04/22/23 13:11 Urine Nitrate Negative (Negative) 04/22/23 13:11 Urine Bilirubin 2+ (Negative) H 04/22/23 13:11 Urine Urobilinogen Norm mg/dL (Negative) 04/22/23 13:11 Ur Leukocyte Esterase Negative (Negative) 04/22/23 13:11 Urine Opiates Screen Positive ng/mL (Negative) H 04/22/23 13:11 Ur Barbiturates Screen Negative ng/mL (Negative) 04/22/23 13:11 Ur Phencyclidine Scrn Negative ng/mL (Negative) 04/22/23 13:11 Ur Amphetamines Screen Negative ng/mL (Negative) 04/22/23 13:11 U Benzodiazepines Scrn Negative ng/mL (Negative) 04/22/23 13:11 Urine Cocaine Screen Negative ng/mL (Negative) 04/22/23 13:11 U Marijuana (THC) Screen Negative ng/mL (Negative) 04/22/23 13:11 Coronavirus 229E (PCR) Not detected (NOT DETECT) 04/22/23 12:18 Influenza Type A Ag negative (Negative) 04/22/23 12:18 Influenza Type B Ag negative (Negative) 04/22/23 12:18 SARS-CoV-2 (PCR) Not detected (NOT DETECT) 04/22/23 12:18 Discharge Plan Discharge Patient Disposition: Admitted As Inpatient Clinical Impression: Hyperammonemia, Acute alteration in mental status, 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
[2023-04-22] MEDS: sodium chloride 0.9% 500 ML IV (11:53)
[2023-04-22] MEDS: ondansetron 2 mg/ML SDV 2 mL 4 MG IVP (11:53)
[2023-04-22] MEDS: meclizine 25 mg tablet 50 MG PO (11:53)
[2023-04-22 12:01] LABS: Basophils % 0.3 %; Eosinophils # 0.1 10^3/uL (0.0-0.8); Eosinophils % 2.4 %; Hematocrit 41.8 % (42.0-52.0); Hemoglobin 14.4 g/dL (11.7-16.6); Lymphocytes % 34.5 %; Mean Corpuscular HGB Conc 34.4 g/dL (30.0-36.0); Mean Corpuscular Hemoglobin 31.3 pg (28.0-34.0); Mean Corpuscular Volume 90.9 fl (80-94); Mean Platelet Volume 10.4 fL (7.4-10.4); Monocytes # 0.5 10^3/uL (0.2-0.9); Monocytes % 15.4 %; Neutrophils # 1.38 10^3/uL (1.8-7.7); Neutrophils % 47.1 %; Nucleated Red Blood Cells % 0 %; Platelet Count 78 10^3/cmm (130-400); White Blood Count 2.9 10^3/uL (4.0-10.0)
[2023-04-22 12:08] LABS: Troponin(5th) Baseline 10 ng/L (0-15)
[2023-04-22 12:18] LABS: Alanine Aminotransferase 19 U/L (0-41); Albumin Level 3.6 g/dL (3.5-5.2); Alkaline Phosphatase 89 U/L (40-130); Anion Gap 12.1 (5-19); Aspartate Amino Transferase 23 U/L (0-40); Blood Urea Nitrogen 8 mg/dL (6-20); C Reactive Protein 3.3 mg/L (0.0-4.9); Calcium 8.6 mg/dL (8.5-10.5); Carbon Dioxide 24 mmol/L (22-29); Chloride 105 mmol/L (98-107); Globulin 2.1 g/dL (1.3-4.6); Glomerular Filtration Rate 139.4 mL/min (90-130); Glucose 188 mg/dL (65-115); NT Pro B Type Natriuretic Pept 36 pg/mL (0-125); Osmolality Calculated 287 mOsm/kg (285-295); Potassium 4.1 mmol/L (3.5-5.1); Sodium 137 mmol/L (136-145); Total Bilirubin 0.7 mg/dL (0.15-1.2); Total Protein 5.7 g/dL (6.6-8.7)
[2023-04-22 12:25] LABS: Ammonia 83 umol/L (16-60)
[2023-04-22 12:42] LABS: Influenza A by IFA negative (Negative); Influenza B by IFA negative (Negative)
[2023-04-22] MEDS: lactulose oral liq 20 gm/30 mL UDC 30 GM PO ×2 (13:06→21:59)
[2023-04-22 13:17] LABS: Add Urine Microscopic? NO; Charge for UA Resulting for Rev
[2023-04-22 13:20] LABS: Bilirubin Urine 2+ (Negative); Blood Urine Neg (Negative); Glucose Urine UA 4+ (Normal); Ketones Urine Negative (Negative); Leukocyte Esterase Urine Negative (Negative); Nitrate Urine Negative (Negative); Protein Urine Neg (Negative); Urine Appearance Clear (CLEAR); Urine Color Yellow (Yellow); Urobilinogen Urine Norm (Negative); pH Urine 5 (5-7)
[2023-04-22 13:27] LABS: Amphetamines Screen Urine Negative (Negative); Barbiturates Screen Urine Negative (Negative); Benzodiazepines Screen Urine Negative (Negative); Cocaine Screen Urine Negative (Negative); Opiate Screen Urine Positive (Negative); PCP Screen Urine Negative (Negative); THC Screen Urine Negative (Negative)
--- NOTE | 2023-04-22 13:46 | ECG_ITS ---
[facility] Test Date: 2023-04-22 Pat Name: Nicko Obrien Department: Room: Gender: Male Spanish Language Lecturer: : 1965 Requested By: Jeff Schofield Order Number: [id number] Lindsay MD: Chiara Perez M.D. Measurements Intervals [place] Rate: 63 P: 59 IA: 189 QRS: 16 QRSD: 94 T: 57 QT: 442 QTc: 454 Interpretive Statements SINUS RHYTHM Compared to ECG 04/22/2023 11:45:51 No significant changes Electronically Signed On 04-22-2023 23:33:03 CDT by Chiara Perez M.D. [id number]
[2023-04-22 14:09] LABS: Adenovirus Not Detected (NOT DETECT); Chlamydia Pneumoniae Not Detected (NOT DETECT); Coronavirus 229E,HKU1,NL63,OC4 Not Detected (NOT DETECT); Human Metapneumovirus Not Detected (NOT DETECT); Human Rhinovirus/Enterovirus Not Detected (NOT DETECT); Influenza A Not Detected (NOT DETECT); Influenza A H1 Not Detected (NOT DETECT); Influenza A H1-2009 Not Detected (NOT DETECT); Influenza A H3 Not Detected (NOT DETECT); Influenza B Not Detected (NOT DETECT); Mycoplasma Pneumoniae Not Detected (NOT DETECT); Parainfluenza Virus Type 1 Not Detected (NOT DETECT); Parainfluenza Virus Type 2 Not Detected (NOT DETECT); Parainfluenza Virus Type 3 Not Detected (NOT DETECT); Parainfluenza Virus Type 4 Not Detected (NOT DETECT); Respiratory Syncytial Virus A Not Detected (NOT DETECT); Respiratory Syncytial Virus B Not Detected (NOT DETECT); SARS-COV-2 Not Detected (NOT DETECT)
[2023-04-22 14:23] LABS: Troponin 5 2HR 9.65 ng/L (0-15)
[2023-04-22 14:24] LABS: Troponin 5 2HR Delta -0.35 ABS# (0-10)
--- NOTE | 2023-04-22 15:46 | PC.PHAR ---
pts verified pts medications-pts states the pt takes losartan 50mg hs [facility] states they havent filled losartan for the pt-
[2023-04-22] MEDS: doxycycline 100 MG in sodium chloride 0.9% (plus) 100 ML IV (16:25)
--- NOTE | 2023-04-22 17:40 | ECG_ITS ---
[facility] Test Date: 2023-04-22 Pat Name: Nicko Obrien Department: Room: 276 Gender: Male Car Shagger: : 1965 Requested By: Jeff Schofield Order Number: [id number] Lindsay MD: Chiara Perez M.D. Measurements Intervals [place] Rate: 61 P: 35 NV: 176 QRS: 29 QRSD: 94 T: 59 QT: 437 QTc: 441 Interpretive Statements SINUS RHYTHM Compared to ECG 04/22/2023 13:46:21 No significant changes Electronically Signed On 04-22-2023 23:37:42 CDT by Chiara Perez M.D. [id number]
--- NOTE | 2023-04-22 18:17 | PM.HP ---
Providers/Chief Complaint Admitting Physician: Javi Castillo DO Primary Care Provider: Luis Fernando Rhodes Chief Complaint: dizzy, disoriented History of Present Illness Nicko Obrien is a 57 year old male was in his usual state of health when he was driving his to a doctor's appointment. He states that he was swerving like he was drunk. He denies feeling sleepy but he states that he could not control the car and did not feel right. Did out in the car while she was at the doctor's office and slept. And he drove again the same thing happened. He states this feeling resolved after he was in the emergency department for a while. Have an ammonia level over 80. His labs are consistent with a tick bite. Which he reports. He is placed in observation for lactulose and doxycycline. Review of Systems Const: Denies: fever(s) or chills Eyes: Denies: change in vision, blurry vision or blind spots ENMT: Denies: throat pain or nasal congestion Card: Denies: chest pain or palpitations Resp: Denies: dyspnea or productive cough GI: Reports: abdominal pain (daily, reports secondary to mess from hernia repair); Denies: nausea, vomiting or change in stool character : Reports: hematuria; Denies: difficulty urinating or dysuria Musc: Denies: back pain or extremity pain Skin/Breast: Denies: rash or lesions Neuro: Reports: headache(s) (daily, from old stroke he reports); Denies: dizziness Psych: Denies: anxiety or depression Jayson/Lymph: Denies: easy bruising or easy bleeding Medications/Allergies Home Medications Medication Instructions Recorded Confirmed Last Taken Type aspirin 81 mg tablet,delayed 81 mg PO BEDTIME 10/06/19 04/22/23 12/12/20 History release (Adult Low Dose Aspirin) pantoprazole 40 mg tablet,delayed 40 mg PO BEDTIME 10/06/19 04/22/23 12/12/20 History release venlafaxine 150 mg 150 mg PO BEDTIME 10/06/19 04/22/23 12/12/20 History capsule,extended release 24 hr (Effexor XR) tamsulosin 0.4 mg capsule 0.8 mg PO BEDTIME 03/06/20 04/22/23 Unknown History losartan 50 mg tablet 50 mg PO BEDTIME 03/13/20 04/22/2321 History Diabetic Shoes #1 ea 08/28/20 04/22/23 Unknown Rx Diabetic Shoes #1 ea 09/25/20 04/22/23 Unknown Rx albuterol sulfate 90 mcg/actuation 2 puff inhalation Q4H PRN 12/13/20 04/22/23 Unknown History aerosol inhaler (ProAir HFA) Shortness Of Breath cyclobenzaprine 10 mg tablet 10 mg PO BID PRN Muscle Spasm 12/13/20 04/22/23 Unknown History empagliflozin 25 mg tablet 25 mg PO BEDTIME 12/13/20 04/22/23 12/12/20 History (Jardiance) gabapentin 300 mg capsule 300 mg PO BID 12/13/20 04/22/23 12/12/20 History lovastatin 20 mg tablet 20 mg PO BEDTIME 12/13/20 04/22/23 12/12/20 History Diabetic shoes with 3 inserts #1 ea 02/07/21 04/22/23 Unknown Rx Custom molded inserts #1 ea 09/24/21 04/22/23 Unknown Rx ferrous sulfate 325 mg (65 mg 325 mg PO EVERY OTHER DAY 04/24/22 04/22/23 04/21/23 History iron) tablet carvedilol 3.125 mg tablet 3.125 mg PO BID #180 tabs 09/23/22 04/22/23 Unknown Rx Diabetic Shoes with 3 pairs of #1 ea 01/27/23 04/22/23 Unknown Rx inserts acetaminophen 500 mg tablet 1,000 mg PO Q6H PRN Pain 04/22/23 04/22/23 Unknown History amitriptyline 50 mg tablet 50 mg PO BEDTIME 04/22/23 04/22/23 Unknown History vncucjocrq-zebnrytrzeecv-liijonnl 1 tab PO Q4H PRN Migraine Headache 04/22/23 04/22/23 Unknown History 50 mg-325 mg-40 mg tablet hydrocodone 5 mg-acetaminophen 325 1 tab PO BEDTIME PRN pain 04/22/23 04/22/23 Unknown History mg tablet ixekizumab 80 mg/mL subcutaneous 80 mg SUBCUT Q30D 04/22/23 04/22/23 Unknown History auto-injector (Taltz Autoinjector) metformin 1,000 mg tablet,extended 1,000 mg PO BID 04/22/23 04/22/23 Unknown History release 24hr tizanidine 4 mg tablet 4 mg PO Q8H PRN Muscle Spasm 04/22/23 04/22/23 Unknown History trazodone 150 mg tablet 150 mg PO BEDTIME 04/22/23 04/22/23 Unknown History Allergies Allergy/AdvReac Type Severity Reaction Status Date / Time bee pollen Allergy Unknown swelling Verified 04/22/23 10:56 strawberry Allergy Unknown shortness Verified 04/22/23 10:56 of breath iodine Allergy ADR/ALGY-Flushing/difficulty Verified 04/22/23 10:56 breathing kiwi Allergy unknown Verified 04/22/23 10:56 Penicillins Allergy ALGY-Rash Verified 04/22/23 10:56 PFSH Acute PFSH: Medical History COPD (chronic obstructive pulmonary disease) Depression Diabetes mellitus, type II Diastasis recti Dyslipidemia Gastroesophageal reflux Hammertoe, bilateral Hiatal hernia Hypertension Migraine Sleep apnea TIA (transient ischemic attack) Had several episodes , most recent one was in Aug. Has Migraine head ache Surgical History H/O esophagogastroduodenoscopy (~12/06/19) Gastritis H/O hernia repair History of carpal tunnel release Left History of carpal tunnel surgery of right wrist History of thumb surgery Status post colonoscopy (~12/06/19) AVMs ascending colon Family History Mother CAD (coronary artery disease) Stroke Sister CAD (coronary artery disease) Cancer Diabetes Brother CAD (coronary artery disease) Family/Other Cancer Diabetes Grandmother Diabetes Father Lung disease Denies family history of Clotting disorder Dementia Chronic kidney disease (CKD) Suicide Anesthesia complication Bleeding disorder Social History Smoking and tobacco status: never smoked Alcohol intake: former Substance/Drug Use: never Lives independently: Yes Household members: spouse Vitals/I&O/Wt Last Vital Signs Temp 97.7 F 04/22/23 18:12 Pulse 63 04/22/23 18:12 Resp 18 04/22/23 18:12 BP 116/69 04/22/23 18:12 Pulse Ox 96 04/22/23 18:12 O2 Del Method Room Air 04/22/23 18:12 04/22/23 04/22/23 04/22/23 06:59 14:59 22:59 Intake Total 500 / 500 100 / 600 Balance 500 / 500 100 / 600 Weight last 48 hrs Weight 99.79 kg Physical Exam Narrative: Patient is a 57-year-old male appears older than stated age. He is in no acute distress at time of examination Neurologic alert and oriented x3 nonfocal exam NIHSS of 0 Psychiatric: Patient with a very flat affect soft-spoken no hallucinations SI or HI HEENT head is normocephalic atraumatic pupils equal round and reactive to light and accommodation extraocular muscles are intact there is no scleral icterus mucous membranes are moist and pink without lesions or exudates neck is supple no JVD carotid bruits or lymphadenopathy Cardiac: Normal S1-S2 without murmurs clicks gallops or rubs Lungs: Normal breath sounds no wheezes rales or rhonchi Abdomen: Soft mild diffuse tenderness normal active bowel sounds no hepatosplenomegaly Extremities trace edema in the anterior shins bilaterally Skin: No lesions or rashes noted Data 04/22/23 11:27 04/22/23 11:27 Micro: Microbiology 04/22/23 15:57 Blood Culture - Preliminary Blood SPECIMEN COLLECTED 04/22/23 15:57 Blood Culture - Preliminary Blood SPECIMEN COLLECTED Other data: Ammonia level 83 A&P Assessment and plan (1) Acute alteration in mental status: Given the ammonia level of 83 and no prior results suspect a mild case of hepatic encephalopathy. He will be treated with lactulose 30 g 3 times daily. Repeat ammonia level in the morning. This will be monitored closely clinically (2) Hyperammonemia: As above (3) Diabetic peripheral neuropathy associated with type 2 diabetes mellitus: (4) Near syncope: Seems to be related to elevated ammonia levels. (5) Diabetes mellitus, type II: Check hemoglobin A1c I do not have 1 on record. 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 Clinical correlation in the morning Attestations Medical Necessity Statement*: Patient will be observed overnight given lactulose and doxycycline. Clinical correlation in the morning Coding Level of Care Code Acute Code for Chg Fwd Diagnoses Acute alteration in mental status R41.82 Hyperammonemia E72.20 Diabetic peripheral neuropathy associated with type 2 diabetes mellitus E11.42 Near syncope R55 Diabetes mellitus, type II E11.9 Diabetes mellitus intermediate card tender insulin use: without intermediate card tender use Diabetes mellitus complication status: without complication Liver cirrhosis secondary to [place] DIOS K75.81; K74.60 Leukopenia D72.819 Thrombocytopenia D69.6
[2023-04-22 18:21] LABS: Troponin 5 6HR 6.43 ng/L (0-15)
[2023-04-22 18:58] LABS: Troponin 5 6HR Delta -3.57 ng/L (0-12)
--- NOTE | 2023-04-22 19:39 | PC.NURSE ---
Patient refusing hospital gown and states wants to stay in own clothes.
[2023-04-22] MEDS: doxycycline 100 mg Tablet PO (21:58)
[2023-04-23 04:00] VITALS: BP 126/72; PULSE 75; RESP 17; TEMP 36.8; O2SAT 95
[2023-04-23] MEDS: ketorolac 30 mg/mL INJ IVP (04:15)
[2023-04-23 04:42] LABS: Ammonia 47 umol/L (16-60)
[2023-04-23 04:50] LABS: Estmated Average Glucose 134; Hemoglobin A1C 6.3 % (4.0-6.0)
[2023-04-23 05:22] VITALS: PULSE 69
[2023-04-23 08:00] VITALS: BP 137/80; PULSE 68; RESP 18; TEMP 36.6; O2SAT 96
[2023-04-23] MEDS: doxycycline 100 mg Tablet PO (08:50)
[2023-04-23] MEDS: lactulose oral liq 20 gm/30 mL UDC 30 GM PO (08:50)
--- NOTE | 2023-04-23 09:24 | P.DS_ITS ---
Discharge Providers Date of Admission: 04/22/23 16:33 Date of Discharge: April 23, 2023 Attending Provider at Admission: Javi Castillo DO Attending Provider at Discharge: Ta Jordan MD Consults: none Primary Care Provider: Luis Fernando Rhodes Diagnoses at Discharge Discharge Diagnosis (1) Acute alteration in mental status: Details from hospital stay: 2/2 hypoammonemia Status: Acute (2) Hyperammonemia: Status: Acute (3) Diabetic peripheral neuropathy associated with type 2 diabetes mellitus: Status: Acute (4) Near syncope: Details from hospital stay: resolved Status: Acute (5) Diabetes mellitus, type II: Status: Acute Qualifiers: Diabetes mellitus extermination supervisor insulin use: without detention use Diabetes mellitus complication status: without complication Qualified Code(s): E11.9 - Type 2 diabetes mellitus without complications (6) 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 was driving to doctors appointment, swearing like he was drunk. Ammonia levels elevated on admission. given Lactulose. States he felt much improved after medication and has regained mentation. seen on AM of discharge. states he is back to baseline and Sx have resolved. Pt started on Doxy for presumed tick bourne illness with pending labs. will be dischargd on doxy 100mg BID for 10 days and Lactulose PRN Physical Exam Narrative: Patient is a 57-year-old male appears older than stated age. He is in no acute distress at time of examination Neurologic alert and oriented x3 nonfocal exam NIHSS of 0 Psychiatric: Patient with a very flat affect soft-spoken no hallucinations SI or HI HEENT head is normocephalic atraumatic pupils equal round and reactive to light and accommodation extraocular muscles are intact there is no scleral icterus mucous membranes are moist and pink without lesions or exudates neck is supple no JVD carotid bruits or lymphadenopathy Cardiac: Normal S1-S2 without murmurs clicks gallops or rubs Lungs: Normal breath sounds no wheezes rales or rhonchi Abdomen: Soft mild diffuse tenderness normal active bowel sounds no hepatosplenomegaly Extremities trace edema in the anterior shins bilaterally Skin: No lesions or rashes noted Discharge Data Studies Completed and Pending Completed Studies During Hospitalization Category Date Time Status CT head wo con* [id number] Stat Cat Scan 04/22/23 11:37 Completed XR chest 1V portable [id number] Stat Exams 04/22/23 11:37 Completed Pending at discharge Category Date Time Status Blood Culture Stat Lab 04/22/23 15:57 Results Tick Panel Stat Lab 04/22/23 11:27 Received Radiology Impressions Chest X-Ray 04/22/23 11:37 Impression: Negative chest. Head CT 04/22/23 11:37 IMPRESSION: Negative head CT. Laboratory Results WBC 2.9 10^3/uL (4.0-10.0) L 04/22/23 11:27 RBC 4.60 10^6/uL (4.1-5.3) 04/22/23 11:27 Hgb 14.4 g/dL (11.7-16.6) 04/22/23 11:27 Hct 41.8 % (42.0-52.0) L 04/22/23 11:27 MCV 90.9 fl (80-94) 04/22/23 11:27 MCH 31.3 pg (28.0-34.0) 04/22/23 11:27 MCHC 34.4 g/dL (30.0-36.0) 04/22/23 11:27 RDW 15.0 % (12.1-15.1) 04/22/23 11:27 Plt Count 78 10^3/cmm (130-400) L 04/22/23 11:27 MPV 10.4 fL (7.4-10.4) 04/22/23 11:27 Neut % (Auto) 47.1 % 04/22/23 11:27 Lymph % (Auto) 34.5 % 04/22/23 11:27 [place] % (Auto) 15.4 % 04/22/23 11:27 Eos % (Auto) 2.4 % 04/22/23 11:27 Baso % (Auto) 0.3 % 04/22/23 11:27 Neut # (Auto) 1.38 10^3/uL (1.8-7.7) L 04/22/23 11:27 Lymph # (Auto) 1.0 10^3/uL (0.8-4.8) 04/22/23 11:27 [place] # (Auto) 0.5 10^3/uL (0.2-0.9) 04/22/23 11:27 Eos # (Auto) 0.1 10^3/uL (0.0-0.8) 04/22/23 11:27 Baso # (Auto) 0.0 10^3/uL (0.0-0.1) 04/22/23 11:27 Nucleated RBC % (auto) 0 % 04/22/23 11:27 Nucleated RBCs # 0.0 /100WBC 04/22/23 11:27 Sodium 137 mmol/L (136-145) 04/22/23 11:27 Potassium 4.1 mmol/L (3.5-5.1) 04/22/23 11:27 Chloride 105 mmol/L (98-107) 04/22/23 11:27 Carbon Dioxide 24 mmol/L (22-29) 04/22/23 11:27 Anion Gap 12.1 (5-19) 04/22/23 11:27 BUN 8 mg/dL (6-20) 04/22/23 11:27 Creatinine 0.6 mg/dL (0.7-1.2) L 04/22/23 11:27 GFR Calculation 139.4 mL/min (90-130) H 04/22/23 11:27 Glucose 188 mg/dL (65-115) H 04/22/23 11:27 POC Glucose 199 mg/dL (70-110) H 04/22/23 10:52 Estimat Average Glucose 134 04/23/23 03:56 Hemoglobin A1c 6.3 % (4.0-6.0) H 04/23/23 03:56 Calculated Osmolality 287 mOsm/kg (285-295) 04/22/23 11:27 Calcium 8.6 mg/dL (8.5-10.5) 04/22/23 11:27 Total Bilirubin 0.7 mg/dL (0.15-1.2) 04/22/23 11:27 AST 23 U/L (0-40) 04/22/23 11:27 ALT 19 U/L (0-41) 04/22/23 11:27 Alkaline Phosphatase 89 U/L (40-130) 04/22/23 11:27 Ammonia 47 umol/L (16-60) 04/23/23 03:56 Troponin T Baseline 10 ng/L (0-15) 04/22/23 11:27 Troponin T 120 Minute 9.65 ng/L (0-15) 04/22/23 13:33 Delta Troponin T -0.35 ABS# (0-10) L 04/22/23 13:33 Troponin T Hi Sens 6Hr 6.43 ng/L (0-15) 04/22/23 17:28 Troponin T Hi Sens 6Hr Delta -3.57 ng/L (0-12) L 04/22/23 17:28 C-Reactive Protein 3.3 mg/L (0.0-4.9) 04/22/23 11:27 NT-Pro-B Natriuret Pep 36 pg/mL (0-125) 04/22/23 11:27 Total Protein 5.7 g/dL (6.6-8.7) L 04/22/23 11:27 Albumin 3.6 g/dL (3.5-5.2) 04/22/23 11:27 Globulin 2.1 g/dL (1.3-4.6) 04/22/23 11:27 Urine Color Yellow (Yellow) 04/22/23 13:11 Urine Appearance Clear (CLEAR) 04/22/23 13:11 Urine pH 5 (5-7) 04/22/23 13:11 Ur Specific [place] 1.020 (1.005-1.030) 04/22/23 13:11 Urine Protein Neg (Negative) 04/22/23 13:11 Urine Glucose (UA) 4+ (Normal) H 04/22/23 13:11 Urine Ketones Negative (Negative) 04/22/23 13:11 Urine Blood Neg (Negative) 04/22/23 13:11 Urine Nitrate Negative (Negative) 04/22/23 13:11 Urine Bilirubin 2+ (Negative) H 04/22/23 13:11 Urine Urobilinogen Norm mg/dL (Negative) 04/22/23 13:11 Ur Leukocyte Esterase Negative (Negative) 04/22/23 13:11 Urine Opiates Screen Positive ng/mL (Negative) H 04/22/23 13:11 Ur Barbiturates Screen Negative ng/mL (Negative) 04/22/23 13:11 Ur Phencyclidine Scrn Negative ng/mL (Negative) 04/22/23 13:11 Ur Amphetamines Screen Negative ng/mL (Negative) 04/22/23 13:11 U Benzodiazepines Scrn Negative ng/mL (Negative) 04/22/23 13:11 Urine Cocaine Screen Negative ng/mL (Negative) 04/22/23 13:11 U Marijuana (THC) Screen Negative ng/mL (Negative) 04/22/23 13:11 Coronavirus 229E (PCR) Not detected (NOT DETECT) 04/22/23 12:18 Influenza Type A Ag negative (Negative) 04/22/23 12:18 Influenza Type B Ag negative (Negative) 04/22/23 12:18 SARS-CoV-2 (PCR) Not detected (NOT DETECT) 04/22/23 12:18 Vitals Last Vital Signs Temp 97.8 F 04/23/23 08:00 Pulse 68 04/23/23 08:00 Resp 18 04/23/23 08:00 BP 137/80 04/23/23 08:00 Pulse Ox 96 04/23/23 08:00 O2 Del Method Room Air 04/23/23 04:00 Discharge Plan Discharge Patient Disposition: Home Condition: Stable Prescriptions: New lactulose 20 gram/30 mL Solution 30 g PO TID PRN (Reason: Delirium) 30 Days Qty: 1200 0RF doxycycline monohydrate 100 mg Tablet 100 mg PO BID 9 Days Qty: 18 0RF Continued pantoprazole 40 mg tablet,delayed release (DR/EC) 40 mg PO BEDTIME venlafaxine [Effexor XR] 150 mg capsule,extended release 24hr 150 mg PO BEDTIME aspirin [Adult Low Dose Aspirin] 81 mg tablet,delayed release (DR/EC) 81 mg PO BEDTIME ferrous sulfate 325 mg (65 mg iron) tablet 325 mg PO EVERY OTHER DAY (DME) Diabetic Shoes See Rx Instructions .Route .MEDSUPPLY Qty: 1 0RF Rx Instructions: As directed tamsulosin 0.4 mg capsule 0.8 mg PO BEDTIME (DME) Custom molded inserts See Rx Instructions .Route .MEDSUPPLY Qty: 1 0RF Rx Instructions: As directed (DME) Diabetic Shoes with 3 pairs of inserts See Rx Instructions .Route .MEDSUPPLY Qty: 1 0RF Rx Instructions: As directed (DME) Diabetic Shoes See Rx Instructions .Route .MEDSUPPLY Qty: 1 0RF Rx Instructions: As directed (DME) Diabetic shoes with 3 inserts See Rx Instructions .ROUTE .MEDSUPPLY Qty: 1 0RF Rx Instructions: As directed carvedilol 3.125 mg tablet 3.125 mg PO BID Qty: 180 2RF losartan 50 mg tablet 50 mg PO BEDTIME cyclobenzaprine [Flexeril] 10 mg Tablet 10 mg PO BID PRN (Reason: Muscle Spasm) Rx Instructions: do not take with tizanidine gabapentin 300 mg Capsule 300 mg PO BID lovastatin 20 mg Tablet 20 mg PO BEDTIME albuterol sulfate [ProAir HFA] 90 mcg/actuation Hfa Aerosol Inhaler 2 puff INHALATION Q4H PRN (Reason: Shortness Of Breath) Jardiance 25 mg Tablet 25 mg PO BEDTIME metformin 1,000 mg Tablet Extended Release 24 Hr 1,000 mg PO BID hydrocodone-acetaminophen 5-325 mg tablet 1 tab PO BEDTIME PRN (Reason: pain) tizanidine 4 mg Tablet 4 mg PO Q8H PRN (Reason: Muscle Spasm) amitriptyline 50 mg Tablet 50 mg PO BEDTIME Tylenol Ex Str Rapid Release 500 mg Tablet 1,000 mg PO Q6H PRN (Reason: Pain) Fioricet 50-325-40 mg Tablet 1 tab PO Q4H PRN (Reason: Migraine Headache) trazodone 150 mg Tablet 150 mg PO BEDTIME Taltz Autoinjector 80 mg/mL auto-injector 80 mg SUBCUT Q30D Discharge Orders: Discharge Order (Routine); Ordered 04/23/23 Ordered By: Ta Jordan Referrals: Luis Fernando Rhodes [Primary Care Provider] - Discharge Diet: Advance as tolerated Discharge Activity: Resume usual activity Patient Instructions: Opioid Safety Discharge Attestations Time Spent in Discharge Care*: less than 30 min Quality Metrics Clinical Quality Measures [ No reported AMI, CVA or VTE this stay] Coding Level of Care Code 98632 Diagnoses Acute alteration in mental status R41.82 Hyperammonemia E72.20 Diabetic peripheral neuropathy associated with type 2 diabetes mellitus E11.42 Near syncope R55 Diabetes mellitus, type II E11.9 Diabetes mellitus detention insulin use: without extermination supervisor use Diabetes mellitus complication status: without complication Liver cirrhosis secondary to DE DIOS K75.81; K74.60
--- NOTE | 2023-04-23 10:22 | PC.NURSE ---
patient verbalized understanding of discharge instructions, home medication, and follow up appointments. patient escorted to main entrance where he met family in the lobby.
[2023-04-23 10:30] VITALS: BP 137/80; PULSE 68; RESP 18; TEMP 36.6; O2SAT 96
[2023-04-24 14:33] LABS: Lyme AB Screen <0.90 index
[2023-04-29 16:50] LABS: E. Chaffeensis AB IGG <1:64; E. Chaffeensis AB IGM <1:20
[2023-04-30 16:23] LABS: RMSF IGG DETECTED; RMSF IGM NOT DETECTED
== END 2023-04-23 10:31 | disposition home or self-care (01) ==
LOC: ER 15:13 → MEDSURG 16:34
PROVIDERS: Admitting Provider Internal Medicine; Emergency Provider Emergency Medicine; PCP Family Medicine; Visit Provider Family Medicine
DX: R41.82 Altered mental status, unspecified (principal); E72.20 Disorder of urea cycle metabolism, unspecified; K74.60 Unspecified cirrhosis of liver; K75.81 Nonalcoholic steatohepatitis (NASH); D69.6 Thrombocytopenia, unspecified; D72.819 Decreased white blood cell count, unspecified; E11.42 Type 2 diabetes mellitus with diabetic polyneuropathy; E78.5 Hyperlipidemia, unspecified; I10 Essential (primary) hypertension; J44.9 Chronic obstructive pulmonary disease, unspecified; Z79.4 Long term (current) use of insulin; Z79.82 Long term (current) use of aspirin; Z79.84 Long term (current) use of oral hypoglycemic drugs; Z86.73 Personal history of transient ischemic attack (TIA), and cerebral infarction without residual deficits
CPT/HCPCS: 36415; 36416; 70450; 71045; 80053; 80306; 81003; 82140; 82962; 83036; 83880; 84484; 85025; 86140; 86618; 86666; 86757; 87040; 87635; 87804; 93005; 96365; 96375; 99285; G0378; J1885; J2405; J3490; J7040; J8597

== ENCOUNTER 2023-09-09 21:18 | Emergency (ER) | payer MEDICAID, SELFPAY ==
[2023-09-09 21:26] VITALS: BP 141/84; PULSE 72; RESP 16; TEMP 36.5; O2SAT 97; BMI 36.0
--- NOTE | 2023-09-09 21:38 | CTR_ITS ---
PROCEDURE INFORMATION: Exam: CT Abdomen And Pelvis Without Contrast Exam date and time: 09/09/2023 9:56 PM Age: 58 years old Clinical indication: Other: Hematuria, suprapubic pain; Abdominal pain; Localized; Lower; Prior surgery; Surgery date: 6+ months; Surgery type: Back, hernia TECHNIQUE: Imaging protocol: Computed tomography of the abdomen and pelvis without contrast. Radiation optimization: All CT scans at this facility use at least one of these dose optimization techniques: automated exposure control; mA and/or kV adjustment per patient size (includes targeted exams where dose is matched to clinical indication); or iterative reconstruction. REPORTING DATA: Count of CT and Cardiac NM exams in prior 12 months: This patient has received [address] and 0 known cardiac nuclear medicine studies in the 12 months prior to the current study. COMPARISON: CT abdomen pelvis w con* [id number] 12/13/2020 7:06 PM RADIATION DOSE METRICS: Total DLP (mGy-cm): 1012.78 FINDINGS: Liver: The hepatic parenchyma has a diffusely heterogenous appearance and lobulated contours along with enlarged caudate lobe. Redemonstration of similar-appearing left hepatic 8 mm focal area of decreased attenuation on series 3, images 62 and 63, too small to accurately characterize. No other definite focal intrahepatic lesions are seen however exam sensitivity and specificity is limited secondary to lack of IV contrast. Gallbladder and bile ducts: No gallbladder wall thickening. No calcified stones. No ductal dilation. Pancreas: No intraparenchymal lesions are seen. No ductal dilation. Spleen: The non contrasted spleen is enlarged and contains a few benign-appearing punctate calcifications which may represent sequelae of prior granulomatous disease.. Adrenal glands: Normal. No mass. Kidneys and ureters: No solid intraparenchymal soft tissue lesion. No hydronephrosis. Right renal inferior pole low attenuating cystic structure measuring up to 1.2 cm in diameter on series 5, image 112 likely represents a benign cyst. Stomach and bowel: No pathologic bowel dilatation. There is a focal area of circumferential wall thickening in the sigmoid colon on series 5, image 47, findings may represent peristalsis however other etiologies including neoplastic process cannot be excluded. There are a few loops of small bowel in close proximity to one another and to the anterior abdominal wall in the right lower quadrant at the anterolateral margin of the cecum this region also contains a few loops of decompressed small bowel (series 5, image 63). Appendix: No evidence of acute appendicitis. Intraperitoneal space: No free air. No abnormal walled-off fluid collection. Trace free fluid and induration and stranding of the mesenteric fat along with mild engorgement of the mesenteric vasculature. Vasculature: No abdominal aortic aneurysm. Recannulization of the umbilical vein. Multiple enlarged and tortuous venous structures within the abdomen and pelvis compatible with sequelae of portosystemic hypertension. Lymph nodes: No pathologically enlarged lymph nodes. Urinary bladder: The anguiano of the urinary bladder appear minimally thickened, most pronounced anteriorly. Reproductive: Unremarkable as visualized. Bones/joints: No acute fracture. Operative changes of lower lumbar posterior decompression with bilateral posterior rods and pedicle screws fixing L3-L4 along with intervertebral disc cage at L3-L4 hardware appears intact without findings of failure or loosening. Lumbosacral transitional vertebral body with partial sacralization of L5 is noted. Soft tissues: Small bilateral fat containing inguinal hernias. Small fat containing umbilical hernia. CT/CT abdomen pelvis wo con [id number] IMPRESSION: 1. The anguiano of the urinary bladder appear mildly thickened, most pronounced anteriorly. Findings are nonspecific, differential includes cystitis and hypertrophic changes secondary to outlet stenosis. Correlate and follow-up as clinically indicated. 2. Cirrhotic appearing liver and sequelae of portal hypertension as described above. 3. There are a few loops of small bowel in close proximity to one another and to the anterior abdominal wall in the right lower quadrant at the anterolateral margin of the cecum this region also contains a few loops of decompressed small bowel (series 5, image 63). Findings are nonspecific but can be seen with adhesions and transmesenteric pericecal internal hernia with small bowel obstruction. Correlate and follow-up as clinically indicated 4. Other chronic/incidental findings as described above.
--- NOTE | 2023-09-09 21:39 | W.ED.MALEGU ---
HPI - Male Genitourinary General: Chief complaint: Urogenital-Male Stated complaint: urinating blood Time Seen by Provider: 09/09/23 21:20 History of Present Illness: Patient presents to the ER after having 1 episode of urinating blood. Patient said he had 1 episode of bright red blood earlier today and before that he was totally perfect. Patient does state he is having some pain at the head of his penis, also having some abdominal pain,. Patient has had kidney stones in the past but that they felt different than this. Patient denies any nausea vomiting diarrhea fevers chills. Review of Systems General: Reports: 10 or more systems reviewed and unremarkable except in HPI and below PFSH ED PFSH: Medical History Hammertoe, bilateral Diastasis recti Dyslipidemia Depression Hypertension Migraine Diabetes mellitus, type II COPD (chronic obstructive pulmonary disease) TIA (transient ischemic attack) Had several episodes , most recent one was in Aug. Has Migraine head ache Gastroesophageal reflux Sleep apnea Hiatal hernia Surgical History History of carpal tunnel surgery of right wrist History of thumb surgery Status post colonoscopy (~12/06/19) AVMs ascending colon H/O esophagogastroduodenoscopy (~12/06/19) Gastritis History of carpal tunnel release Left H/O hernia repair Family History Mother CAD (coronary artery disease) Stroke Sister CAD (coronary artery disease) Cancer Diabetes Brother CAD (coronary artery disease) Family/Other Cancer Diabetes Grandmother Diabetes Father Lung disease Denies family history of Clotting disorder Dementia Chronic kidney disease (CKD) Suicide Anesthesia complication Bleeding disorder Social History Smoking and tobacco/nicotine status: never used tobacco/nicotine Alcohol intake: former Substance/Drug Use: never Lives independently: Yes Household members: spouse Physical Exam Const: COMMON NORMALS: no acute distress, average body habitus, patient oriented x3, no limitations, healthy appearing, alert and well nourished HENMT: COMMON NORMALS: normocephalic, atraumatic, hearing grossly normal bilaterally, external ears normal, Normal external nose present, moist oral mucous membranes and oropharynx normal HEAD & SCALP: normocephalic and atraumatic NOSE: Normal external nose present EXTERNAL EAR: Yes external ears normal Neck/C-Spine: COMMON NORMALS: no JVD Chest: COMMONS NORMALS: normal inspection of the chest and normal palpation of entire chest wall Resp: COMMON NORMALS: normal respiratory effort, No retractions, No use of accessory muscles and clear to auscultation bilaterally AUSCULTATION: clear to auscultation bilaterally Cardio: COMMON NORMALS: no JVD, regular rate, regular rhythm, S1 normal heart sound present, S2 normal heart sound present, No gallops present (Cardio), No clicks present (Cardio), No murmurs present (Cardio) and No rub (Cardio) RATE: regular rate RHYTHM: regular rhythm HEART SOUNDS: S1 normal heart sound present and S2 normal heart sound present GI: COMMON NORMALS: Normal to inspection, nondistended, normoactive bowel sounds present, Soft to palpation, non-tender, No hepatosplenomegaly present and no masses PALPATION: Yes Soft to palpation and Yes No hepatosplenomegaly present Neuro: COMMON NORMALS: patient oriented x3 SENSORIUM/ORIENTATION: Yes alert Course Vital Signs: Vital signs: Vital Signs Temperature 97.7 F 09/09/23 21:26 Pulse Rate 68 09/09/23 23:30 Respiratory Rate 20 H 09/09/23 23:30 Blood Pressure 108/66 09/09/23 23:30 Pulse Oximetry 96 09/09/23 23:30 Oxygen Delivery Me thod Room Air 09/09/23 23:30 MDM - Male Medical Decision Making Patient presents to the ER with gross hematuria. Lab work was obtained which showed a urinary tract infection along with low platelets, CT scan was obtained which findings consistent for thickened bladder and possible hernia. Patient knows he has multiple hernias at this time. Is not having any problems from them. Patient will be placed on Cipro for urinary tract infection and should follow-up with his PCP in approximately 7 days or sooner as needed. Differential Diagnosis Unlikely urinary tract infection, priapism, urethritis, epididymitis, genital herpes simplex, prostatitis, acute retention of urine or inguinal hernia Medical Records I reviewed the patient's medical records. Lab Data I reviewed the patient's lab results. 09/09/23 21:45 09/09/23 21:45 Radiology Impressions Abdomen/Pelvis CT 09/09/23 21:38 IMPRESSION: 1. The anguiano of the urinary bladder appear mildly thickened, most pronounced anteriorly. Findings are nonspecific, differential includes cystitis and hypertrophic changes secondary to outlet stenosis. Correlate and follow-up as clinically indicated. 2. Cirrhotic appearing liver and sequelae of portal hypertension as described above. 3. There are a few loops of small bowel in close proximity to one another and to the anterior abdominal wall in the right lower quadrant at the anterolateral margin of the cecum this region also contains a few loops of decompressed small bowel (series 5, image 63). Findings are nonspecific but can be seen with adhesions and transmesenteric pericecal internal hernia with small bowel obstruction. Correlate and follow-up as clinically indicated 4. Other chronic/incidental findings as described above. ADDENDUM: 09/09/238 The findings were verbally communicated via telephone conference with Dr. Plaza at 11:30 PM AUDIO VISUAL COLLECTIONS COORDINATOR on 09/09/2023. The findings were acknowledged and understood. Laboratory Results WBC 3.18 10^3/uL (3.29-11.43) L 09/09/23 21:45 RBC 4.55 10^6/uL (3.85-5.65) 09/09/23 21:45 Hgb 14.40 g/dL (11.27-16.99) 09/09/23 21:45 Hct 40.3 % (37-53) 09/09/23 21:45 MCV 88.6 fl (82-101) 09/09/23 21:45 MCH 31.6 pg (27-33) 09/09/23 21:45 MCHC 35.7 g/dL (30-55) 09/09/23 21:45 RDW 13.9 % (12.1-15.1) 09/09/23 21:45 Plt Count 71 10^3/cmm (157-399) L 09/09/23 21:45 MPV 9.9 fL (7.4-10.4) 09/09/23 21:45 Neut % (Auto) 48.4 % 09/09/23 21:45 Lymph % (Auto) 36.5 % 09/09/23 21:45 [place] % (Auto) 11.0 % 09/09/23 21:45 Eos % (Auto) 3.5 % 09/09/23 21:45 Baso % (Auto) 0.6 % 09/09/23 21:45 Neut # (Auto) 1.54 10^3/uL (1.8-7.7) L 09/09/23 21:45 Lymph # (Auto) 1.2 10^3/uL (0.8-4.8) 09/09/23 21:45 [place] # (Auto) 0.4 10^3/uL (0.2-0.9) 09/09/23 21:45 Eos # (Auto) 0.1 10^3/uL (0.0-0.8) 09/09/23 21:45 Baso # (Auto) 0.0 10^3/uL (0.0-0.1) 09/09/23 21:45 Nucleated RBC % (auto) 0 % 09/09/23 21:45 Nucleated RBCs # 0.0 /100WBC 09/09/23 21:45 PT 14.90 SECONDS (12.1-14.9) 09/09/23 21:45 INR 1.14 (0.8-1.2) 09/09/23 21:45 Sodium 134 mmol/L (136-145) L 09/09/23 21:45 Potassium 4.0 mmol/L (3.5-5.1) 09/09/23 21:45 Chloride 102 mmol/L (98-107) 09/09/23 21:45 Carbon Dioxide 23 mmol/L (22-29) 09/09/23 21:45 Anion Gap 13.0 (5-19) 09/09/23 21:45 BUN 6 mg/dL (6-20) 09/09/23 21:45 Creatinine 0.7 mg/dL (0.7-1.2) 09/09/23 21:45 GFR Calculation 116.2 mL/min (90-130) 09/09/23 21:45 Glucose 305 mg/dL (65-115) H 09/09/23 21:45 Calculated Osmolality 287 mOsm/kg (285-295) 09/09/23 21:45 Calcium 9.0 mg/dL (8.5-10.5) 09/09/23 21:45 Total Bilirubin 0.7 mg/dL (0.15-1.2) 09/09/23 21:45 AST 25 U/L (0-40) 09/09/23 21:45 ALT 19 U/L (0-41) 09/09/23 21:45 Alkaline Phosphatase 119 U/L (40-130) 09/09/23 21:45 Total Protein 6.1 g/dL (6.6-8.7) L 09/09/23 21:45 Albumin 3.7 g/dL (3.5-5.2) 09/09/23 21:45 Globulin 2.4 g/dL (1.3-4.6) 09/09/23 21:45 Urine Color Yellow (Yellow) 09/09/23 21:35 Urine Appearance Hazy (CLEAR) A 09/09/23 21:35 Urine pH 6 (5-7) 09/09/23 21:35 Ur Specific [place] 1.010 (1.005-1.030) 09/09/23 21:35 Urine Protein Neg (Negative) 09/09/23 21:35 Urine Glucose (UA) 4+ (Normal) H 09/09/23 21:35 Urine Ketones Negative (Negative) 09/09/23 21:35 Urine Blood 3+ (Negative) H 09/09/23 21:35 Urine Nitrate Negative (Negative) 09/09/23 21:35 Urine Bilirubin Neg (Negative) 09/09/23 21:35 Urine Urobilinogen 1 mg/dL (Negative) H 09/09/23 21:35 Ur Leukocyte Esterase Trace (Negative) H 09/09/23 21:35 Urine RBC 50-80 /hpf (0-2) H 09/09/23 21:35 Urine WBC 40-55 /hpf (0-5) H 09/09/23 21:35 Ur Squamous Epith Cells 0-4 /hpf (0-5) H 09/09/23 21:35 Amorphous Sediment Not Reportable 09/09/23 21:35 Urine Bacteria Trace /hpf (NONE) 09/09/23 21:35 All radiology interpretation(s) finalized by discharge Discharge Plan Discharge Patient Disposition: Home Clinical Impression: Urinary tract infection, Abdominal hernia Condition: Stable Prescriptions: No Action pantoprazole 40 mg tablet,delayed release (DR/EC) 40 mg PO BEDTIME venlafaxine [Effexor XR] 150 mg capsule,extended release 24hr 150 mg PO BEDTIME aspirin [Adult Low Dose Aspirin] 81 mg tablet,delayed release (DR/EC) 81 mg PO BEDTIME ferrous sulfate 325 mg (65 mg iron) tablet 325 mg PO EVERY OTHER DAY (DME) Diabetic Shoes See Rx Instructions .Route .MEDSUPPLY Qty: 1 0RF Rx Instructions: As directed tamsulosin 0.4 mg capsule 0.8 mg PO BEDTIME (DME) Custom molded inserts See Rx Instructions .Route .MEDSUPPLY Qty: 1 0RF Rx Instructions: As directed (DME) Diabetic Shoes with 3 pairs of inserts See Rx Instructions .Route .MEDSUPPLY Qty: 1 0RF Rx Instructions: As directed (DME) Diabetic Shoes See Rx Instructions .Route .MEDSUPPLY Qty: 1 0RF Rx Instructions: As directed (DME) Diabetic shoes with 3 inserts See Rx Instructions .ROUTE .MEDSUPPLY Qty: 1 0RF Rx Instructions: As directed carvedilol 3.125 mg tablet 3.125 mg PO BID Qty: 180 2RF losartan 50 mg tablet 50 mg PO BEDTIME cyclobenzaprine 10 mg Tablet 10 mg PO BID PRN (Reason: Muscle Spasm) Rx Instructions: do not take with tizanidine gabapentin 300 mg Capsule 300 mg PO BID lovastatin 20 mg Tablet 20 mg PO BEDTIME albuterol sulfate [ProAir HFA] 90 mcg/actuation Hfa Aerosol Inhaler 2 puff INHALATION Q4H PRN (Reason: Shortness Of Breath) Jardiance 25 mg Tablet 25 mg PO BEDTIME metformin 1,000 mg Tablet Extended Release 24 Hr 1,000 mg PO BID hydrocodone-acetaminophen 5-325 mg tablet 1 tab PO BEDTIME PRN (Reason: pain) tizanidine 4 mg Tablet 4 mg PO Q8H PRN (Reason: Muscle Spasm) amitriptyline 50 mg Tablet 50 mg PO BEDTIME acetaminophen 500 mg Tablet 1,000 mg PO Q6H PRN (Reason: Pain) cpihtgxqid-diunrxcmgqpyd-rbkm 50-325-40 mg Tablet 1 tab PO Q4H PRN (Reason: Migraine Headache) trazodone 150 mg Tablet 150 mg PO BEDTIME Taltz Autoinjector 80 mg/mL auto-injector 80 mg SUBCUT Q30D Discharge Orders: Discharge ED (Routine); Ordered 09/09/23 Ordered By: Tien Plaza Referrals: Luis Fernando Rhodes [Primary Care Provider] - 1 week Patient Instructions: Urinary Tract Infection in Men (ED), Abdominal Hernia Activity Restrictions/Additional Instructions: Please take all your antibiotics as directed. Please follow-up with your family practice physician within the next 7 to 10 days as needed for further evaluation and treatment. Coding Level of Care Code ED Director Of [employer] for Felipa Pérez
[2023-09-09 21:40] VITALS: BP 141/84; PULSE 67; RESP 18; O2SAT 94
[2023-09-09 22:05] LABS: Basophils % 0.6 %; Eosinophils # 0.1 10^3/uL (0.0-0.8); Eosinophils % 3.5 %; Hematocrit 40.3 % (37-53); Lymphocytes # 1.2 10^3/uL (0.8-4.8); Lymphocytes % 36.5 %; Mean Corpuscular HGB Conc 35.7 g/dL (30-55); Mean Corpuscular Hemoglobin 31.6 pg (27-33); Mean Corpuscular Volume 88.6 fl (82-101); Mean Platelet Volume 9.9 fL (7.4-10.4); Monocytes # 0.4 10^3/uL (0.2-0.9); Neutrophils # 1.54 10^3/uL (1.8-7.7); Neutrophils % 48.4 %; Nucleated Red Blood Cells % 0 %; Platelet Count 71 10^3/cmm (157-399); Red Blood Count 4.55 10^6/uL (3.85-5.65); Red Cell Distribution Width 13.9 % (12.1-15.1); White Blood Count 3.18 10^3/uL (3.29-11.43)
[2023-09-09 22:09] LABS: INR 1.14 (0.8-1.2)
[2023-09-09 22:14] LABS: Alanine Aminotransferase 19 U/L (0-41); Albumin Level 3.7 g/dL (3.5-5.2); Alkaline Phosphatase 119 U/L (40-130); Aspartate Amino Transferase 25 U/L (0-40); Blood Urea Nitrogen 6 mg/dL (6-20); Carbon Dioxide 23 mmol/L (22-29); Chloride 102 mmol/L (98-107); Creatinine Clr Calc Pharmacy 134.0358; Globulin 2.4 g/dL (1.3-4.6); Glomerular Filtration Rate 116.2 mL/min (90-130); Glucose 305 mg/dL (65-115); Osmolality Calculated 287 mOsm/kg (285-295); Sodium 134 mmol/L (136-145); Total Bilirubin 0.7 mg/dL (0.15-1.2); Total Protein 6.1 g/dL (6.6-8.7)
[2023-09-09 22:19] LABS: Add Urine Microscopic? YES; Bilirubin Urine Neg (Negative); Blood Urine 3+ (Negative); Glucose Urine UA 4+ (Normal); Ketones Urine Negative (Negative); Leukocyte Esterase Urine Trace (Negative); Nitrate Urine Negative (Negative); Protein Urine Neg (Negative); Urine Appearance Hazy (CLEAR); Urine Color Yellow (Yellow); Urobilinogen Urine 1 mg/dL (Negative); pH Urine 6 (5-7)
[2023-09-09 22:20] LABS: Add Urine Culture? Yes; Bacteria Urine TRACE /hpf; RBC Urine 50-80 /hpf (0-2); Squamous Epithelial Cell Urine 0-4 /hpf (0-5); WBC Urine 40-55 /hpf (0-5)
[2023-09-09 22:22] VITALS: BP 96/56; PULSE 68; O2SAT 94
[2023-09-09 22:38] VITALS: BP 96/56; PULSE 69; O2SAT 94
[2023-09-09 23:30] VITALS: BP 108/66; PULSE 68; RESP 20; O2SAT 96
[2023-09-09] MEDS: sodium chloride 0.9% 1,000 ML 999 ML IV (23:34)
[2023-09-09] MEDS: ciprofloxacin 500 mg Tablet PO (23:46)
[2023-09-10 00:06] VITALS: BP 119/78; PULSE 66; RESP 22; O2SAT 97
== END 2023-09-10 00:08 | disposition home or self-care (01) ==
PROVIDERS: Emergency Provider Emergency Medicine; PCP Family Medicine
DX: N39.0 Urinary tract infection, site not specified (principal); K46.9 Unspecified abdominal hernia without obstruction or gangrene; Z79.82 Long term (current) use of aspirin; Z79.84 Long term (current) use of oral hypoglycemic drugs; E78.5 Hyperlipidemia, unspecified; I10 Essential (primary) hypertension; E11.9 Type 2 diabetes mellitus without complications; J44.9 Chronic obstructive pulmonary disease, unspecified; Z86.73 Personal history of transient ischemic attack (TIA), and cerebral infarction without residual deficits
CPT/HCPCS: 36415; 74176; 80053; 81001; 85025; 85610; 87086; 96360; 99285; J7030

== ENCOUNTER 2024-04-08 14:18 | Emergency (ER) | payer MEDICARE, MEDICAID, SELFPAY ==
[2024-04-08 14:24] VITALS: BP 137/77; PULSE 94; RESP 16; TEMP 36.7; O2SAT 97
[2024-04-08 14:58] LABS: Add Urine Microscopic? NO; Charge for UA Resulting for Rev
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
[2024-04-08 15:06] LABS: Bilirubin Urine Neg (Negative); Blood Urine Neg (Negative); Glucose Urine UA 4+ (Normal); Ketones Urine 1+ (Negative); Leukocyte Esterase Urine Negative (Negative); Nitrate Urine Negative (Negative); Protein Urine Neg (Negative); Specific Gravity, Urine 1.015 (1.005-1.030); Urine Appearance Clear (CLEAR); Urine Color Yellow (Yellow); Urobilinogen Urine 1 mg/dL (Negative); pH Urine 6.5 (5-7)
[2024-04-08] MEDS: ketorolac 60 mg/2 mL INJ IM (15:10)
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
[2024-04-08 16:30] VITALS: BP 135/78; PULSE 89; RESP 16; TEMP 36.7; O2SAT 98
== END 2024-04-08 16:30 | disposition home or self-care (01) ==
PROVIDERS: Emergency Provider Physician Assistant; PCP Family Medicine
DX: S39.012A Strain of muscle, fascia and tendon of lower back, initial encounter (principal); Z79.82 Long term (current) use of aspirin; Z79.84 Long term (current) use of oral hypoglycemic drugs; E11.9 Type 2 diabetes mellitus without complications; E78.5 Hyperlipidemia, unspecified; I10 Essential (primary) hypertension; J44.9 Chronic obstructive pulmonary disease, unspecified; Z86.73 Personal history of transient ischemic attack (TIA), and cerebral infarction without residual deficits; V89.2XXA Person injured in unspecified motor-vehicle accident, traffic, initial encounter
CPT/HCPCS: 72131; 81003; 96372; 99284; J1885

== ENCOUNTER → 2024-06-08 10:27 | Outpatient (BNVA) | payer MEDICARE, MEDICAID, SELFPAY | PROVIDERS: PCP Family Medicine; Visit Provider Nurse Practitioner Family | DX: Z01.89 Encounter for other specified special examinations (principal) | CPT/HCPCS: 36415; 86480 ==

== ENCOUNTER 2024-11-16 11:00 | Oncology outpatient (recurring) (ONCR) | payer MEDICARE, MEDICAID, SELFPAY ==
[2024-10-24] MEDS: sodium chloride 0.9% 250 ML 75 ML IV (10:57)
[2024-10-24] MEDS: diphenhydrAMINE 50 mg/mL SDV 1mL 12.5 MG IVP (10:57)
[2024-10-24] MEDS: iron sucrose 200 MG in sodium chloride 0.9% 50 ML 240 MG IV (11:12)
[2024-10-24 11:54] VITALS: BP 128/79; PULSE 78; RESP 16; TEMP 36.6; O2SAT 98
[2024-10-26] MEDS: diphenhydrAMINE 50 mg/mL SDV 1mL 12.5 MG IVP (09:45)
[2024-10-26] MEDS: iron sucrose 200 MG in sodium chloride 0.9% 50 ML 240 MG IV (09:46)
[2024-10-26 10:25] VITALS: BP 114/84; PULSE 84; RESP 18; TEMP 36.4; O2SAT 94
[2024-11-02] MEDS: diphenhydrAMINE 50 mg/mL SDV 1mL 12.5 MG IVP (09:11)
[2024-11-02] MEDS: iron sucrose 200 MG in sodium chloride 0.9% 50 ML 240 MG IV (09:18)
[2024-11-02 09:50] VITALS: BP 110/74; PULSE 71; RESP 18; TEMP 36.6; O2SAT 97
[2024-11-16] MEDS: diphenhydrAMINE 50 mg/mL SDV 1mL 12.5 MG IVP (11:39)
[2024-11-16] MEDS: iron sucrose 200 MG in sodium chloride 0.9% 50 ML 240 MG IV (11:48)
[2024-11-16 12:14] VITALS: BP 150/79; PULSE 87; RESP 16; TEMP 36.8; O2SAT 95
== END 2024-11-18 23:59 | disposition home or self-care (01) ==
PROVIDERS: PCP Family Medicine; Visit Provider Internal Medicine Hematology & Oncology
DX: Z53.9 Procedure and treatment not carried out, unspecified reason (principal); D50.9 Iron deficiency anemia, unspecified; Z79.899 Other long term (current) drug therapy
CPT/HCPCS: 96365; 96375; J1200; J1756; J7050

== ENCOUNTER 2024-11-22 08:27 | Oncology outpatient (recurring) (ONCR) | payer MEDICARE, MEDICAID, SELFPAY | END 2024-12-19 23:59 | disposition home or self-care (01) | PROVIDERS: PCP Family Medicine; Visit Provider Internal Medicine Hematology & Oncology | DX: Z53.9 Procedure and treatment not carried out, unspecified reason (principal); D50.9 Iron deficiency anemia, unspecified; D72.819 Decreased white blood cell count, unspecified; K75.81 Nonalcoholic steatohepatitis (NASH); K74.60 Unspecified cirrhosis of liver; D69.1 Qualitative platelet defects; I85.00 Esophageal varices without bleeding; Z79.899 Other long term (current) drug therapy | CPT/HCPCS: 99205 ==

== ENCOUNTER → 2024-12-06 08:43 | Outpatient (BNVA) | payer MEDICARE, MEDICAID, SELFPAY | PROVIDERS: PCP Family Medicine; Visit Provider Nurse Practitioner Family | DX: L40.0 Psoriasis vulgaris (principal); Z79.899 Other long term (current) drug therapy; D22.39 Melanocytic nevi of other parts of face; L81.4 Other melanin hyperpigmentation; L57.8 Other skin changes due to chronic exposure to nonionizing radiation; S00.30XA Unspecified superficial injury of nose, initial encounter; S50.902A Unspecified superficial injury of left elbow, initial encounter; X58.XXXA Exposure to other specified factors, initial encounter; L57.0 Actinic keratosis | CPT/HCPCS: 17000; 99214 ==

== ENCOUNTER 2025-01-11 08:00 | Oncology outpatient (recurring) (ONCR) | payer MEDICARE, MEDICAID, SELFPAY ==
[2025-01-03 09:44] LABS: Basophils % 0.7 %; Eosinophils # 0.1 10^3/uL (0.0-0.8); Eosinophils % 5.1 %; Hematocrit 32.6 % (37-53); Lymphocytes # 0.6 10^3/uL (0.8-4.8); Lymphocytes % 22.4 %; Mean Corpuscular Hemoglobin 27.1 pg (27-33); Mean Corpuscular Volume 87.4 fl (82-101); Mean Platelet Volume 9.2 fL (7.4-10.4); Monocytes # 0.2 10^3/uL (0.2-0.9); Monocytes % 8.1 %; Neutrophils # 1.73 10^3/uL (1.8-7.7); Neutrophils % 63.7 %; Nucleated Red Blood Cells % 0 %; Platelet Count 89 10^3/cmm (157-399); Red Blood Count 3.73 10^6/uL (3.85-5.65); Red Cell Distribution Width 14.5 % (12.1-15.1); White Blood Count 2.72 10^3/uL (3.29-11.43)
[2025-01-03 10:03] LABS: Alanine Aminotransferase 15 U/L (0-41); Albumin Level 3.8 g/dL (3.5-5.2); Alkaline Phosphatase 145 U/L (40-130); Anion Gap 16.4 (5-19); Aspartate Amino Transferase 30 U/L (0-40); Blood Urea Nitrogen 8 mg/dL (6-20); Calcium 8.4 mg/dL (8.5-10.5); Carbon Dioxide 21 mmol/L (22-29); Chloride 104 mmol/L (98-107); Creatinine Clr Calc Pharmacy 185.8029; Globulin 2.8 g/dL (1.3-4.6); Glomerular Filtration Rate 170.8 mL/min (90-130); Glucose 333 mg/dL (65-115); Osmolality Calculated 295 mOsm/kg (285-295); Potassium 4.4 mmol/L (3.5-5.1); Sodium 137 mmol/L (136-145); Total Bilirubin 0.6 mg/dL (0.15-1.2); Total Protein 6.6 g/dL (6.6-8.7)
[2025-01-03 10:26] LABS: Ferritin 45 ng/mL (30-400); Iron 24 ug/dL (59-158); Percent Saturation 7.4 % (20-50); Total Iron Binding Capacity 323 mcg/dl; Unsaturated Iron Binding 299 ug/dL (112-347)
[2025-01-03 10:41] LABS: Vitamin B12 689 pg/mL (232-1245)
[2025-01-03 10:46] LABS: Folate Level 13.9 ng/mL (4.5-32.2)
[2025-01-11] MEDS: sodium chloride 0.9% 500 ML 75 ML IV (09:04)
[2025-01-11] MEDS: diphenhydrAMINE 50 mg/mL SDV 1mL 25 MG IVP ×2 (09:08→09:54)
[2025-01-11] MEDS: acetaminophen 325 mg Tablet 650 MG PO (09:10)
[2025-01-11] MEDS: iron dextran 25 MG in SYRINGE 1 EACH 30 MG IVP (09:40)
[2025-01-11 09:57] VITALS: BP 120/66; PULSE 89; O2SAT 95
[2025-01-11] MEDS: methylPREDNISolone sod succ 40 mg/mL INJ IVP (09:57)
--- NOTE | 2025-01-11 10:21 | PC.NURSE ---
Pt receiving infed infusion. After test dose was pushed from approx. 2431-2019, pt began complaining of chest pain and pain in his upper back. Infusion was stopped at approx. 0950. Vitals- BP 90/64, O2 94, HR 90. 25mg benadryl was given at 0954. 40mg solumedrol was given at 0957. Pt states he has a history of 3 heart attacks. At 0957, vitals- BP 11/66, HR 88, O2 94. Pt states pain was not getting better. Pain continues to be in upper back, chest, and right side of neck. Rapid response was called at 1005. Vitals 120/66, HR 89, O2 95. Pt sent to ER with rapid response team via wheelchair with 22g IV in right forearm.
== END 2025-01-18 23:59 | disposition home or self-care (01) ==
PROVIDERS: Internal Medicine Medical Oncology; PCP Family Medicine; Visit Provider Internal Medicine
DX: Z53.9 Procedure and treatment not carried out, unspecified reason; D50.9 Iron deficiency anemia, unspecified; Z79.899 Other long term (current) drug therapy; R07.9 Chest pain, unspecified; T50.905A Adverse effect of unspecified drugs, medicaments and biological substances, initial encounter; X58.XXXA Exposure to other specified factors, initial encounter; Z79.82 Long term (current) use of aspirin; Z79.84 Long term (current) use of oral hypoglycemic drugs; J44.9 Chronic obstructive pulmonary disease, unspecified; Z86.73 Personal history of transient ischemic attack (TIA), and cerebral infarction without residual deficits; E78.5 Hyperlipidemia, unspecified; I10 Essential (primary) hypertension; E11.9 Type 2 diabetes mellitus without complications
CPT/HCPCS: 36415; 80053; 82607; 82728; 82746; 83540; 83550; 85025; 96374; 96375; 96376; 99214; J1200; J1750; J2919; J7040; J9999

== ENCOUNTER 2025-01-11 10:11 | Emergency (ER) | payer MEDICARE, MEDICAID, SELFPAY ==
[2025-01-11] VITALS (11 sets, daily range): BP systolic 119–154; BP diastolic 61–81; PULSE 85–108; RESP 16–21; TEMP 36.4; O2SAT 93–96; BMI 36.0
--- NOTE | 2025-01-11 10:15 | ECG_ITS ---
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 Measurements Intervals Emerson Rate: 88 P: 59 MD: 152 QRS: 39 QRSD: 93 T: 36 QT: 400 QTc: 485 Interpretive Statements SINUS RHYTHM POSSIBLE INFERIOR MYOCARDIAL INFARCTION , PROBABLY OLD [30 ms Q WAVE IN II/aVF] Compared to ECG 04/22/2023 18:16:26 Myocardial infarct finding now present Electronically Signed On 01-11-2025 19:54:18 CDT by Chiara Perez M.D. [id number]
--- NOTE | 2025-01-11 11:23 | XRR_ITS ---
PROCEDURE INFORMATION: Exam: XR Chest Exam date and time: 01/11/2025 11:40 AM Age: 59 years old Clinical indication: Shortness of breath; Prior surgery; Surgery date: 6+ months; Surgery type: Lumbar; Medication reaction causing SOB and swelling of throat; Additional info: Chest pain TECHNIQUE: Imaging protocol: Radiologic exam of the chest. Views: 1 view. COMPARISON: CR XR chest 1V portable [id number] 04/22/2023 11:47 AM FINDINGS: Lungs: There is patchy infiltrate involving the left lower lung field suspicious for pneumonia. The right lung is well-expanded and clear. Pleural spaces: Unremarkable. No pleural effusion. No pneumothorax. Heart/Mediastinum: The heart is slightly enlarged. Bones/joints: There is a scoliotic curvature to the thoracolumbar spine. XR/XR chest 1V portable [id number] IMPRESSION: 1. Patchy infiltrate/pneumonia involving the left lower lung field.
--- NOTE | 2025-01-11 11:24 | W.ED.CHESTPA ---
HPI - Chest Pain General: Chief Complaint: Chest Pain Stated Complaint: Reaction medication, Chest pain, Headache Time Seen by Provider: 01/11/25 10:31 History of Present Illness: 59-year-old male presents emergency department. He was trying a new iron dextran infusion. He had never had this particular type of iron infusion. They gave him a test dose. Within a few minutes he started having chest pain and was sweating on his back. His says he also complained of a little bit of right sided jaw pain. He does have a history of chronic chest pain, chest wall pain, anaphylaxis. Patient reports he was given some steroid and Benadryl. They did not start the full infusion since the test dose made him symptomatic. Patient reports he has just a vague sense of discomfort in the center of his chest now. However he has no other symptoms. He has been watching videos and eating and drinking in the emergency department with his . No issues with breathing, feeling of tightness or swelling in the throat, or other concerns for anaphylaxis. He never developed a rash. Associated symptoms: Deny abdominal pain, dyspnea, fever(s), nausea, syncope or vomiting Related Data Home Medications ?Medication ?Instructions ?Recorded ?Confirmed aspirin 81 mg tablet,delayed 81 mg PO BEDTIME 10/06/19 01/11/25 release (Adult Low Dose Aspirin) pantoprazole 40 mg tablet,delayed 40 mg PO BEDTIME 10/06/19 01/11/25 release venlafaxine 150 mg 150 mg PO BEDTIME 10/06/19 01/11/25 capsule,extended release 24 hr (Effexor XR) tamsulosin 0.4 mg capsule 0.8 mg PO BEDTIME 03/06/20 01/11/25 empagliflozin 25 mg tablet 25 mg PO BEDTIME 12/13/20 01/11/25 (Jardiance) gabapentin 300 mg capsule 300 mg PO BID 12/13/20 01/11/25 lovastatin 20 mg tablet 20 mg PO BEDTIME 12/13/20 01/11/25 ferrous sulfate 325 mg (65 mg 325 mg PO EVERY OTHER DAY 04/24/22 01/11/25 iron) tablet amitriptyline 50 mg tablet 50 mg PO BEDTIME 04/22/23 01/11/25 zwgbljklbm-ofednhdovgfna-dsrvczjd 1 tab PO Q4H PRN Migraine Headache 04/22/23 01/11/25 50 mg-325 mg-40 mg tablet hydrocodone 5 mg-acetaminophen 325 1 tab PO BEDTIME PRN pain 04/22/23 01/11/25 mg tablet ixekizumab 80 mg/mL subcutaneous 80 mg SUBCUT Q30D 04/22/23 01/11/25 auto-injector (Taltz Autoinjector) trazodone 150 mg tablet 150 mg PO BEDTIME 04/22/23 01/11/25 furosemide 20 mg tablet 20 mg PO DAILY 11/22/24 01/11/25 losartan 25 mg tablet 25 mg PO BEDTIME 11/22/24 01/11/25 metformin 500 mg tablet,extended 1,000 mg PO BID 11/22/24 01/11/25 release 24 hr rifaximin 550 mg tablet (Xifaxan) 550 mg PO BID 11/22/24 01/11/25 albuterol sulfate 90 mcg/actuation 2 puff inhalation Q4H PRN 01/11/25 01/11/25 aerosol inhaler Shortness Of Breath tizanidine 4 mg tablet 4 mg PO Q8H PRN Spasms 01/11/25 01/11/25 Previous Rx's ?Medication ?Instructions ?Recorded carvedilol 3.125 mg tablet 3.125 mg PO BID #180 tabs 09/23/22 Diabetic Shoes with 3 pairs of #1 ea 01/27/23 inserts Allergies Allergy/AdvReac Type Severity Reaction Status Date / Time bee pollen Allergy Unknown swelling Verified 01/11/25 10:20 strawberry Allergy Unknown shortness Verified 01/11/25 10:20 of breath bee venom protein (honey bee) Allergy ALGY-Difficulty Verified 01/11/25 10:20 Breathing iodine Allergy ADR/ALGY-Flushing/difficulty Verified 01/11/25 10:20 breathing kiwi Allergy unknown Verified 01/11/25 10:20 Penicillins Allergy ALGY-Rash Verified 01/11/25 10:20 Review of Systems General: Reports: 10 or more systems reviewed and unremarkable except in HPI and below Const: Denies: fever(s), chills or body aches Eyes: Denies: change in vision ENMT: Denies: throat pain Card: Denies: edema or syncope Resp: Denies: dyspnea or productive cough GI: Denies: abdominal pain, nausea, vomiting or diarrhea : Denies: flank pain, dysuria or urinary frequency Musc: Denies: neck pain, extremity pain or extremity swelling Skin/Breast: Denies: rash or erythema Neuro: Denies: headache(s), numbness in extremities, weakness in extremities, lack of coordination or difficulty walking PFSH ED PFSH: Medical History Hammertoe, bilateral Diastasis recti Dyslipidemia Depression Hypertension Migraine Diabetes mellitus, type II COPD (chronic obstructive pulmonary disease) TIA (transient ischemic attack) Had several episodes , most recent one was in Aug. Has Migraine head ache Gastroesophageal reflux Sleep apnea Hiatal hernia Surgical History History of carpal tunnel surgery of right wrist History of thumb surgery Status post colonoscopy (~12/06/19) AVMs ascending colon H/O esophagogastroduodenoscopy (~12/06/19) Gastritis History of carpal tunnel release Left H/O hernia repair Family History Mother CAD (coronary artery disease) Stroke Sister CAD (coronary artery disease) Cancer Diabetes Brother CAD (coronary artery disease) Family/Other Cancer Diabetes Grandmother Diabetes Father Lung disease Denies family history of Clotting disorder Dementia Chronic kidney disease (CKD) Suicide Anesthesia complication Bleeding disorder Social History Smoking and tobacco/nicotine status: never used tobacco/nicotine Alcohol intake: former Substance/Drug Use: never Lives independently: Yes Household members: spouse Physical Exam Const: COMMON NORMALS: no limitations, alert and well nourished EXAM LIMITATIONS: no altered mental status HENMT: COMMON NORMALS: normocephalic, atraumatic and external ears normal HEAD & SCALP: normocephalic and atraumatic EXTERNAL EAR: Yes external ears normal MOUTH: no muffled voice Eye: COMMON NORMALS: EOMs intact bilaterally, conjunctivae normal and no scleral icterus CONJUNCTIVA: Yes conjunctivae normal Neck/C-Spine: COMMON NORMALS: no JVD GENERAL: Yes normal visual inspection and Yes trachea midline Resp: COMMON NORMALS: normal respiratory effort and No use of accessory muscles; negative for clear to auscultation bilaterally (crackles both lung bases) AUSCULTATION: not clear to auscultation bilaterally (crackles both lung bases) Cardio: COMMON NORMALS: no JVD, regular rate and regular rhythm RATE: regular rate RHYTHM: regular rhythm GI: COMMON NORMALS: Soft to palpation and non-tender PALPATION: Yes Soft to palpation and No Guarding due to palpation present (GI) Extremity: COMMON NORMALS: normal to inspection Neuro: COMMON NORMALS: moves all extremities, no focal motor deficits and no sensory deficits noted SENSORIUM/ORIENTATION: Yes alert SPEECH: speech normal Psych: COMMON NORMALS: mental status grossly normal, Normal thought process present, cooperative, normal affect and speech normal SPEECH: Yes normal speech THOUGHT PROCESS: Normal thought process present Skin: COMMON NORMALS: no rashes or lesions noted, turgor normal and no jaundice GENERAL SKIN EXAM: no rashes or lesions noted and turgor normal Course Vital Signs: Vital signs: Vital Signs Temperature 97.6 F 01/11/25 10:13 Pulse Rate 98 01/11/25 15:01 Respiratory Rate 16 01/11/25 15:01 Blood Pressure 149/80 01/11/25 15:01 Pulse Oximetry 95 01/11/25 15:01 Oxygen Delivery Me thod Room Air 01/11/25 13:00 MDM - Chest Pain Medical Decision Making EKG obtained at 10:12 AM. EP interpretation. Sinus rhythm, rate 88, normal axis, normal intervals, no concerning ST segment elevations or depressions. Q wave in lead III. EKG #2 obtained at 1246. EP interpretation sinus rhythm, rate 95, normal axis, normal intervals, no concerning ST segment elevations or depressions. Q wave in lead III. Unchanged from previous EKG other than minor rate change. Patient presents with chest discomfort after infusion of iron dextrose. Only a small amount was given to him as a jesus. He does have a history of anaphylaxis to multiple substances. Patient does not appear toxic in any way. He is relaxed watching videos and eating a subsandwich and drinking soda. Initial troponin was reassuring. Because of the timing and the patient's history, we will obtain a delta troponin. If the delta troponin is reassuring, patient may be discharged. The patient does have some crackles in his lung base. He reports he is asymptomatic. His son has had some respiratory illness at home.. He has not had any fever or chills. Chest x-ray shows some bilateral lower lobe infiltrate, slightly worse on the left. It is unclear if this is clinically significant as the patient does not have fever, systemic signs or symptoms of pneumonia, white count. Iron deficiency anemia present--this is why he was getting iron. Low suspicion for ACS, PE, dissection, anaphylaxis, or other emergent pathology at this time. Update: Delta trop is NEG (6) After speaking with the patient, , and considering all of the data; we are not going to treat the lower lobe infiltrates on chest x-ray today. The patient seems to be asymptomatic. I have told him about them and if he develops increasing cough, mucus production, fever, shortness of breath, etc. then we need to see him again or needs to go to his primary care doctor. Lab Data 01/11/25 12:02 01/11/25 12:02 Radiology Impressions Chest X-Ray 01/11/25 11:23 IMPRESSION: 1. Patchy infiltrate/pneumonia involving the left lower lung field. Laboratory Results WBC 4.94 10^3/uL (3.29-11.43) 01/11/25 12:02 RBC 3.76 10^6/uL (3.85-5.65) L 01/11/25 12:02 Hgb 9.90 g/dL (11.27-16.99) L 01/11/25 12:02 Hct 33.1 % (37-53) L 01/11/25 12:02 MCV 88.0 fl (82-101) 01/11/25 12:02 MCH 26.3 pg (27-33) L 01/11/25 12:02 MCHC 29.9 g/dL (30-55) L 01/11/25 12:02 RDW 14.0 % (12.1-15.1) 01/11/25 12:02 Plt Count 95 10^3/cmm (157-399) L 01/11/25 12:02 MPV 9.7 fL (7.4-10.4) 01/11/25 12:02 Neut % (Auto) 83.4 % 01/11/25 12:02 Lymph % (Auto) 6.5 % 01/11/25 12:02 Churchill % (Auto) 5.9 % 01/11/25 12:02 Eos % (Auto) 0.4 % 01/11/25 12:02 Baso % (Auto) 0.6 % 01/11/25 12:02 Neut # (Auto) 4.12 10^3/uL (1.8-7.7) 01/11/25 12:02 Lymph # (Auto) 0.3 10^3/uL (0.8-4.8) L 01/11/25 12:02 Churchill # (Auto) 0.3 10^3/uL (0.2-0.9) 01/11/25 12:02 Eos # (Auto) 0.0 10^3/uL (0.0-0.8) 01/11/25 12:02 Baso # (Auto) 0.0 10^3/uL (0.0-0.1) 01/11/25 12:02 Nucleated RBC % (auto) 0 % 01/11/25 12:02 Nucleated RBCs # 0.0 /100WBC 01/11/25 12:02 Sodium 138 mmol/L (136-145) 01/11/25 12:02 Potassium 4.0 mmol/L (3.5-5.1) 01/11/25 12:02 Chloride 106 mmol/L (98-107) 01/11/25 12:02 Carbon Dioxide 23 mmol/L (22-29) 01/11/25 12:02 Anion Gap 13.0 (5-19) 01/11/25 12:02 BUN 7 mg/dL (6-20) 01/11/25 12:02 Creatinine 0.5 mg/dL (0.7-1.2) L 01/11/25 12:02 GFR Calculation 170.8 mL/min (90-130) H 01/11/25 12:02 Glucose 220 mg/dL (65-115) H 01/11/25 12:02 Calculated Osmolality 291 mOsm/kg (285-295) 01/11/25 12:02 Calcium 8.5 mg/dL (8.5-10.5) 01/11/25 12:02 Total Bilirubin 0.7 mg/dL (0.15-1.2) 01/11/25 12:02 AST 35 U/L (0-40) 01/11/25 12:02 ALT 19 U/L (0-41) 01/11/25 12:02 Alkaline Phosphatase 162 U/L (40-130) H 01/11/25 12:02 Troponin T Baseline < 6 ng/L (0-15) 01/11/25 12:02 Troponin T 120 Minute 6.00 ng/L (0-15) 01/11/25 13:53 Delta Troponin T 0.49900 ABS# (0-10) 01/11/25 13:53 Total Protein 6.3 g/dL (6.6-8.7) L 01/11/25 12:02 Albumin 3.9 g/dL (3.5-5.2) 01/11/25 12:02 Globulin 2.4 g/dL (1.3-4.6) 01/11/25 12:02 All radiology interpretation(s) finalized by discharge Discharge Plan Discharge Patient Disposition: Home Clinical Impression: Medication reaction, Chest pain Condition: Stable Prescriptions: No Action pantoprazole 40 mg tablet,delayed release (DR/EC) 40 mg PO BEDTIME venlafaxine [Effexor XR] 150 mg capsule,extended release 24hr 150 mg PO BEDTIME aspirin [Adult Low Dose Aspirin] 81 mg tablet,delayed release (DR/EC) 81 mg PO BEDTIME ferrous sulfate 325 mg (65 mg iron) tablet 325 mg PO EVERY OTHER DAY tamsulosin 0.4 mg capsule 0.8 mg PO BEDTIME Xifaxan 550 mg tablet 550 mg PO BID metformin 500 mg tablet extended release 24 hr 1,000 mg PO BID furosemide 20 mg tablet 20 mg PO DAILY losartan 25 mg tablet 25 mg PO BEDTIME (DME) Diabetic Shoes with 3 pairs of inserts See Rx Instructions .Route .MEDSUPPLY Qty: 1 0RF Rx Instructions: As directed carvedilol 3.125 mg tablet 3.125 mg PO BID Qty: 180 2RF gabapentin 300 mg Capsule 300 mg PO BID lovastatin 20 mg Tablet 20 mg PO BEDTIME Jardiance 25 mg Tablet 25 mg PO BEDTIME tizanidine 4 mg tablet 4 mg PO Q8H PRN (Reason: Spasms) albuterol sulfate 90 mcg/actuation HFA aerosol inhaler 2 puff INHALATION Q4H PRN (Reason: Shortness Of Breath) hydrocodone-acetaminophen 5-325 mg tablet 1 tab PO BEDTIME PRN (Reason: pain) amitriptyline 50 mg Tablet 50 mg PO BEDTIME ggdlmeuvtm-vnfcmmvfwybbc-taui 50-325-40 mg Tablet 1 tab PO Q4H PRN (Reason: Migraine Headache) trazodone 150 mg Tablet 150 mg PO BEDTIME Taltz Autoinjector 80 mg/mL auto-injector 80 mg SUBCUT Q30D Discharge Orders: Discharge ED (Routine); Ordered 01/11/25 Ordered By: Manuel Carrillo Referrals: Luis Fernando Rhodes [Primary Care Provider] - 01/18/25 Patient Instructions: Pain Management, Chest Pain (ED) Activity Restrictions/Additional Instructions: Please read all discharge instructions and abide by recommendations and return precautions. Make an appointment to follow-up with your primary care doctor as directed for follow-up. Return to ER if getting worse or other emergent symptoms. Print Language: Slovak Coding Level of Care Code ED Business Support Liaison for Felipa Pérez
[2025-01-11 12:08] LABS: Basophils % 0.6 %; Eosinophils % 0.4 %; Hematocrit 33.1 % (37-53); Lymphocytes # 0.3 10^3/uL (0.8-4.8); Lymphocytes % 6.5 %; Mean Corpuscular HGB Conc 29.9 g/dL (30-55); Mean Corpuscular Hemoglobin 26.3 pg (27-33); Mean Platelet Volume 9.7 fL (7.4-10.4); Monocytes # 0.3 10^3/uL (0.2-0.9); Monocytes % 5.9 %; Neutrophils # 4.12 10^3/uL (1.8-7.7); Neutrophils % 83.4 %; Nucleated Red Blood Cells % 0 %; Platelet Count 95 10^3/cmm (157-399); Red Blood Count 3.76 10^6/uL (3.85-5.65); White Blood Count 4.94 10^3/uL (3.29-11.43)
[2025-01-11 12:25] LABS: Alanine Aminotransferase 19 U/L (0-41); Albumin Level 3.9 g/dL (3.5-5.2); Alkaline Phosphatase 162 U/L (40-130); Aspartate Amino Transferase 35 U/L (0-40); Blood Urea Nitrogen 7 mg/dL (6-20); Calcium 8.5 mg/dL (8.5-10.5); Carbon Dioxide 23 mmol/L (22-29); Chloride 106 mmol/L (98-107); Creatinine Clr Calc Pharmacy 185.3892; Globulin 2.4 g/dL (1.3-4.6); Glomerular Filtration Rate 170.8 mL/min (90-130); Glucose 220 mg/dL (65-115); Osmolality Calculated 291 mOsm/kg (285-295); Sodium 138 mmol/L (136-145); Total Bilirubin 0.7 mg/dL (0.15-1.2); Total Protein 6.3 g/dL (6.6-8.7)
[2025-01-11 12:27] LABS: Troponin(5th) Baseline < 6 ng/L (0-15)
--- NOTE | 2025-01-11 12:54 | PC.PHAR ---
Pt states he has been busy and has not taken his medications in a week.
--- NOTE | 2025-01-11 13:23 | ECG_ITS ---
[facility]25[facility]01[facility]11 Pat Name: Nicko Obrien Department: Room: Gender: Male Corporate Scheduler: : 1965 Requested By: Manuel Carrillo Order Number: [id number] Lindsay MD: Chiara Perez M.D. Measurements Intervals [place] Rate: 95 P: 46 WV: 156 QRS: 30 QRSD: 94 T: 30 QT: 377 QTc: 476 Interpretive Statements SINUS RHYTHM Compared to ECG 01/11/2025 10:12:42 Myocardial infarct finding no longer present Electronically Signed On 01-11-2025 19:52:11 CDT by Chiara Perez M.D. [email or web address]
[2025-01-11 14:19] LABS: Troponin 5 2HR Delta 0.00001 ABS# (0-10)
== END 2025-01-11 15:54 | disposition home or self-care (01) ==
PROVIDERS: Emergency Provider Emergency Medicine; PCP Family Medicine
DX: R07.9 Chest pain, unspecified (principal); T50.905A Adverse effect of unspecified drugs, medicaments and biological substances, initial encounter; X58.XXXA Exposure to other specified factors, initial encounter; Z79.82 Long term (current) use of aspirin; Z79.84 Long term (current) use of oral hypoglycemic drugs; J44.9 Chronic obstructive pulmonary disease, unspecified; Z86.73 Personal history of transient ischemic attack (TIA), and cerebral infarction without residual deficits; E78.5 Hyperlipidemia, unspecified; I10 Essential (primary) hypertension; E11.9 Type 2 diabetes mellitus without complications
CPT/HCPCS: 36415; 71045; 80053; 84484; 85025; 93005; 99285

== ENCOUNTER 2025-02-01 09:30 | Oncology outpatient (recurring) (ONCR) | payer MEDICARE, MEDICAID, SELFPAY ==
[2025-01-24] MEDS: ferric carboxy (PYXIS) 750 MG in sodium chloride 0.9% (100 ml) 100 ML 345 MG IV (11:37)
[2025-01-24 12:01] VITALS: BP 122/73; PULSE 84; RESP 17; TEMP 37.2; O2SAT 94
[2025-02-01] MEDS: ferric carboxy (PYXIS) 750 MG in sodium chloride 0.9% (100 ml) 100 ML 230 MG IV (09:55)
[2025-02-01 10:41] VITALS: BP 109/63; PULSE 75; RESP 17; TEMP 36.7; O2SAT 96
== END 2025-02-18 23:59 | disposition home or self-care (01) ==
PROVIDERS: PCP Family Medicine; Visit Provider Internal Medicine Medical Oncology
DX: Z53.9 Procedure and treatment not carried out, unspecified reason; D50.9 Iron deficiency anemia, unspecified; Z79.899 Other long term (current) drug therapy
CPT/HCPCS: 96365; J1439

== ENCOUNTER → 2025-03-01 15:28 | Outpatient (BNVA) | payer OTHER, MEDICAID, SELFPAY | PROVIDERS: PCP Family Medicine; Visit Provider Internal Medicine Cardiovascular Disease | DX: R06.02 Shortness of breath (principal); I21.9 Acute myocardial infarction, unspecified | CPT/HCPCS: 80048; 83880; 93005 ==

== ENCOUNTER 2025-03-20 13:46 | Oncology outpatient (recurring) (ONCR) | payer OTHER, MEDICAID, SELFPAY ==
[2025-02-28 13:23] LABS: Basophils % 0.8 %; Eosinophils # 0.1 10^3/uL (0.0-0.8); Eosinophils % 4.1 %; Hematocrit 37.4 % (37-53); Lymphocytes # 0.7 10^3/uL (0.8-4.8); Lymphocytes % 26.6 %; Mean Corpuscular HGB Conc 31.6 g/dL (30-55); Mean Corpuscular Hemoglobin 28.7 pg (27-33); Mean Platelet Volume 9.6 fL (7.4-10.4); Monocytes # 0.3 10^3/uL (0.2-0.9); Monocytes % 11.5 %; Neutrophils # 1.39 10^3/uL (1.8-7.7); Nucleated Red Blood Cells % 0 %; Platelet Count 69 10^3/cmm (157-399); Red Blood Count 4.11 10^6/uL (3.85-5.65); White Blood Count 2.44 10^3/uL (3.29-11.43)
[2025-02-28 13:35] LABS: Alanine Aminotransferase 25 U/L (0-41); Albumin Level 3.8 g/dL (3.5-5.2); Alkaline Phosphatase 134 U/L (40-130); Anion Gap 15.3 (5-19); Aspartate Amino Transferase 39 U/L (0-40); Blood Urea Nitrogen 8 mg/dL (6-20); Calcium 8.4 mg/dL (8.5-10.5); Carbon Dioxide 21 mmol/L (22-29); Chloride 102 mmol/L (98-107); Ferritin 84 ng/mL (30-400); Globulin 2.6 g/dL (1.3-4.6); Glomerular Filtration Rate 170.8 mL/min (90-130); Glucose 294 mg/dL (65-115); Iron 29 ug/dL (59-158); Osmolality Calculated 287 mOsm/kg (285-295); Potassium 4.3 mmol/L (3.5-5.1); Sodium 134 mmol/L (136-145); Total Bilirubin 0.6 mg/dL (0.15-1.2); Total Iron Binding Capacity 320 mcg/dl; Total Protein 6.4 g/dL (6.6-8.7); Unsaturated Iron Binding 291 ug/dL (112-347)
[2025-03-20 14:06] LABS: Basophils % 0.8 %; Eosinophils # 0.1 10^3/uL (0.0-0.8); Eosinophils % 4.1 %; Hematocrit 35.3 % (37-53); Lymphocytes # 0.7 10^3/uL (0.8-4.8); Mean Corpuscular HGB Conc 31.7 g/dL (30-55); Mean Corpuscular Hemoglobin 27.6 pg (27-33); Mean Corpuscular Volume 86.9 fl (82-101); Mean Platelet Volume 9.3 fL (7.4-10.4); Monocytes # 0.3 10^3/uL (0.2-0.9); Monocytes % 13.5 %; Neutrophils # 1.33 10^3/uL (1.8-7.7); Neutrophils % 54.6 %; Nucleated Red Blood Cells % 0 %; Platelet Count 76 10^3/cmm (157-399); Red Blood Count 4.06 10^6/uL (3.85-5.65); Red Cell Distribution Width 15.4 % (12.1-15.1); White Blood Count 2.44 10^3/uL (3.29-11.43)
[2025-03-20 14:26] LABS: Alanine Aminotransferase 24 U/L (0-41); Albumin Level 3.7 g/dL (3.5-5.2); Alkaline Phosphatase 183 U/L (40-130); Anion Gap 17.1 (5-19); Aspartate Amino Transferase 38 U/L (0-40); Blood Urea Nitrogen 7 mg/dL (6-20); Calcium 8.7 mg/dL (8.5-10.5); Carbon Dioxide 20 mmol/L (22-29); Chloride 103 mmol/L (98-107); Ferritin 44 ng/mL (30-400); Globulin 2.8 g/dL (1.3-4.6); Glomerular Filtration Rate 170.8 mL/min (90-130); Glucose 384 mg/dL (65-115); Iron 24 ug/dL (59-158); Osmolality Calculated 296 mOsm/kg (285-295); Potassium 4.1 mmol/L (3.5-5.1); Sodium 136 mmol/L (136-145); Total Bilirubin 0.5 mg/dL (0.15-1.2); Total Iron Binding Capacity 340 mcg/dl; Total Protein 6.5 g/dL (6.6-8.7); Unsaturated Iron Binding 316 ug/dL (112-347)
== END 2025-03-20 23:59 | disposition home or self-care (01) ==
PROVIDERS: Nurse Practitioner Family; PCP Family Medicine; Visit Provider Internal Medicine Medical Oncology
DX: Z53.9 Procedure and treatment not carried out, unspecified reason; D50.9 Iron deficiency anemia, unspecified; K75.81 Nonalcoholic steatohepatitis (NASH); K74.60 Unspecified cirrhosis of liver; R03.0 Elevated blood-pressure reading, without diagnosis of hypertension; D70.9 Neutropenia, unspecified; D69.1 Qualitative platelet defects; Z79.899 Other long term (current) drug therapy
CPT/HCPCS: 36415; 80053; 82728; 83540; 83550; 85025; 99214

== ENCOUNTER 2025-04-11 09:15 | Oncology outpatient (recurring) (ONCR) | payer OTHER, MEDICAID, SELFPAY ==
[2025-03-28] MEDS: ferric derisomaltose 1,000 MG in sodium chloride 0.9% (100 ml) 100 ML 330 MG IV (15:42)
[2025-03-28 16:13] VITALS: BP 120/72; PULSE 81; RESP 16; TEMP 36.8; O2SAT 98
--- NOTE | 2025-04-11 09:15 | USCV_ITS ---
Nicko Obrien Age: 59 Gender: M : 1965 Exam Date: 04/11/2025 09:10 Ordering Phys: Chiara Perez MD ([email or web address]) Technologist: KOKO Exam Location: [facility] [place] Indication: CP BP: 161 / 79 HR: 67 Rhythm: Sinus Technical Quality: Adequate MEASUREMENTS (Male / Female) Normal Values 2D ECHO LV Diastolic Diameter PLAX 5.3 cm 4.2 - 5.9 / 3.9 - 5.3 cm IVS Diastolic Thickness 1.0 cm 0.6 - 1.0 / 0.6 - 0.9 cm IVS Systolic Thickness 1.7 cm LVPW Diastolic Thickness 1.0 cm 0.6 - 1.0 / 0.6 - 0.9 cm LVPW Systolic Thickness 1.8 cm LVOT Diameter 2.0 cm LV Ejection Fraction 2D Teich 69.0 % LV Ejection Fraction MOD 4C 66.8 % LV Ejection Fraction MOD 2C 51.3 % LV Ejection Fraction 2C AL 52.5 % LA Diameter 3.7 cm RA Systolic Volume 4C AL 79.1 ml RA Systolic Volume 4C MOD 76.3 ml LA Sys Volume AL 79.3 cm cubed LA Sys Volume Index AL 34.8 cm cubed/m squared Aorta at Sinotubular Diameter 2.6 cm M-MODE LA Ao Ratio MM 1.4 AV Cusp Separation MM 1.8 cm DOPPLER AV Peak Velocity 138.0 cm/s LVOT Peak Velocity 122.0 cm/s AV Area Cont Eq vti 2.9 cm squared AV Area Cont Eq pk 2.8 cm squared MV Peak Velocity 107.0 cm/s MV Area PHT 4.2 cm squared Mitral E to A Ratio 1.1 TR Peak Velocity 168.0 cm/s TR Peak Gradient 11.3 mmHg TV Peak E Velocity 88.0 cm/s PV Peak Velocity 127.0 cm/s FINDINGS Left Ventricle Normal left ventricular size, systolic function and wall thickness, with no regional wall motion abnormalities. Left ventricular ejection fraction is estimated at 60 %. Normal diastolic function. Right Ventricle The right ventricle is normal in size and function. Right Atrium The right atrium is normal in size. Left Atrium Moderately increased left atrial size. Mitral Valve Mildly thickened mitral valve. No mitral valve stenosis. Mild mitral valve regurgitation. Aortic Valve Structurally normal aortic valve without significant sclerosis or stenosis. There is no aortic regurgitation. Tricuspid Valve Structurally normal tricuspid valve without significant stenosis or regurgitation. Pulmonary artery systolic pressure is normal. Pulmonic Valve Structurally normal pulmonic valve without significant stenosis. There is no pulmonic regurgitation. Pericardium Normal pericardium without effusion. Aorta Normal ascending aorta dimension. IVC The inferior vena cava appears normal. CONCLUSIONS Normal left ventricular size, systolic function and wall thickness, with no regional wall motion abnormalities. Left ventricular ejection fraction is estimated at 60 %. Normal diastolic function. Mildly thickened mitral valve. No mitral valve stenosis. Mild mitral valve regurgitation. There is no pericardial effusion. Right atrial pressure is around 5 mm of mercury. Bhaskar Ramachandran MD (Electronically Signed) Final Date: 14 April 2025 13:47 S
== END 2025-04-20 23:59 | disposition home or self-care (01) ==
LOC: ONCMED 13:04 → RAD 04-12 → ONCMED 04-12 09:00
PROVIDERS: PCP Family Medicine; Visit Provider Internal Medicine Medical Oncology
DX: R06.09 Other forms of dyspnea; I51.7 Cardiomegaly; I34.0 Nonrheumatic mitral (valve) insufficiency; Z53.9 Procedure and treatment not carried out, unspecified reason
CPT/HCPCS: 93306; 96365; J1437

== ENCOUNTER 2025-05-29 12:14 | Oncology outpatient (recurring) (ONCR) | payer OTHER, MEDICAID, SELFPAY ==
[2025-05-29 12:50] LABS: Hematocrit 39.9 % (37-53); Hemoglobin 13.90 g/dL (11.27-16.99); Mean Corpuscular HGB Conc 34.8 g/dL (30-55); Mean Corpuscular Hemoglobin 30.9 pg (27-33); Mean Corpuscular Volume 88.7 fl (82-101); Nucleated Red Blood Cells % 0 %; Platelet Count 72 10^3/cmm (157-399); Red Blood Count 4.50 10^6/uL (3.85-5.65); White Blood Count 2.51 10^3/uL (3.29-11.43)
[2025-05-29 13:13] LABS: Alanine Aminotransferase 25 U/L (0-41); Albumin Level 3.8 g/dL (3.5-5.2); Alkaline Phosphatase 150 U/L (40-130); Anion Gap 16.1 (5-19); Aspartate Amino Transferase 39 U/L (0-40); Blood Urea Nitrogen 5 mg/dL (6-20); Calcium 8.9 mg/dL (8.5-10.5); Carbon Dioxide 22 mmol/L (22-29); Chloride 103 mmol/L (98-107); Creatinine Clr Calc Pharmacy 183.3228; Globulin 2.9 g/dL (1.3-4.6); Glucose 245 mg/dL (65-115); Osmolality Calculated 289 mOsm/kg (285-295); Potassium 4.1 mmol/L (3.5-5.1); Sodium 137 mmol/L (136-145); Total Protein 6.7 g/dL (6.6-8.7)
[2025-05-29 13:59] LABS: Ferritin 131 ng/mL (30-400); Iron 157 ug/dL (59-158); Total Iron Binding Capacity 265 mcg/dl; Unsaturated Iron Binding 108 ug/dL (112-347)
[2025-05-29 14:09] LABS: Vitamin B12 641 pg/mL (232-1245)
== END 2025-06-20 23:59 | disposition home or self-care (01) ==
PROVIDERS: PCP Family Medicine; Visit Provider Internal Medicine Medical Oncology
DX: D50.9 Iron deficiency anemia, unspecified (principal); D72.819 Decreased white blood cell count, unspecified; D69.1 Qualitative platelet defects; K75.81 Nonalcoholic steatohepatitis (NASH); K74.60 Unspecified cirrhosis of liver
CPT/HCPCS: 80053; 82607; 82728; 82746; 83540; 83550; 85025; 99213

== ENCOUNTER 2025-06-12 10:33 | Outpatient (CLI) | payer OTHER, MEDICAID, SELFPAY | END 2025-06-12 10:34 | disposition home or self-care (01) | PROVIDERS: PCP Family Medicine; Visit Provider Nurse Practitioner Family | DX: L40.0 Psoriasis vulgaris (principal); L81.4 Other melanin hyperpigmentation; L57.8 Other skin changes due to chronic exposure to nonionizing radiation; L82.1 Other seborrheic keratosis; D17.1 Benign lipomatous neoplasm of skin and subcutaneous tissue of trunk; Z79.899 Other long term (current) drug therapy; L57.0 Actinic keratosis | CPT/HCPCS: 17000; 36415; 86480; 99214 ==

== ENCOUNTER → 2025-06-13 09:06 | Outpatient (BNVA) | payer OTHER, MEDICAID, SELFPAY | PROVIDERS: PCP Family Medicine; Visit Provider Internal Medicine Cardiovascular Disease | DX: R07.89 Other chest pain (principal); I10 Essential (primary) hypertension; Z86.73 Personal history of transient ischemic attack (TIA), and cerebral infarction without residual deficits; Z82.49 Family history of ischemic heart disease and other diseases of the circulatory system | CPT/HCPCS: 99214 ==

== ENCOUNTER → 2025-06-26 08:44 | Outpatient (BNVA) | payer OTHER, MEDICAID, SELFPAY | PROVIDERS: PCP Family Medicine; Visit Provider Podiatrist Foot & Ankle Surgery | DX: E11.42 Type 2 diabetes mellitus with diabetic polyneuropathy (principal); M20.11 Hallux valgus (acquired), right foot; M20.12 Hallux valgus (acquired), left foot; M20.41 Other hammer toe(s) (acquired), right foot; M20.42 Other hammer toe(s) (acquired), left foot; E11.8 Type 2 diabetes mellitus with unspecified complications; Z79.84 Long term (current) use of oral hypoglycemic drugs | CPT/HCPCS: 99213 ==

== ENCOUNTER 2025-07-11 08:50 | Oncology outpatient (recurring) (ONCR) | payer OTHER, MEDICAID, SELFPAY ==
[2025-07-10 10:26] LABS: Hematocrit 37.7 % (37-53); Hemoglobin 13.10 g/dL (11.27-16.99); Mean Corpuscular HGB Conc 34.7 g/dL (30-55); Mean Corpuscular Hemoglobin 31.4 pg (27-33); Mean Corpuscular Volume 90.4 fl (82-101); Nucleated Red Blood Cells % 0 %; Platelet Count 80 10^3/cmm (157-399); Red Blood Count 4.17 10^6/uL (3.85-5.65); White Blood Count 2.83 10^3/uL (3.29-11.43)
[2025-07-10 10:44] LABS: Alanine Aminotransferase 25 U/L (0-41); Albumin Level 3.8 g/dL (3.5-5.2); Alkaline Phosphatase 166 U/L (40-130); Aspartate Amino Transferase 39 U/L (0-40); Blood Urea Nitrogen 7 mg/dL (6-20); Calcium 9.1 mg/dL (8.5-10.5); Carbon Dioxide 21 mmol/L (22-29); Chloride 100 mmol/L (98-107); Ferritin 87 ng/mL (30-400); Globulin 2.8 g/dL (1.3-4.6); Glucose 279 mg/dL (65-115); Iron 44 ug/dL (59-158); Osmolality Calculated 286 mOsm/kg (285-295); Sodium 134 mmol/L (136-145); Total Iron Binding Capacity 331 mcg/dl; Total Protein 6.6 g/dL (6.6-8.7); Unsaturated Iron Binding 287 ug/dL (112-347)
[2025-07-10 10:45] LABS: Anion Gap 16.7 (5-19); Potassium 3.7 mmol/L (3.5-5.1)
[2025-07-10 11:00] LABS: Vitamin B12 678 pg/mL (232-1245)
--- NOTE | 2025-07-11 | ECG_ITS ---
[facility] Test Date: 2025-07-11 Pat Name: Nicko Obrien Department: Room: Gender: Male Creche Attendant: : 1965 Requested By: Tu Peraza Order Number: [id number] Montoya MD: ANJEL ASHBY Interpretive Statements Lung unchanged pre/post procedure; Intraprocedure shortess of breath; Symptoms resoled by discharge NOTE: Please note that this is the electrocardiogram portion of the Lexiscan/Sestamibi stress test. The perfusion scan will be documented separately. DATA: Baseline heart rate was 83 beats per minute. Baseline blood pressure was 147/71 millimeters of mercury. Target heart rate was 162. Maximum heart rate achieved was 95. which was 58 % of the predicted target heart rate. Maximum blood pressure was 147/72 millimeters of mercury. The reason for ending the test was completion of the protocol. The patient did not experience any symptoms. ELECTROCARDIOGRAM: BASELINE: Sinus rhythm. Normal axis. Otherwise, no ST-T changes suggestive of ischemia noted. No arrhythmia noted. EXERCISE: After Lexiscan injection, no ST-T changes suggestive of ischemic noted. No arrhythmia noted. CONCLUSION: Please note due to baseline abnormality of the EKG specificity and sensitivity of the EKG portion of LexiScan MIBI stress test will be low 1. EKG not suggestive of ischemia 2. Lexiscan injection unremarkable. 3. Perfusion scan will be documented separately. Electronically Signed On 07-16-2025 22:33:35 CDT by ANJEL ASHBY [email or web address] [id number]
[2025-07-11 09:01] VITALS: BMI 36.0
--- NOTE | 2025-07-11 09:11 | NMCV_ITS ---
NM nurys perf SPECT r/s* [id number] Micah, Nicko Age: 59 Gender: M : 1965 Exam Date: 07/11/2025 10:20 Ordering Phys: Tu Peraza MD ([email or web address]) Technologist: LILY Cortés Exam Location: [facility] Indications: CP STRESS TEST Please see separate stress test report in [facility] for full findings IMAGE PROTOCOL Rest/Stress 1 Lexiscan Day Radiopharmaceutical Dose (mCi) Administration Site Administered by Rest: Tc-99m 10.7 IV LILY Cortés Sestamibi Stress:Tc-99m 32.9 IV LILY Davila Sestamibi Rest: 11-Jul-2025 60 Discovery 630 Stress: 11-Jul-2025 30 Discovery 630 0.4mg Lexiscan. Images obtained in supine and prone position. SPECT RESULTS Technical Quality: Good Raw Data Analysis: Normal Image Corrections: No attenuation or motion correction applied Summed Stress Score: 1 Summed Rest Score: 2 Summed Difference Score: 1 PERFUSION FINDINGS SPECT images demonstrate homogeneous tracer distribution throughout the myocardium. FUNCTIONAL RESULTS (calculated via Gated SPECT) Stress Image LV EF (%): 69 Stress EDV (mL):95 TID: 1.12 Stress ESV (mL):29 FUNCTIONAL FINDINGS: There is normal left ventricular systolic function. IMPRESSIONS Myocardial perfusion imaging is normal. Bhaskar Ramachandran MD (Electronically Signed) Final Date: 13 July 2025 19:35 S
[2025-07-11 11:07] VITALS: BP 139/65; PULSE 90
== END 2025-07-21 23:59 | disposition home or self-care (01) ==
LOC: CDL 08:52 → ONCMED 09:56
PROVIDERS: Nurse Practitioner; PCP Family Medicine; Visit Provider Internal Medicine Cardiovascular Disease
DX: R07.9 Chest pain, unspecified (principal)
CPT/HCPCS: 36415; 78452; 80053; 82607; 82728; 82746; 83540; 83550; 85025; 93017; 96374; 99214; A9500; J2785

== ENCOUNTER 2025-09-11 06:46 | Outpatient (CLI) | payer OTHER, MEDICAID, SELFPAY ==
--- NOTE | 2025-09-11 06:52 | US_ITS ---
WS: [id number] RIGHT UPPER QUADRANT ULTRASOUND HISTORY: Cirrhosis. COMPARISON: 12/13/2020 Liver: 15.1 cm in length. Low normal size liver. Very coarse echotexture and lobulated contour of the surface. More pronounced change of decreased echogenicity and surface bulging of the LEFT lobe of the liver. The entire liver is not well visualized. Portal Vein: Normal hepatopetal flow with monophasic waveform. Gallbladder: Limited visualization. No stones identified. CBD: 0.2 cm Pancreas: Completely obscured. Right kidney: 11.9 cm in length. Normal size and echogenicity. No hydronephrosis or mass. Aorta and IVC: Limited. No ascites. US/US abdomen limited [id number] IMPRESSION: 1. Markedly cirrhotic appearance of the liver. More focal area of decreased ec hogenicity and bulging of the hepatic contour involving the LEFT lobe of the li christina. Recommend MRI liver with and without contrast to evaluate for possible hep atoma. 2. Nonvisualized pancreas. 3. Limited RIGHT upper quadrant ultrasound.
== END 2025-09-11 06:47 | disposition home or self-care (01) ==
LOC: RAD 06:49
PROVIDERS: PCP Family Medicine; Visit Provider Social Worker Clinical
DX: K74.60 Unspecified cirrhosis of liver (principal); R93.2 Abnormal findings on diagnostic imaging of liver and biliary tract
CPT/HCPCS: 76705